=== PATIENT | female | born 1985 | race Two or more races ===

== ENCOUNTER 2016-08-01 01:17 | Inpatient (IN) | payer BC, OTHER ==
[2016-08-01] MEDS ORDERED: RINGERS SOLUTION,LACTATED 300 ML IV ONE (01:44)
[2016-08-01 02:08] LABS: ABSOLUTE EOSINOPHILS # (AUTO) 0.2 10^3/uL (0.0-0.6); ABSOLUTE LYMPHOCYTES (AUTO) 2.5 10^3/uL (0.5-4.7); ABSOLUTE NEUT (AUTO) 8.4 10^3/uL (1.7-8.2); BASOPHILS % (AUTO) 0.3 % (0-2); EOSINOPHILS % (AUTO) 1.7 % (0-6); HEMATOCRIT 34.1 % (36.0-47.0); HEMOGLOBIN 11.4 g/dL (12.0-15.5); HGB HCT DIFFERENCE 0.1; LYMPHOCYTES % (AUTO) 20.7 % (13-45); MEAN CORPUSCULAR HEMOGLOBIN 29.9 pg (27.0-33.4); MEAN CORPUSCULAR HGB CONC 33.4 g/dL (32.0-36.0); MEAN CORPUSCULAR VOLUME 90 fl (80-97); MONOCYTES % (AUTO) 8.1 % (3-13); RED BLOOD COUNT 3.81 10^6/uL (3.72-5.28); RED CELL DISTRIBUTION WIDTH 14.1 % (11.5-14.0); SEGMENTED NEUTROPHILS % (AUTO) 69.2 % (42-78); WHITE BLOOD COUNT 12.2 10^3/uL (4.0-10.5)
[2016-08-01 02:13] LABS: APPEARANCE,URINE CLOUDY; BILIRUBIN,URINE NEGATIVE (NEGATIVE); GLUCOSE, URINE 50 mg/dL (NEGATIVE); KETONES,URINE NEGATIVE (NEGATIVE); LEUKOCYTE ESTERASE,URINE LARGE (NEGATIVE); NITRITE,URINE NEGATIVE (NEGATIVE); PROTEIN,URINE NEGATIVE (NEGATIVE); URINE SPECIFIC GRAVITY 1.013; UROBILINOGEN,URINE NEGATIVE mg/dL (<2.0)
[2016-08-01 02:27] LABS: ALANINE AMINOTRANSFERASE 39 U/L (9-52); ALBUMIN 3.3 g/dL (3.5-5.0); ALKALINE PHOSPHATASE 109 U/L (38-126); ANION GAP 12 (5-19); ASPARTATE AMINO TRANSFERASE 22 U/L (14-36); BILIRUBIN,DIRECT 0.2 mg/dL (0.0-0.4); BILIRUBIN,TOTAL 0.4 mg/dL (0.2-1.3); BLOOD UREA NITROGEN 15 mg/dL (7-20); CALCIUM 9.4 mg/dL (8.4-10.2); CARBON DIOXIDE 21 mmol/L (22-30); CHLORIDE 107 mmol/L (98-107); CREATININE RESULT 0.53 mg/dL (0.52-1.25); GLUCOSE 113 mg/dL (75-110); LDH 387 U/L (313-618); POTASSIUM 4.1 mmol/L (3.6-5.0); TOTAL PROTEIN 6.3 g/dL (6.3-8.2)
[2016-08-01 02:30] LABS: URINE BARBITURATES SCREEN NEGATIVE; URINE METHADONE SCREEN NEGATIVE; URINE OPIATES LOW NEGATIVE; URINE PHENCYCLIDINE SCREEN NEGATIVE
[2016-08-01] MEDS: DINOPROSTONE 10 MG VAGINAL INSERT.SR PV PRN ×2 (03:18→11:47)
[2016-08-01] MEDS ORDERED: DINOPROSTONE 10 MG VAGINAL INSERT.SR ONE (03:18)
[2016-08-01] MEDS: RINGERS SOLUTION,LACTATED 1,000 ML IV PRN (03:19)
[2016-08-01] MEDS ORDERED: INSULIN LISPRO 100 UNIT/ML 3 ML VIAL SUBCUT SCH ×3 (08:00→19:30)
[2016-08-01] MEDS ORDERED: INSULIN NPH (ISOPHANE), HUMAN 100 UNIT/ML 3 ML SUBCUT SCH ×3 (08:00→19:30)
--- NOTE | 2016-08-01 08:01 | L&D Flow Sheet ---
LD Flowsheet Datetime Report Generated by CPN: 08/01/2016 08:00 Datetime: 08/01/2016 07:39 Vital Signs NBP Sys/Tania/Mean (mmHg): 116 (QS system process) : 65 (QS system process) : 84 (QS system process) Pulse: 68 (QS system process) Datetime: 08/01/2016 07:31 Pain Pain Scale: 1 (Cezar De Jesus RN) Pain Presence: Intermittent (Cezar De Jesus RN) Pain Type: Contraction (Cezar De Jesus RN) Pain Location: Abdomen (Cezar De Jesus RN) Pain Relief Measures: Comfort Measures (Cezar De Jesus RN) Pain Coping: Talking Through Contractions; Declines Medication or Epidural (Cezar De Jesus RN) Comfort Measures: Breathing/Relaxation (Cezar D eJesus RN) Provider Reviewed Strip: Yes (Cezar De Jesus RN) Patient Care Comments: No distress noted, no complaints. (Cezar De Jesus RN) Notification Reason: Status Update; Status; Labor Status; Uterine Activity (Cezar De Jesus RN) Communication Comments: Dr Miller notified of pt blood glucose level, history, vs, medications ordered, provider reviewed strip. Orders obtained for regular diet, pt may eat breakfast, then check pt blood glucose and give novolog 7units am/ 5units pm SQ, novalin 7units am/ 9units SQ pm, labetalol 200mg PO BID, levothyroxine 50mcg PO daily. (Cezar De Jesus RN) Datetime: 08/01/2016 07:30 Uterine Activity Monitor Mode: External; Palpation (Cezar Liza, RN) Frequency (min): irregular (Cezar Liza, RN) Quality: Mild (Cezar Liza, RN) Resting Tone (Palpate): Relaxed (Cezar Liza, RN) Assessment A Monitor Mode: External US (Cezar Liza, RN) FHR Baseline Rate : 130 (Cezar Liza, RN) Variability: Moderate 6-25 bpm (Cezar Liza, RN) Accelerations: 15X15 (Cezar Liza, RN) Decelerations: None (Cezar Liza, RN) Maternal Assessment Level of Consciousness: Fully Conscious (Cezar Liza, RN) Maternal Assessment Level of Consciousness: Fully Conscious (Cezar Liza, RN) DTR's/Clonus: DTRs 2+; No Clonus (Cezar Liza, RN) DTR's/Clonus: DTRs 2+; No Clonus (Cezar Liza, RN) Headache: Denies (Cezar Liza, RN) Headache: Denies (Cezar Liza, RN) Breath Sounds, Left: Clear and Equal (Cezar Liza, RN) Breath Sounds, Right: Clear and Equal (Cezar Liza, RN) Nausea/Vomiting: Denies (Cezar Liza, RN) RUQ Epigastric Pain: Denies (Czear Liza, RN) Communication Communication: RN at Bedside; RN Reviewed Strip (Cezar Liza, RN) Datetime: 08/01/2016 07:25 Bedside Blood Glucose: 97 (QS system process) Datetime: 08/01/2016 07:20 I/O Interventions: Up to BR (Cezar Liza, RN) Datetime: 08/01/2016 07:09 Vital Signs NBP Sys/Tania/Mean (mmHg): 133 (QS system process) : 83 (QS system process) : 103 (QS system process) Pulse: 70 (QS system process) Datetime: 08/01/2016 07:00 Uterine Activity Monitor Mode: External (Yung Kane, RN) Frequency (min): x1 (Yung Kane, RN) Quality: Mild (Yung Kane, RN) Resting Tone (Palpate): Relaxed (Yung Kane, RN) Assessment A Monitor Mode: External US (Yung Kane, RN) FHR Baseline Rate : 125 (Yung Kane, RN) Variability: Moderate 6-25 bpm (Yung Kane, RN) Accelerations: 10X10 (Yung Kane, RN) Datetime: 08/01/2016 06:40 Vital Signs NBP Sys/Tania/Mean (mmHg): 143 (QS system process) : 92 (QS system process) : 112 (QS system process) Pulse: 84 (QS system process) Datetime: 08/01/2016 06:30 Uterine Activity Monitor Mode: External (Yung Middleton RN) Frequency (min): 5-9 (Yung Middleton RN) Quality: Mild (Yung Middleton RN) Duration (sec): 40-50 (Yung Middleton RN) Resting Tone (Palpate): Relaxed (Yung Middleton RN) Assessment A Monitor Mode: External US (Yung Middleton, RN) FHR Baseline Rate : 120 (Yung Middleton, RN) Variability: Moderate 6-25 bpm (Yung Middleton, RN) Accelerations: 15X15 (Yung Middleton, RN) Datetime: 08/01/2016 06:10 Vital Signs NBP Sys/Tania/Mean (mmHg): 130 (QS system process) : 83 (QS system process) : 101 (QS system process) Pulse: 69 (QS system process) Datetime: 08/01/2016 06:00 Uterine Activity Monitor Mode: External (Yung Kane, RN) Frequency (min): x1 (Yung Kane, RN) Quality: Mild (Yung Kane, RN) Duration (sec): 100 (Yung Kane, RN) Resting Tone (Palpate): Relaxed (Yung Kane, RN) Assessment A Monitor Mode: External US (Yung Kane, RN) FHR Baseline Rate : 135 (Yung Kane, RN) Variability: Moderate 6-25 bpm (Yung Kane, RN) Accelerations: 15X15 (Yung Kane, RN) Datetime: 08/01/2016 05:46 I/O Interventions: Up to BR (Yung Kane, RN) Datetime: 08/01/2016 05:39 Vital Signs NBP Sys/Tania/Mean (mmHg): 123 (QS system process) : 69 (QS system process) : 91 (QS system process) Pulse: 71 (QS system process) Datetime: 08/01/2016 05:30 Uterine Activity Monitor Mode: External (Yung Kane, RN) Frequency (min): 5-9 (Yung Kane, RN) Quality: Mild (Yung Kane, RN) Duration (sec): 60-110 (Yung Kane, RN) Resting Tone (Palpate): Relaxed (Yung Kane, RN) Assessment A Monitor Mode: External US (Yung Kane, RN) FHR Baseline Rate : 135 (Yung Kane, RN) Variability: Moderate 6-25 bpm (Yung Kane, RN) Accelerations: None (Yung Kane, RN) Datetime: 08/01/2016 05:09 Vital Signs NBP Sys/Tania/Mean (mmHg): 132 (QS system process) : 77 (QS system process) : 100 (QS system process) Pulse: 73 (QS system process) Datetime: 08/01/2016 05:00 Uterine Activity Monitor Mode: External (Yung Kane, RN) Frequency (min): 4-10 (Yung Kane, RN) Quality: Mild (Yung Kane, RN) Duration (sec): 40-60 (Yung Kane, RN) Resting Tone (Palpate): Relaxed (Yung Kane, RN) Assessment A Monitor Mode: External US (Yung Kane, RN) FHR Baseline Rate : 140 (Yung Kane, RN) Variability: Moderate 6-25 bpm (Yung Kane, RN) Datetime: 08/01/2016 04:39 Vital Signs NBP Sys/Tania/Mean (mmHg): 113 (QS system process) : 67 (QS system process) : 85 (QS system process) Pulse: 76 (QS system process) Datetime: 08/01/2016 04:30 Frequency (min): x3 (Yung Kane, RN) Duration (sec): 40-50 (Yung Kane, RN) Assessment A Monitor Mode: External US (Yung Kane, RN) FHR Baseline Rate : 130 (Yung Kane, RN) Variability: Moderate 6-25 bpm (Yung Kane, RN) Datetime: 08/01/2016 04:09 Vital Signs NBP Sys/Tania/Mean (mmHg): 110 (QS system process) : 59 (QS system process) : 79 (QS system process) Pulse: 72 (QS system process) Datetime: 08/01/2016 04:01 Patient Care IV/Blood Work: New IV Bag Hung (Yung Middleton, RN) Patient Care Comments: LR infusing at 125 mL/hr (Yung Kane, RN) Datetime: 08/01/2016 03:59 Uterine Activity Monitor Mode: External (Yung Kane, RN) Frequency (min): X2 (Yung Middleton, RN) Quality: Mild (Yung Kane, RN) Duration (sec): 50 (Yung Middleton, RN) Resting Tone (Palpate): Relaxed (Yung Middleton, RN) Assessment A Monitor Mode: External US (Yung Middleton, RN) FHR Baseline Rate : 135 (Yung Middleton, RN) Variability: Moderate 6-25 bpm (Yung Maxwellford, RN) Datetime: 08/01/2016 03:39 Vital Signs NBP Sys/Tania/Mean (mmHg): 131 (QS system process) : 77 (QS system process) : 98 (QS system process) Pulse: 70 (QS system process) Datetime: 08/01/2016 03:30 Uterine Activity Monitor Mode: External (Yung Kane, RN) Frequency (min): 2-9 (Yung Kane, RN) Quality: Mild (Yung Kane, RN) Duration (sec): 40-70 (Yung Kane, RN) Resting Tone (Palpate): Relaxed (Yung Kane, RN) Assessment A Monitor Mode: External US (Yung Kane, RN) FHR Baseline Rate : 135 (Yung Kane, RN) Variability: Moderate 6-25 bpm (Yung Kane, RN) Accelerations: 15X15 (Yung Kane, RN) Datetime: 08/01/2016 03:21 Medications Cervical Ripening Agents: Cervidil (Yung Kane, RN) Datetime: 08/01/2016 03:13 Vaginal Exam Dilatation (cm): 1.0 (Yung Middleton RN) Effacement (%): 25 (Jacqueline Brice RN) Station: -3 (Jacqueline Brice RN) Exam by: ALANNA Mary (Yung Middleton RN) Cervix, Position: Posterior (Yung Middleton, ALANNA) Datetime: 08/01/2016 03:10 Vital Signs NBP Sys/Tania/Mean (mmHg): 130 (QS system process) : 80 (QS system process) : 100 (QS system process) Pulse: 71 (QS system process) Datetime: 08/01/2016 03:03 Patient Care IV/Blood Work: IV Started (Yung Middleton, RN) Patient Care Comments: IV restarted, last IV placed not flowing properly. New IV placed in L. Forearm. LR bolusing per order (Yung Middleton, RN) Datetime: 08/01/2016 03:00 Uterine Activity Monitor Mode: External (Yung Middleton, RN) Frequency (min): 5.5-7.5 (Yung Middleton, RN) Quality: Mild (Yung Middleton, RN) Duration (sec): 60-90 (Yung Maxwellford, RN) Resting Tone (Palpate): Relaxed (Yung Middleton, RN) Assessment A Monitor Mode: External US (Yung Middleton, RN) FHR Baseline Rate : 135 (Yung Middleton, RN) Variability: Moderate 6-25 bpm (Yung Kane, RN) Accelerations: 10X10 (Yung Middleton, RN) Datetime: 08/01/2016 02:50 Pain Pain Scale: 3 (Annotations: Only has pain during contraction ) (Yung Middleton, RN) Pain Presence: Intermittent (uYng Middleton, RN) Pain Type: Cramping (Yung Middleton, RN) Pain Location: Abdomen; Back (Yung Middleton, RN) Pain Goal: 0 (Yung Middleton, RN) Pain Relief Measures: Comfort Measures (Yung Middleton, RN) Pain Coping: Talking Through Contractions; Breathing Through Contractions (Yung Kane, RN) Membrane Status: Intact (Yung Kane, RN) Vaginal Bleeding: None (Yung Kane, RN) Maternal Assessment Level of Consciousness: Fully Conscious (Yung Middleton, RN) DTR's/Clonus: DTRs 2+; No Clonus (Yung Kane, RN) Headache: Denies (Yung Kane, RN) Nausea/Vomiting: Denies (Yung Kane, RN) RUQ Epigastric Pain: Denies (Yung Kane, RN) Datetime: 08/01/2016 02:30 Uterine Activity Monitor Mode: External (Yung Kane, RN) Frequency (min): 7.5-9 (Yung Kane, RN) Quality: Mild (Yung Kane, RN) Duration (sec): 70-100 (Yung Kane, RN) Resting Tone (Palpate): Relaxed (Yung Kane, RN) Assessment A Monitor Mode: External US (Yung Kane, RN) FHR Baseline Rate : 135 (Yung Kane, RN) Variability: Moderate 6-25 bpm (Yung Kane, RN) Accelerations: 15X15 (Yung Kane, RN) Datetime: 08/01/2016 02:13 Procedures: Consents Signed (Yungkobe Middleton, RN) Datetime: 08/01/2016 02:09 Patient Care IV/Blood Work: IV Started; IV Bolus Started; IV Infusing per Order (Yung Middleton, RN) Patient Care Comments: LR Bolusing (Yungkobe Middleton, RN) Datetime: 08/01/2016 02:05 Procedures: Labs Drawn (Yung Middleton RN)
[2016-08-01] MEDS ORDERED: LEVOTHYROXINE SODIUM 0.05 MG TABLET PO ONE (08:30)
[2016-08-01] MEDS: INSULIN NPH (ISOPHANE), HUMAN 100 UNIT/ML 3 ML SUBCUT SCH (09:44)
[2016-08-01] MEDS: INSULIN LISPRO 100 UNIT/ML 3 ML VIAL SUBCUT SCH (09:44)
[2016-08-01] MEDS: LABETALOL HCL 200 MG TABLET PO SCH ×2 (09:45→21:45)
[2016-08-01] MEDS ORDERED: LABETALOL HCL 200 MG TABLET PO SCH (10:00)
[2016-08-01] MEDS ORDERED: MISOPROSTOL 0.1 MG TABLET ONE ×2 (16:45→21:16)
[2016-08-01] MEDS ORDERED: MISOPROSTOL 0.1 MG TABLET PO ONE ×2 (17:00→21:11)
[2016-08-01] MEDS ORDERED: INSULIN LISPRO 100 UNIT/ML 3 ML VIAL ONE (18:52)
[2016-08-01] MEDS ORDERED: INSULIN NPH (ISOPHANE), HUMAN 100 UNIT/ML 3 ML ONE (18:53)
--- NOTE | 2016-08-01 20:01 | L&D Flow Sheet ---
LD Flowsheet Datetime Report Generated by CPN: 08/01/2016 20:00 Datetime: 08/01/2016 19:47 Level of Consciousness: Fully Conscious ([facility], ) DTR's/Clonus: DTRs 2+; No Clonus ([facility], ) Headache: Denies ([facility], ) Breath Sounds, Left: Clear and Equal ([facility], ) Breath Sounds, Right: Clear and Equal ([facility], RN) Nausea/Vomiting: Denies ([facility], ) RUQ Epigastric Pain: Denies ([facility], ) Datetime: 08/01/2016 19:41 NBP Sys/Tania/Mean (mmHg): 120 (QS system process) : 80 (QS system process) : 96 (QS system process) Pulse: 76 (QS system process) Datetime: 08/01/2016 19:10 NBP Sys/Tania/Mean (mmHg): 125 (QS system process) : 84 (QS system process) : 99 (QS system process) Pulse: 75 (QS system process) Datetime: 08/01/2016 19:04 Communication Comments: Dr Miller states to hold PM labetalol medication at this time. (Cezar De Jesus RN) Datetime: 08/01/2016 19:00 Monitor Mode: External; Palpation (Cezar De Jesus RN) Frequency (min): 1-5 (Cezar De Jesus RN) Quality: Mild (Cezar De Jesus RN) Duration (sec): 50-80 (Cezar De Jesus, RN) Duration Criteria: Less than Two 120 Second Contractions (Cezar De Jesus RN) Pattern: Normal: <= 5 Contractions in 10 Minutes (Cezar De Jesus RN) Resting Tone (Palpate): Relaxed (Cezar De Jesus RN) Monitor Mode: External US (Cezar De Jesus RN) FHR Baseline Rate : 135 (Cezar De Jesus RN) Variability: Moderate 6-25 bpm (Cezar De Jesus RN) Accelerations: 15X15 (Cezar De Jesus, RN) Decelerations: None (Cezar De Jesus RN) Pain Scale: 2 (Cezar De Jesus RN) Pain Presence: Intermittent (Cezar De Jesus RN) Pain Type: Contraction (Cezar De Jesus RN) Pain Location: Abdomen (Cezar De Jesus RN) Pain Relief Measures: Comfort Measures (Cezar De Jesus RN) Pain Coping: Talking Through Contractions; Declines Medication or Epidural (Cezar De Jesus RN) Comfort Measures: Breathing/Relaxation (Cezar De Jesus RN) Communication: RN at Bedside; RN Reviewed Strip (Cezar De Jesus RN) Datetime: 08/01/2016 18:52 Bedside Blood Glucose: 67 L (Annotations: MD Notified) (QS system process) Datetime: 08/01/2016 18:40 NBP Sys/Tania/Mean (mmHg): 114 (QS system process) : 69 (QS system process) : 85 (QS system process) Pulse: 76 (QS system process) Datetime: 08/01/2016 18:30 Respirations: 16 (Cezar Liza, RN) Temperature (F): 98.4 (Cezar Liza, RN) Temperature (C): 36.9 (QS system process) Monitor Mode: External; Palpation (Cezar Liza, RN) Frequency (min): 2-5 (Cezar Liza, RN) Quality: Mild (Cezar Liza, RN) Duration (sec): 70-90 (Cezar Liza, RN) Duration Criteria: Less than Two 120 Second Contractions (Cezar Liza, RN) Pattern: Normal: <= 5 Contractions in 10 Minutes (Cezar De Jesus, RN) Resting Tone (Palpate): Relaxed (Cezar De Jesus RN) Monitor Mode: External US (Cezar De Jesus RN) FHR Baseline Rate : 135 (Cezar Lizarragat, RN) Variability: Moderate 6-25 bpm (Cezar Lizarragat, RN) Accelerations: 15X15 (Cezar De Jesus, RN) Decelerations: None (Cezar De Jesus, RN) Level of Consciousness: Fully Conscious (Cezar De Jesus, RN) Headache: Denies (Cezar De Jesus RN) Nausea/Vomiting: Denies (Cezar De Jesus RN) RUQ Epigastric Pain: Denies (Cezar De Jesus RN) Communication: RN at Bedside; RN Reviewed Strip (Cezar De Jesus RN) Datetime: 08/01/2016 18:10 NBP Sys/Tania/Mean (mmHg): 108 (QS system process) : 58 (QS system process) : 76 (QS system process) Pulse: 72 (QS system process) Datetime: 08/01/2016 18:03 I/O Interventions: Up to BR (Cezar De Jesus, RN) Datetime: 08/01/2016 18:00 Respirations: 18 (Cezar De Jesus, RN) Monitor Mode: External; Palpation (Cezar De Jesus, RN) Frequency (min): 3-6 (Cezar De Jesus, RN) Quality: Mild (Cezar De Jesus, RN) Duration (sec): 60-80 (Cezar Jordaneet, RN) Duration Criteria: Less than Two 120 Second Contractions (Cezar De Jesus, RN) Pattern: Normal: <= 5 Contractions in 10 Minutes (Cezar De Jesus, RN) Resting Tone (Palpate): Relaxed (Cezar De Jesus, RN) Monitor Mode: External US (Cezar De Jesus, RN) FHR Baseline Rate : 135 (Cezar De Jesus, RN) Variability: Moderate 6-25 bpm (Cezar Lizarragat, RN) Accelerations: 15X15 (Cezar Jordaneet, RN) Decelerations: None (Cezar De Jesus, RN) Pain Scale: 1 (Cezar De Jesus RN) Pain Presence: Intermittent (Cezar De Jesus RN) Pain Type: Contraction (Cezar De Jesus, RN) Pain Location: Abdomen (Cezar De Jesus, RN) Pain Relief Measures: Comfort Measures (Cezar De Jesus RN) Pain Coping: Talking Through Contractions; Declines Medication or Epidural (Cezar De Jesus RN) Level of Consciousness: Fully Conscious (Cezar De Jesus RN) Headache: Denies (Cezar De Jesus RN) Nausea/Vomiting: Denies (Cezar De Jesus RN) Communication: RN at Bedside; RN Reviewed Strip (Cezar De Jesus RN) Datetime: 08/01/2016 17:40 NBP Sys/Tania/Mean (mmHg): 102 (QS system process) : 57 (QS system process) : 76 (QS system process) Pulse: 74 (QS system process) Datetime: 08/01/2016 17:30 Respirations: 18 (Cezar De Jesus RN) Monitor Mode: External; Palpation (Cezar De Jesus RN) Frequency (min): irregular (Cezar De Jesus RN) Quality: Mild (Cezar De Jesus RN) Resting Tone (Palpate): Relaxed (Cezar De Jesus RN) Monitor Mode: External US (Cezar De Jesus RN) FHR Baseline Rate : 135 (Cezar De Jesus RN) Variability: Moderate 6-25 bpm (Cezar De Jesus RN) Accelerations: 15X15 (Cezar De Jesus RN) Decelerations: None (Cezar De Jesus RN) Pain Presence: None/Denies (Cezar De Jesus RN) Level of Consciousness: Fully Conscious (Cezar De Jesus RN) Headache: Denies (Cezar De Jesus RN) Nausea/Vomiting: Denies (Cezar De Jesus RN) RUQ Epigastric Pain: Denies (Cezar De Jesus RN) Patient Care Comments: No distress noted, pt resting. (Cezar De Jesus RN) Communication: RN at Bedside; RN Reviewed Strip (Cezar De Jesus RN) Datetime: 08/01/2016 17:10 NBP Sys/Tania/Mean (mmHg): 119 (QS system process) : 73 (QS system process) : 92 (QS system process) Pulse: 77 (QS system process) Datetime: 08/01/2016 17:00 Respirations: 18 (Cezar De Jesus RN) Monitor Mode: External; Palpation (Cezar De Jesus RN) Frequency (min): irregular (Cezar De Jesus RN) Quality: Mild (Cezar De Jesus RN) Duration Criteria: Less than Two 120 Second Contractions (Cezar De Jesus RN) Pattern: Normal: <= 5 Contractions in 10 Minutes (Cezar De Jesus RN) Resting Tone (Palpate): Relaxed (Cezar De Jesus RN) Monitor Mode: External US (Cezar De Jesus RN) FHR Baseline Rate : 135 (Cezar De Jesus RN) Variability: Moderate 6-25 bpm (Cezar De Jesus RN) Accelerations: 15X15 (Cezar De Jesus RN) Decelerations: None (Cezar De Jesus RN) Pain Scale: 1 (Cezar De Jesus RN) Pain Type: Contraction (Cezar De Jesus RN) Pain Coping: Talking Through Contractions; Declines Medication or Epidural (Cezar De Jesus RN) Level of Consciousness: Fully Conscious (Cezar De Jesus RN) Headache: Denies (Cezar De Jesus RN) Nausea/Vomiting: Denies (Cezar De Jesus RN) Cervical Ripening Agents: Cytotec @ 50mcg PO (Cezar De Jesus RN) Provider Reviewed Strip: Yes (Cezar De Jesus RN) Communication: RN at Bedside; RN Reviewed Strip (Cezar De Jesus RN) Datetime: 08/01/2016 16:40 NBP Sys/Tania/Mean (mmHg): 116 (QS system process) : 69 (QS system process) : 87 (QS system process) Pulse: 89 (QS system process) Datetime: 08/01/2016 16:00 Patient Care Comments: Pt ambulating on unit, spouse at side. (Cezar De Jesus RN) Datetime: 08/01/2016 15:21 Respirations: 18 (Cezar De Jesus, RN) Monitor Mode: External; Palpation (Cezar De Jesus, RN) Frequency (min): irregular (Cezar Jordaneet, RN) Quality: Mild (Cezar Jordaneet, RN) Resting Tone (Palpate): Relaxed (Cezar Liza, RN) Monitor Mode: External US (Cezar De Jesus, RN) FHR Baseline Rate : 130 (Cezar De Jesus, RN) Variability: Moderate 6-25 bpm (Cezar Jordaneet, RN) Accelerations: 15X15 (Cezar Jordaneet, RN) Decelerations: None (Cezar Lizarragat, RN) Level of Consciousness: Fully Conscious (Cezar De Jesus, RN) Headache: Denies (Cezar De Jesus RN) Nausea/Vomiting: Denies (Cezar De Jesus RN) RUQ Epigastric Pain: Denies (Cezar De Jesus RN) IV/Blood Work: IV Saline Locked (Cezar De Jesus RN) Patient Care Comments: IV covered for shower. (Cezar De Jesus, ALANNA) Communication: RN at Bedside; RN Reviewed Strip (Cezar De Jesus RN) Communication Comments: Dr Miller notified of pt VE, reviewed strip. Orders to give cytotec 0.05mg PO at 1700. (Cezar De Jesus RN) Communication Comments: Monitors removed for shower; pt family member at side to assist pt with shower. (Cezar De Jesus RN) Datetime: 08/01/2016 15:20 Dilatation (cm): 1.0 (Cezar De Jesus RN) Effacement (%): 50 (Cezar De Jesus RN) Station: -3 (Cezar De Jesus RN) Exam by: Cheryl De Jesus RN (Cezar De Jesus, ALANNA) Vaginal Bleeding: None (Cezar De Jesus RN) Cervix, Consistency: Firm (Cezar De Jesus RN) Cervix, Position: Posterior (Ceazr De Jesus RN) Medication Comments: Cervidil removed (Cezar De Jesus RN) Datetime: 08/01/2016 15:09 NBP Sys/Tania/Mean (mmHg): 135 (QS system process) : 84 (QS system process) : 105 (QS system process) Pulse: 78 (QS system process) Datetime: 08/01/2016 15:00 Respirations: 16 (Cezar De Jesus, RN) Monitor Mode: External; Palpation (Cezar De Jesus, RN) Frequency (min): irregular (Cezar Lizarragat, RN) Quality: Mild (Cezar Jordaneet, RN) Resting Tone (Palpate): Relaxed (Cezar Jordaneet, RN) Monitor Mode: External US (Cezar De Jesus, RN) FHR Baseline Rate : 130 (Cezar Lizarragat, RN) Variability: Moderate 6-25 bpm (Cezar Liza, RN) Accelerations: 15X15 (Cezar Jordaneet, RN) Decelerations: None (Cezar De Jesus, RN) Communication: RN at Bedside; RN Reviewed Strip (Cezar De Jesus, RN) Datetime: 08/01/2016 14:40 NBP Sys/Tania/Mean (mmHg): 127 (QS system process) : 77 (QS system process) : 98 (QS system process) Pulse: 81 (QS system process) Datetime: 08/01/2016 14:30 Respirations: 18 (Cezar De Jesus, RN) Monitor Mode: External; Palpation (Cezar De Jesus, RN) Frequency (min): 3-8 (Cezar De Jesus, RN) Quality: Mild (Cezar Liza, RN) Duration (sec): 80-100 (Cezar Liza, RN) Duration Criteria: Less than Two 120 Second Contractions (Cezar De Jesus, RN) Pattern: Normal: <= 5 Contractions in 10 Minutes (Cezar Liza, RN) Resting Tone (Palpate): Relaxed (Cezar Liza, RN) Monitor Mode: External US (Cezar D eJesus, RN) FHR Baseline Rate : 135 (Cezar Lizarragat, RN) Variability: Moderate 6-25 bpm (Cezar Liza, RN) Accelerations: 15X15 (Cezar Liza, RN) Decelerations: None (Cezar Jordaneet, RN) Pain Scale: 1 (Cezar De Jesus, RN) Pain Type: Contraction (Cezar Lizarragat, RN) Level of Consciousness: Fully Conscious (Cezar De Jesus, RN) Headache: Denies (Cezar De Jesus, RN) Nausea/Vomiting: Denies (Cezar De Jesus, RN) Communication: RN at Bedside; RN Reviewed Strip (Cezar Liza, RN) Datetime: 08/01/2016 14:19 Communication Comments: pt sitting up to eat; intermittently coming off monitors. (Cezar Crespofleet, RN) Datetime: 08/01/2016 14:14 Communication Comments: Dr Miller notified of pt blood glucose 79, states pt may eat lunch tray now. (Cezar Crespofleet, RN) Datetime: 08/01/2016 14:13 Bedside Blood Glucose: 79 (Annotations: MD Notified) (QS system process) Datetime: 08/01/2016 14:11 NBP Sys/Tania/Mean (mmHg): 125 (QS system process) : 82 (QS system process) : 98 (QS system process) Pulse: 76 (QS system process) Datetime: 08/01/2016 14:00 Respirations: 20 (Cezar Jordaneet, RN) Monitor Mode: External; Palpation (Cezar Lizarragat, RN) Frequency (min): irregular (Cezar Liza, RN) Quality: Mild (Cezar Jordaneet, RN) Duration Criteria: Less than Two 120 Second Contractions (Cezar Jordaneet, RN) Pattern: Normal: <= 5 Contractions in 10 Minutes (Cezar Lizarragat, RN) Resting Tone (Palpate): Relaxed (Cezar De Jesus RN) Monitor Mode: External US (Cezar De Jesus RN) FHR Baseline Rate : 130 (Cezar De Jesus RN) Variability: Moderate 6-25 bpm (Cezar De Jesus RN) Accelerations: 15X15 (Cezar De Jesus RN) Decelerations: None (Cezar De Jesus RN) Pain Scale: 1 (Cezar De Jesus RN) Pain Type: Contraction (Cezar De Jesus RN) Pain Coping: Talking Through Contractions; Declines Medication or Epidural (Cezar De Jesus RN) Level of Consciousness: Fully Conscious (Cezar De Jesus RN) Headache: Denies (Cezar De Jesus RN) Nausea/Vomiting: Denies (Cezar De Jesus RN) RUQ Epigastric Pain: Denies (Cezar De Jesus RN) Communication: RN at Bedside; RN Reviewed Strip (Cezar De Jesus RN) Datetime: 08/01/2016 13:57 I/O Interventions: Up to BR (Cezar De Jesus RN) Datetime: 08/01/2016 13:39 NBP Sys/Tania/Mean (mmHg): 121 (QS system process) : 76 (QS system process) : 94 (QS system process) Pulse: 77 (QS system process) Datetime: 08/01/2016 13:30 Respirations: 20 (Cezar De Jesus RN) Temperature (F): 98.6 (Cezar De Jesus RN) Temperature (C): 37.0 (QS system process) Monitor Mode: External; Palpation (Cezar De Jesus RN) Frequency (min): irregular (Cezar De Jesus RN) Quality: Mild (Cezar De Jesus RN) Resting Tone (Palpate): Relaxed (Cezar De Jesus RN) Monitor Mode: External US (Cezar De Jesus RN) FHR Baseline Rate : 130 (Cezar De Jesus RN) Variability: Moderate 6-25 bpm (Cezar De Jesus RN) Accelerations: 15X15 (Cezar De Jesus RN) Decelerations: None (Cezar De Jesus RN) Pain Scale: 1 (Cezar De Jesus RN) Pain Type: Contraction (Cezar De Jesus RN) Pain Coping: Declines Medication or Epidural (Cezar De Jesus RN) Level of Consciousness: Fully Conscious (Cezar De Jesus RN) Headache: Denies (Cezar De Jesus RN) Nausea/Vomiting: Denies (Cezar De Jesus RN) Communication: RN at Bedside; RN Reviewed Strip (Cezar De Jesus RN) Datetime: 08/01/2016 13:09 NBP Sys/Tania/Mean (mmHg): 126 (QS system process) : 76 (QS system process) : 95 (QS system process) Pulse: 81 (QS system process) Datetime: 08/01/2016 13:00 Respirations: 18 (Cezar Liza, RN) Monitor Mode: External; Palpation (Cezar Liza, RN) Frequency (min): irregular (Cezar Liza, RN) Quality: Mild (Cezar Liza, RN) Duration Criteria: Less than Two 120 Second Contractions (Cezar Liza, RN) Pattern: Normal: <= 5 Contractions in 10 Minutes (Cezar Liza, RN) Resting Tone (Palpate): Relaxed (Cezar Liza, RN) Monitor Mode: External US (Cezar Liza, RN) FHR Baseline Rate : 135 (Cezar Liza, RN) FHR Baseline Changes: No Baseline Change (Cezar Liza, RN) Variability: Moderate 6-25 bpm (Cezar Liza, RN) Accelerations: 15X15 (Cezar De Jesus RN) Decelerations: None (Cezar De Jesus RN) Pain Scale: 1 (Cezar De Jesus RN) Pain Presence: Intermittent (Cezar De Jesus RN) Pain Type: Contraction (Cezar De Jesus RN) Pain Location: Abdomen (Cezar De Jesus RN) Pain Relief Measures: Comfort Measures (Cezar De Jesus RN) Pain Coping: Talking Through Contractions; Declines Medication or Epidural (Cezar De Jesus RN) Level of Consciousness: Fully Conscious (Cezar De Jesus RN) Headache: Denies (Cezar De Jesus RN) Nausea/Vomiting: Denies (Cezar De Jesus RN) RUQ Epigastric Pain: Denies (Cezar De Jesus RN) Comfort Measures: Breathing/Relaxation (Cezar De Jesus RN) Patient Care Comments: No distress noted, watching tv (Cezar De Jesus RN) Communication: RN at Bedside; RN Reviewed Strip (Cezar De Jesus RN) Datetime: 08/01/2016 12:39 NBP Sys/Tania/Mean (mmHg): 121 (QS system process) : 76 (QS system process) : 94 (QS system process) Pulse: 83 (QS system process) Datetime: 08/01/2016 12:30 Respirations: 16 (Cezar Jordaneet, RN) Monitor Mode: External; Palpation (Cezar Lizarragat, RN) Frequency (min): 7-8 (Cezar Jordaneet, RN) Quality: Mild (Cezar Liza, RN) Duration (sec): 60-80 (Cezar Liza, RN) Duration Criteria: Less than Two 120 Second Contractions (Cezar Liza, RN) Pattern: Normal: <= 5 Contractions in 10 Minutes (Cezar Liza, RN) Resting Tone (Palpate): Relaxed (Cezar Liza, RN) Monitor Mode: External US (Cezar Lizarragat, RN) FHR Baseline Rate : 135 (Cezar Crespofleet, RN) Variability: Moderate 6-25 bpm (Cezar Liza, RN) Accelerations: 15X15 (Cezar Liza, RN) Decelerations: None (Cezar Liza, RN) Pain Scale: 1 (Cezar Liza, RN) Pain Type: Contraction (Cezar Liza, RN) Level of Consciousness: Fully Conscious (Cezar Jordaneet, RN) Headache: Denies (Cezar Jordaneet, RN) Nausea/Vomiting: Denies (Cezar Jordaneet, RN) RUQ Epigastric Pain: Denies (Cezar Jordaneet, RN) Patient Position/Activity: Right Lateral (Cezar Lizarragat, RN) Communication: RN at Bedside; RN Reviewed Strip (Cezar De Jesus, RN) Datetime: 08/01/2016 12:00 Respirations: 18 (Cezar De Jesus, ALANNA) Monitor Mode: External; Palpation (Cezar De Jesus, RN) Frequency (min): 2-8 (Cezar De Jesus, RN) Quality: Mild (Cezar De Jesus RN) Duration (sec): 80-90 (Cezar Lizarragat, RN) Duration Criteria: Less than Two 120 Second Contractions (Cezar De Jesus, RN) Pattern: Normal: <= 5 Contractions in 10 Minutes (Cezar De Jesus RN) Resting Tone (Palpate): Relaxed (Cezar De Jesus RN) Monitor Mode: External US (Cezar De Jesus RN) FHR Baseline Rate : 135 (Cezar De Jesus, RN) Variability: Moderate 6-25 bpm (Cezar De Jesus, RN) Accelerations: 15X15 (Cezar De Jesus, RN) Decelerations: None (Cezar De Jesus RN) Pain Scale: 1 (Cezar De Jesus RN) Pain Type: Contraction (Cezar De Jesus RN) Pain Coping: Declines Medication or Epidural (Cezar De Jesus RN) Communication: RN at Bedside; RN Reviewed Strip (Cezar De Jesus RN) Datetime: 08/01/2016 11:41 NBP Sys/Tania/Mean (mmHg): 117 (QS system process) : 63 (QS system process) : 84 (QS system process) Pulse: 77 (QS system process) Datetime: 08/01/2016 11:30 Respirations: 18 (Cezar De Jesus RN) Monitor Mode: External; Palpation (Cezar De Jesus RN) Frequency (min): 6-9 (Cezar De Jesus, ALANNA) Quality: Mild (Cezar De Jesus, RN) Duration (sec): 90-110 (Cezar De Jesus, ALANNA) Duration Criteria: Less than Two 120 Second Contractions (Cezar De Jesus, ALANNA) Pattern: Normal: <= 5 Contractions in 10 Minutes (Cezar De Jesus, RN) Resting Tone (Palpate): Relaxed (Cezar De Jesus, ALANNA) Monitor Mode: External US (Cezar De Jesus, ALANNA) FHR Baseline Rate : 135 (Cezar De Jesus, RN) Variability: Moderate 6-25 bpm (Cezar De Jesus, RN) Accelerations: 15X15 (Cezar De Jesus, RN) Decelerations: None (Cezar De Jesus RN) Pain Scale: 1 (Cezar De Jesus RN) Pain Presence: Intermittent (Cezar De Jesus RN) Pain Type: Contraction (Cezar De Jesus, ALANNA) Pain Location: Abdomen (Cezar De Jesus RN) Pain Relief Measures: Comfort Measures (Cezar De Jesus RN) Pain Coping: Talking Through Contractions; Declines Medication or Epidural (Cezar De Jesus RN) Level of Consciousness: Fully Conscious (Cezar De Jesus RN) Headache: Denies (Cezar De Jesus RN) Nausea/Vomiting: Denies (Cezar De Jesus RN) RUQ Epigastric Pain: Denies (Cezar De Jesus RN) Comfort Measures: Breathing/Relaxation (Cezar De Jesus RN) Communication: RN at Bedside; RN Reviewed Strip (Cezar De Jesus RN) Datetime: 08/01/2016 11:09 NBP Sys/Tania/Mean (mmHg): 107 (QS system process) : 59 (QS system process) : 80 (QS system process) Pulse: 74 (QS system process) Datetime: 08/01/2016 11:01 Communication Comments: Dr Miller states pt may take a late lunch and shower when cervidil removed. (Cezar De Jesus RN) Datetime: 08/01/2016 11:00 Monitor Mode: External; Palpation (Cezar Liza, RN) Frequency (min): 8-10 (Cezar Liza, RN) Quality: Mild (Cezar Liza, RN) Duration (sec): 70-90 (Cezar Liza, RN) Duration Criteria: Less than Two 120 Second Contractions (Cezar Liza, RN) Pattern: Normal: <= 5 Contractions in 10 Minutes (Cezar Liza, RN) Resting Tone (Palpate): Relaxed (Cezar Liza, RN) Monitor Mode: External US (Cezar Liza, RN) FHR Baseline Rate : 135 (Cezar Liza, RN) Variability: Moderate 6-25 bpm (Cezar Liza, RN) Accelerations: 15X15 (Cezar Liza, RN) Decelerations: None (Cezar Liza, RN) Communication: RN at Bedside; RN Reviewed Strip (Cezar Liza, RN) Datetime: 08/01/2016 10:46 Bedside Blood Glucose: 95 (QS system process) Datetime: 08/01/2016 10:40 NBP Sys/Tania/Mean (mmHg): 115 (QS system process) : 58 (QS system process) : 79 (QS system process) Pulse: 72 (QS system process) Datetime: 08/01/2016 10:30 Respirations: 16 (Cezar De Jesus, ALANNA) Monitor Mode: External; Palpation (Cezar De Jesus, ALANNA) Frequency (min): 2-8 (Cezar De Jesus RN) Quality: Moderate (Cezar De Jesus RN) Duration (sec): 70-90 (Cezar De Jeuss, RN) Duration Criteria: Less than Two 120 Second Contractions (Cezar De Jesus, RN) Pattern: Normal: <= 5 Contractions in 10 Minutes (Cezar De Jesus, RN) Resting Tone (Palpate): Relaxed (Cezar De Jesus, RN) Monitor Mode: External US (Cezar De Jesus, RN) FHR Baseline Rate : 130 (Cezar De Jesus, RN) Variability: Moderate 6-25 bpm (Cezar De Jesus, RN) Accelerations: 15X15 (Cezar De Jesus, RN) Decelerations: None (Cezar De Jesus, RN) Pain Scale: 1 (Cezar De Jesus RN) Pain Type: Contraction (Cezar De Jesus RN) Pain Coping: Declines Medication or Epidural (Cezar De Jesus RN) Level of Consciousness: Fully Conscious (Cezar De Jesus RN) Headache: Denies (Cezar De Jesus RN) Nausea/Vomiting: Denies (Cezar De Jesus RN) Communication: RN at Bedside; RN Reviewed Strip (Cezar De Jesus RN) Datetime: 08/01/2016 10:10 NBP Sys/Tania/Mean (mmHg): 117 (QS system process) : 59 (QS system process) : 82 (QS system process) Pulse: 72 (QS system process) Datetime: 08/01/2016 10:00 Respirations: 16 (Cezar De Jesus RN) Monitor Mode: External; Palpation (Cezar De Jesus RN) Frequency (min): 6-8 (Cezar De Jesus RN) Quality: Mild (Cezar De Jesus RN) Duration (sec): 60-80 (Cezar De Jesus RN) Duration Criteria: Less than Two 120 Second Contractions (Cezar De Jesus RN) Pattern: Normal: <= 5 Contractions in 10 Minutes (Cezar De Jesus RN) Resting Tone (Palpate): Relaxed (Cezar De Jesus RN) Monitor Mode: External US (Cezar De Jesus RN) FHR Baseline Rate : 135 (Cezar De Jesus RN) Variability: Moderate 6-25 bpm (Cezar De Jesus RN) Accelerations: 15X15 (Cezar De Jesus RN) Decelerations: None (Cezar De Jesus RN) Pain Scale: 1 (Cezar De Jesus RN) Pain Type: Contraction (Cezar De Jesus RN) Patient Care Comments: No complaints, watching tv. (Cezar De Jesus RN) Communication: RN at Bedside; RN Reviewed Strip (Cezar De Jesus RN) Datetime: 08/01/2016 09:45 Bedside Blood Glucose: 93 (Cezar De Jesus RN) Medication Comments: Humalog, Humulin, Labetalol, Synthroid administered. fiber technicianALANNA Ni at bedside to verify dose administered. Breakfast tray given. (Cezar De Jesus RN) Datetime: 08/01/2016 09:40 NBP Sys/Tania/Mean (mmHg): 128 (QS system process) : 72 (QS system process) : 91 (QS system process) Pulse: 81 (QS system process) Datetime: 08/01/2016 09:30 Respirations: 18 (Cezar Lizarragat, RN) Monitor Mode: External; Palpation (Cezar De Jesus, RN) Frequency (min): irregular (Cezar De Jesus, RN) Quality: Mild (Cezar Lizarragat, RN) Resting Tone (Palpate): Relaxed (Cezar De Jesus, RN) Monitor Mode: External US (Cezar De Jesus, RN) FHR Baseline Rate : 130 (Cezar Jordaneet, RN) FHR Baseline Changes: No Baseline Change (Cezar Jordaneet, RN) Variability: Moderate 6-25 bpm (Cezar Liza, RN) Accelerations: 15X15 (Cezar Jordaneet, RN) Decelerations: None (Cezar Lizarragat, RN) Pain Scale: 1 (Cezar De Jesus RN) Communication: RN at Bedside; RN Reviewed Strip (Cezar De Jesus, RN) Datetime: 08/01/2016 09:09 NBP Sys/Tania/Mean (mmHg): 110 (QS system process) : 66 (QS system process) : 83 (QS system process) Pulse: 71 (QS system process) Datetime: 08/01/2016 08:51 Communication Comments: Awaiting breakfast tray. (Cezar Liza, RN) Datetime: 08/01/2016 08:39 NBP Sys/Tania/Mean (mmHg): 125 (QS system process) : 75 (QS system process) : 94 (QS system process) Pulse: 76 (QS system process) Datetime: 08/01/2016 08:30 Respirations: 18 (Cezar De Jesus, RN) Monitor Mode: External; Palpation (Cezar De Jesus, RN) Frequency (min): irregular (Cezar De Jesus, RN) Quality: Mild (Cezar Lizarragat, RN) Resting Tone (Palpate): Relaxed (Cezar De Jesus, RN) Monitor Mode: External US (Cezar De Jesus, RN) FHR Baseline Rate : 130 (Cezar De Jesus, RN) Variability: Moderate 6-25 bpm (Cezar De Jesus, RN) Accelerations: 15X15 (Cezar De Jesus, RN) Decelerations: None (Cezar De Jesus RN) Pain Scale: 1 (Cezar De Jesus RN) Pain Presence: Intermittent (Cezar De Jesus, RN) Pain Type: Contraction (Cezar De Jesus, RN) Pain Location: Abdomen (Cezar De Jesus, RN) Pain Relief Measures: Comfort Measures (Cezar De Jesus, RN) Level of Consciousness: Fully Conscious (Cezar De Jesus, RN) Headache: Denies (Cezar De Jesus, RN) Nausea/Vomiting: Denies (Cezar De Jesus, RN) RUQ Epigastric Pain: Denies (Cezar De Jesus, RN) Comfort Measures: Breathing/Relaxation (Cezar De Jesus, RN) Communication: RN at Bedside; RN Reviewed Strip (Cezar De Jesus RN) Datetime: 08/01/2016 08:09 NBP Sys/Tania/Mean (mmHg): 136 (QS system process) : 81 (QS system process) : 103 (QS system process) Pulse: 70 (QS system process) Datetime: 08/01/2016 08:00 Temperature (F): 98.1 (Cezar De Jesus RN) Temperature (C): 36.7 (QS system process) Monitor Mode: External; Palpation (Cezar De Jesus RN) Frequency (min): irregular (Cezar De Jesus RN) Quality: Mild (Cezar De Jesus RN) Resting Tone (Palpate): Relaxed (Cezar De Jesus RN) Monitor Mode: External US (Cezar De Jesus RN) FHR Baseline Rate : 130 (Cezar De Jesus RN) FHR Baseline Changes: No Baseline Change (Cezar De Jesus RN) Variability: Moderate 6-25 bpm (Cezar De Jesus RN) Accelerations: 15X15 (Cezar De Jesus RN) Decelerations: None (Cezar De Jesus RN) Instructional Method: Demo; Verbal; Patient Instructed; Family/Support Person Instructed; Verbalized Understanding (Cezar De Jesus RN) Plan of Care: Plan of Care Discussed; Vaginal Delivery; Induction (Cezar De Jesus RN) Labor/Induction: Labor Stages; Cervical Ripening; Induction (Cezar De Jesus RN) Pain Management: Epidural; PRN Medications; Pain Scale/Goals; Comfort Measures (Cezar De Jesus RN) Medications: Cervical Ripening (Cezar De Jesus RN) Related: Common Discomforts of ; Maternal Physical Changes; Maternal Emotional Changes; Nutrition; Hydration; Activity and Rest (Cezar De Jesus RN) Communication: RN at Bedside; RN Reviewed Strip (Cezar De Jesus RN) Datetime: 08/01/2016 07:31 Communication Comments: Dr Miller notified of pt blood glucose level, history, vs, medications ordered, provider reviewed strip. Orders obtained for regular diet, pt may eat breakfast, then check pt blood glucose and give novolog 7units am/ 5units pm SQ, novalin 7units am/ 9units SQ pm, labetalol 200mg PO BID, levothyroxine 50mcg PO daily. Check pt's blood glucose levels after meals and qhs. (Cezar De Jesus RN)
[2016-08-02] MEDS ORDERED: MISOPROSTOL 0.1 MG TABLET ONE ×2 (00:56→05:16)
[2016-08-02] MEDS: RINGERS SOLUTION,LACTATED 1,000 ML IV PRN (01:00)
[2016-08-02] MEDS ORDERED: MISOPROSTOL 0.1 MG TABLET PO ONE ×2 (05:09→23:57)
[2016-08-02] MEDS ORDERED: LEVOTHYROXINE SODIUM 0.05 MG TABLET PO SCH ×2 (06:00→09:00)
--- NOTE | 2016-08-02 08:00 | L&D Flow Sheet ---
LD Flowsheet Datetime Report Generated by CPN: 08/02/2016 08:00 Datetime: 08/02/2016 07:40 NBP Sys/Tania/Mean (mmHg): 124 (QS system process) : 90 (QS system process) : 103 (QS system process) Pulse: 78 (QS system process) LaborFlag: Antepartum (QS system process) Datetime: 08/02/2016 07:30 Level of Consciousness: Fully Conscious (Yeny Shaye, RN) DTR's/Clonus: DTRs 1+; No Clonus (Yeny Shaye, RN) Headache: Denies (Yeny Shaye, RN) Breath Sounds, Left: Clear and Equal (Yeny Shaye, RN) Breath Sounds, Right: Clear and Equal (Yeny Shaye, RN) Nausea/Vomiting: Denies (Yeny Shaye, RN) RUQ Epigastric Pain: Denies (Yeyn Shaye, RN) Datetime: 08/02/2016 07:12 Communication: Report Given to @ HSethShaye, RN; care relinquished at this time. (Samia Sims, RN) Datetime: 08/02/2016 07:10 NBP Sys/Tania/Mean (mmHg): 125 (QS system process) : 76 (QS system process) : 94 (QS system process) Pulse: 64 (QS system process) LaborFlag: Antepartum (QS system process) Datetime: 08/02/2016 07:00 Monitor Mode: External; Palpation (Samia Field, RN) Frequency (min): 2-5 (Samia Field, RN) Quality: Mild/Moderate (Samia Field, RN) Duration (sec): 70-90 (Samia Field, RN) Resting Tone (Palpate): Relaxed (Samia Field, RN) Monitor Mode: External US (Samia Field, RN) FHR Baseline Rate : 130 (Samia Field, RN) Variability: Moderate 6-25 bpm (Samia Field, RN) Accelerations: None (Samia Field, RN) Decelerations: None (Samia Field, RN) Datetime: 08/02/2016 06:40 NBP Sys/Tania/Mean (mmHg): 118 (QS system process) : 80 (QS system process) : 95 (QS system process) Pulse: 62 (QS system process) LaborFlag: Antepartum (QS system process) Datetime: 08/02/2016 06:30 Monitor Mode: External; Palpation (Samia Field, RN) Frequency (min): 2-3.5 (Samia Field, RN) Quality: Mild/Moderate (Samia Field, RN) Duration (sec): 80-90 (Samia Field, RN) Resting Tone (Palpate): Relaxed (Samia Field, RN) Monitor Mode: External US (Samia Field, RN) FHR Baseline Rate : 125 (Samia Field, RN) Variability: Moderate 6-25 bpm (Samia Field, RN) Accelerations: 15X15 (Samia Field, RN) Decelerations: None (Samia Field, RN) Datetime: 08/02/2016 06:17 I/O Interventions: Up to BR (Samia Field, RN) Datetime: 08/02/2016 06:10 NBP Sys/Tania/Mean (mmHg): 111 (QS system process) : 65 (QS system process) : 81 (QS system process) Pulse: 62 (QS system process) LaborFlag: Antepartum (QS system process) Datetime: 08/02/2016 06:00 Monitor Mode: External; Palpation (Samia Sims RN) Frequency (min): 2-4.5 (Samia Sims RN) Quality: Mild/Moderate (Samia Sims RN) Duration (sec): 80-90 (Samia Sims, RN) Resting Tone (Palpate): Relaxed (Samia Sims, RN) Monitor Mode: External US (Samia Sims, RN) FHR Baseline Rate : 130 (Samia Sims, RN) Variability: Moderate 6-25 bpm (Samia Sims, RN) Accelerations: None (Samia Sims, RN) Decelerations: Variable (Samia Sims, RN) Datetime: 08/02/2016 05:59 Communication: RN Reviewed Strip; Call/Page Placed to Provider (Samia Sims RN) Communication Comments: Informed Dr. Miller of patient's request for breakfast; orders received to allow patient to eat breakfast (Samia Sims RN) Datetime: 08/02/2016 05:41 NBP Sys/Tania/Mean (mmHg): 111 (QS system process) : 75 (QS system process) : 88 (QS system process) Pulse: 70 (QS system process) LaborFlag: Antepartum (QS system process) Datetime: 08/02/2016 05:30 Monitor Mode: External; Palpation (Samia Sims RN) Frequency (min): 2-5 (Samia Sims RN) Quality: Mild/Moderate (Samia Sims RN) Duration (sec): 70-90 (Samia Sims RN) Resting Tone (Palpate): Relaxed (Samia Sims RN) Monitor Mode: External US (Samia Sims RN) FHR Baseline Rate : 135 (Samia Sims RN) Variability: Moderate 6-25 bpm (Samia Sims RN) Accelerations: 10X10 (Samia Field, RN) Decelerations: None (Samia Field, RN) Datetime: 08/02/2016 05:22 Cervical Ripening Agents: Cytotec @ 25 mcg PO (Samia Field, RN) Datetime: 08/02/2016 05:10 NBP Sys/Tania/Mean (mmHg): 118 (QS system process) : 83 (QS system process) : 96 (QS system process) Pulse: 73 (QS system process) LaborFlag: Antepartum (QS system process) Datetime: 08/02/2016 05:07 Dilatation (cm): 2.0 (Samia Sims, RN) Effacement (%): 50 (Samia Sims, RN) Station: -2 (Samia Sims, RN) Exam by: ALANNA Whyte (Samia Sims, RN) Datetime: 08/02/2016 05:00 Monitor Mode: External; Palpation (Samia Sims, RN) Frequency (min): 2-7.5 (Samia Sism, RN) Quality: Mild/Moderate (Samia Sims, RN) Duration (sec): 60-100 (Samia Sims, RN) Resting Tone (Palpate): Relaxed (Samia Sims, RN) Monitor Mode: External US (Samia Sims, RN) FHR Baseline Rate : 135 (Samiahakeem Sims, RN) Variability: Moderate 6-25 bpm (Samia Field, RN) Accelerations: 15X15 (Samia Field, RN) Decelerations: None (Samia Sims, RN) I/O Interventions: Up to BR (Samia Sims, RN) Datetime: 08/02/2016 04:59 Bedside Blood Glucose: 87 (QS system process) LaborFlag: Antepartum (QS system process) Datetime: 08/02/2016 04:40 NBP Sys/Tania/Mean (mmHg): 126 (QS system process) : 88 (QS system process) : 103 (QS system process) Pulse: 83 (QS system process) LaborFlag: Antepartum (QS system process) Datetime: 08/02/2016 04:30 Monitor Mode: External; Palpation (Samia Sims RN) Frequency (min): 2-4.5 (Samia Sims RN) Quality: Mild/Moderate (Samia Sims RN) Duration (sec): 70-110 (Samia Sims RN) Resting Tone (Palpate): Relaxed (Samia Sims RN) Monitor Mode: External US (Samia Sims RN) FHR Baseline Rate : 135 (Samia Sims RN) Variability: Moderate 6-25 bpm (Samia Sims RN) Accelerations: 15X15 (Samia Sims RN) Decelerations: None (Samia Field, RN) Datetime: 08/02/2016 04:11 NBP Sys/Tania/Mean (mmHg): 131 (QS system process) : 88 (QS system process) : 105 (QS system process) Pulse: 74 (QS system process) LaborFlag: Antepartum (QS system process) Datetime: 08/02/2016 04:00 Monitor Mode: External; Palpation (Samia Sims, RN) Frequency (min): 2-4 (Samia Sims, RN) Quality: Mild/Moderate (Samia Sims, RN) Duration (sec): 80-100 (Samiahakeem Sims, RN) Resting Tone (Palpate): Relaxed (Samia Sims, RN) Monitor Mode: External US (Samia Sims, RN) FHR Baseline Rate : 135 (Samiahakeem Sims, RN) Variability: Moderate 6-25 bpm (Samia Field, RN) Accelerations: None (Samia Field, RN) Decelerations: None (Samia Field, RN) Datetime: 08/02/2016 03:41 NBP Sys/Tania/Mean (mmHg): 124 (QS system process) : 93 (QS system process) : 106 (QS system process) Pulse: 91 (QS system process) LaborFlag: Antepartum (QS system process) Datetime: 08/02/2016 03:30 Monitor Mode: External; Palpation (Samia Field, RN) Frequency (min): 2-4.5 (Samia Field, RN) Quality: Mild/Moderate (Samia Field, RN) Duration (sec): 70-110 (Samia Field, RN) Resting Tone (Palpate): Relaxed (Samia Field, RN) Monitor Mode: External US (Samia Field, RN) FHR Baseline Rate : 140 (Samia Field, RN) Variability: Moderate 6-25 bpm (Samia Field, RN) Accelerations: None (Samia Field, RN) Decelerations: None (Samia Field, RN) Datetime: 08/02/2016 03:10 NBP Sys/Tania/Mean (mmHg): 139 (QS system process) : 94 (QS system process) : 112 (QS system process) Pulse: 77 (QS system process) LaborFlag: Antepartum (QS system process) Datetime: 08/02/2016 03:00 Monitor Mode: External; Palpation (Samia Field, RN) Frequency (min): 2-6.5 (Samia Field, RN) Quality: Mild/Moderate (Samia Field, RN) Duration (sec): 60-140 (Samia Field, RN) Resting Tone (Palpate): Relaxed (Samia Field, RN) Monitor Mode: External US (Samia Field, RN) FHR Baseline Rate : 140 (Samia Field, RN) Variability: Moderate 6-25 bpm (Samia Field, RN) Accelerations: 15X15 (Samia Field, RN) Decelerations: None (Samia Field, RN) Datetime: 08/02/2016 02:40 I/O Interventions: Up to BR (Samia Field, RN) Datetime: 08/02/2016 02:30 Monitor Mode: External; Palpation (Samia Field, RN) Frequency (min): 1.5-4.5 (Samia Field, RN) Quality: Mild/Moderate (Samia Field, RN) Duration (sec): 80-90 (Samia Field, RN) Resting Tone (Palpate): Relaxed (Samia Field, RN) Monitor Mode: External US (Samia Field, RN) FHR Baseline Rate : 135 (Samia Field, RN) Variability: Moderate 6-25 bpm (Samia Field, RN) Accelerations: 15X15 (Samia Field, RN) Decelerations: None (Samia Field, RN) Datetime: 08/02/2016 02:10 NBP Sys/Tania/Mean (mmHg): 137 (QS system process) : 89 (QS system process) : 109 (QS system process) Pulse: 77 (QS system process) LaborFlag: Antepartum (QS system process) Datetime: 08/02/2016 02:00 Monitor Mode: External; Palpation (Samia Field, RN) Frequency (min): 1.5-6.5 (Samia Field, RN) Quality: Mild/Moderate (Samia Field, RN) Duration (sec): 60-90 (Samia Field, RN) Resting Tone (Palpate): Relaxed (Samia Field, RN) Monitor Mode: External US (Samia Field, RN) FHR Baseline Rate : 135 (Samia Field, RN) Variability: Moderate 6-25 bpm (Samia Field, RN) Accelerations: 15X15 (Samia Field, RN) Decelerations: None (Samia Field, RN) Datetime: 08/02/2016 01:41 NBP Sys/Tania/Mean (mmHg): 133 (QS system process) : 83 (QS system process) : 102 (QS system process) Pulse: 70 (QS system process) LaborFlag: Antepartum (QS system process) Datetime: 08/02/2016 01:30 Monitor Mode: External; Palpation (Samia Field, RN) Frequency (min): 2-4 (Samia Field, RN) Quality: Mild/Moderate (Samia Field, RN) Duration (sec): 60-80 (Samia Field, RN) Resting Tone (Palpate): Relaxed (Samia Field, RN) Monitor Mode: External US (Samia Field, RN) FHR Baseline Rate : 140 (Samia Field, RN) Variability: Moderate 6-25 bpm (Samia Field, RN) Accelerations: 15X15 (Samia Field, RN) Decelerations: None (Samia Field, RN) Datetime: 08/02/2016 01:10 NBP Sys/Tania/Mean (mmHg): 125 (QS system process) : 81 (QS system process) : 98 (QS system process) Pulse: 75 (QS system process) LaborFlag: Antepartum (QS system process) Datetime: 08/02/2016 01:02 Temperature (F): 97.8 (Samia Sims RN) Temperature (C): 36.6 (QS system process) Cervical Ripening Agents: Cytotec @ 25 mcg PO (Samia Sims RN) IV/Blood Work: IV Infusing per Order; New IV Bag Hung (Samia Sims RN) LaborFlag: Antepartum (QS system process) Datetime: 08/02/2016 01:00 Monitor Mode: External; Palpation (Samia Sims RN) Frequency (min): 2.5-3.5 (Samia Sims RN) Quality: Mild/Moderate (Samia Sims RN) Duration (sec): 60-70 (Samia Sims RN) Resting Tone (Palpate): Relaxed (Samia Sims RN) Monitor Mode: External US (Samia Sims RN) FHR Baseline Rate : 145 (Samia Sims RN) Variability: Moderate 6-25 bpm (Samia Field, RN) Accelerations: [facility]X15 [facility] Decelerations: Variable (Samia Field, RN) Datetime: 08/02/2016 00:49 I/O Interventions: Up to BR (Samia Field, RN) Datetime: 08/02/2016 00:48 Dilatation (cm): 1.5 (Samia Sims, RN) Effacement (%): 50 (Samia , RN) Station: -2 (Samia , RN) Exam by: J.Field RN ([facility], [facility] Datetime: 08/02/2016 00:45 Bedside Blood Glucose: 99 (QS system process) LaborFlag: Antepartum (QS system process) Datetime: 08/02/2016 00:40 NBP Sys/Tania/Mean (mmHg): 118 (QS system process) : 78 (QS system process) : 93 (QS system process) Pulse: 77 (QS system process) LaborFlag: Antepartum (QS system process) Datetime: 08/02/2016 00:30 Monitor Mode: External; Palpation (Samia Sims RN) Frequency (min): 2.5-6 (Samia Sims RN) Quality: Mild/Moderate (Samia Sims RN) Duration (sec): 70-110 (Samia Sims RN) Resting Tone (Palpate): Relaxed (Samia Sims RN) Monitor Mode: External US (Samia Sims RN) FHR Baseline Rate : 145 (Samia Sims RN) Variability: Moderate 6-25 bpm (Samia Sims, RN) Accelerations: 15X15 (Samia Field, RN) Decelerations: Variable (Samia Field, RN) Datetime: 08/02/2016 00:29 Patient Care Comments: Pt turned from L tilt to R lateral. (Latosha Yan, RN) Communication Comments: Dr. Miller viewed strip. (Latosha Yan, RN) Datetime: 08/02/2016 00:10 NBP Sys/Tania/Mean (mmHg): 125 (QS system process) : 64 (QS system process) : 89 (QS system process) Pulse: 74 (QS system process) LaborFlag: Antepartum (QS system process) Datetime: 08/02/2016 00:00 Monitor Mode: External; Palpation (Samia Field, RN) Frequency (min): 3-5.5 (Samia Field, RN) Quality: Mild (Samia Field, RN) Duration (sec): 60-120 (Samia Field, RN) Resting Tone (Palpate): Relaxed (Samia Field, RN) Monitor Mode: External US (Samia Field, RN) FHR Baseline Rate : 140 (Samia Field, RN) Variability: Moderate 6-25 bpm (Samia Field, RN) Accelerations: 15X15 (Samia Field, RN) Decelerations: Late; Variable (Samia Field, RN) Datetime: 08/01/2016 23:57 Communication Comments: Orders received from Dr. Miller for next vag exam - if cervix is less than 3, Cytotec 25 mcg PO; if more than 3, start Pitocin (Samia Field, RN) Datetime: 08/01/2016 23:40 NBP Sys/Tania/Mean (mmHg): 123 (QS system process) : 70 (QS system process) : 92 (QS system process) Pulse: 70 (QS system process) LaborFlag: Antepartum (QS system process) Datetime: 08/01/2016 23:30 Monitor Mode: External; Palpation (Samia Field, RN) Frequency (min): 3-4.5 (Samia Field, RN) Quality: Mild (Samia Field, RN) Duration (sec): 60-90 (Samia Field, RN) Resting Tone (Palpate): Relaxed (Samia Field, RN) Monitor Mode: External US (Samia Field, RN) FHR Baseline Rate : 140 (Samia Field, RN) Variability: Moderate 6-25 bpm (Samia Field, RN) Accelerations: 15X15 (Samia Field, RN) Decelerations: Variable (Samia Field, RN) Datetime: 08/01/2016 23:10 NBP Sys/Tania/Mean (mmHg): 117 (QS system process) : 73 (QS system process) : 90 (QS system process) Pulse: 70 (QS system process) LaborFlag: Antepartum (QS system process) Datetime: 08/01/2016 23:00 Monitor Mode: External; Palpation (Samia Field, RN) Frequency (min): 2.5-6 (Samia Field, RN) Quality: Mild (Samia Field, RN) Duration (sec): 60-100 (Samia Field, RN) Resting Tone (Palpate): Relaxed (Samia Field, RN) Monitor Mode: External US (Samia Field, RN) FHR Baseline Rate : 135 (Samia Field, RN) Variability: Moderate 6-25 bpm (Samia Field, RN) Accelerations: 15X15 (Samia Field, RN) Decelerations: Variable (Samia Field, RN) Datetime: 08/01/2016 22:45 I/O Interventions: Up to BR (Samia Field, RN) Datetime: 08/01/2016 22:40 NBP Sys/Tania/Mean (mmHg): 113 (QS system process) : 61 (QS system process) : 81 (QS system process) Pulse: 73 (QS system process) LaborFlag: Antepartum (QS system process) Datetime: 08/01/2016 22:30 Monitor Mode: External; Palpation (Samia Sims, RN) Frequency (min): 3.5-9.5 (Samia , RN) Quality: Mild (Samia Field, RN) Duration (sec): 70-120 (Samia Field, RN) Resting Tone (Palpate): Relaxed (Samia Field, RN) Monitor Mode: External US (Samia Field, RN) FHR Baseline Rate : 135 (Samia Field, RN) Variability: Moderate 6-25 bpm (Samia Field, RN) Accelerations: 15X15 (Samia Field, RN) Decelerations: None (Samia Field, RN) Datetime: 08/01/2016 22:10 NBP Sys/Tania/Mean (mmHg): 104 (QS system process) : 59 (QS system process) : 76 (QS system process) Pulse: 78 (QS system process) LaborFlag: Antepartum (QS system process) Datetime: 08/01/2016 22:00 Monitor Mode: External; Palpation (Samia Field, RN) Frequency (min): 2.5-5.5 (Samia Field, RN) Quality: Mild (Samia Field, RN) Duration (sec): 50-90 (Samia Field, RN) Resting Tone (Palpate): Relaxed (Samia Field, RN) Monitor Mode: External US (Samia Field, RN) FHR Baseline Rate : 135 (Samia Field, RN) Variability: Moderate 6-25 bpm (Samia Field, RN) Accelerations: 15X15 (Samia Field, RN) Decelerations: None (Samia Field, RN) Datetime: 08/01/2016 21:43 I/O Interventions: Popsicle (Samia Sims, RN) Datetime: 08/01/2016 21:40 NBP Sys/Tania/Mean (mmHg): 129 (QS system process) : 75 (QS system process) : 94 (QS system process) Pulse: 81 (QS system process) LaborFlag: Antepartum (QS system process) Datetime: 08/01/2016 21:30 Monitor Mode: External; Palpation (Samia Sims, RN) Frequency (min): 3.5-6 (Samia Sims, RN) Quality: Mild (Samia Sims RN) Duration (sec): 60-80 (Samia Sims RN) Resting Tone (Palpate): Relaxed (Samia Field, RN) Monitor Mode: External US (Samia Field, RN) FHR Baseline Rate : 135 (Samia Field, RN) Variability: Moderate 6-25 bpm (Samia Field, RN) Accelerations: 10X10 (Samia Field, RN) Decelerations: Variable (Samia Field, RN) Datetime: 08/01/2016 21:20 Cervical Ripening Agents: Cytotec @ 25 mcg PO (Samia Field, RN) Datetime: 08/01/2016 21:10 NBP Sys/Tania/Mean (mmHg): 126 (QS system process) : 74 (QS system process) : 94 (QS system process) Pulse: 80 (QS system process) LaborFlag: Antepartum (QS system process) Datetime: 08/01/2016 21:08 Communication: RN Reviewed Strip; Provider Orders Received (Samia Sims RN) Communication Comments: Informed Dr. Miller of vag exam; orders recevied for Cytotec 25 mcg PO (Samia Sims RN) Datetime: 08/01/2016 21:07 Dilatation (cm): 1.0 (Samia Sims RN) Effacement (%): 50 (Samia Sims RN) Station: -3 (Samia Sims RN) Exam by: ALANNA Whyte (Samia Sims RN) Datetime: 08/01/2016 21:00 Monitor Mode: External; Palpation (Samia Sims RN) Frequency (min): 3.5-7.5 (Samia Sims RN) Quality: Mild (Samia Field, RN) Duration (sec): 60-90 (Samia Field, RN) Resting Tone (Palpate): Relaxed (Samia Field, RN) Monitor Mode: External US (Samia Field, RN) FHR Baseline Rate : 130 (Samia Field, RN) Variability: Moderate 6-25 bpm (Samia Field, RN) Accelerations: 15X15 (Samia Field, RN) Decelerations: None (Samia Field, RN) Datetime: 08/01/2016 20:40 NBP Sys/Tania/Mean (mmHg): 112 (QS system process) : 71 (QS system process) : 86 (QS system process) Pulse: 74 (QS system process) LaborFlag: Antepartum (QS system process) Datetime: 08/01/2016 20:37 Bedside Blood Glucose: 111 H (QS system process) LaborFlag: Antepartum (QS system process) Datetime: 08/01/2016 20:30 Monitor Mode: External; Palpation (Samia Field, RN) Frequency (min): 2-4.5 (Samia Field, RN) Quality: Mild (Samia Field, RN) Duration (sec): 60-80 (Samia Field, RN) Resting Tone (Palpate): Relaxed (Samia Field, RN) Monitor Mode: External US (Samia Field, RN) FHR Baseline Rate : 130 (Samia Field, RN) Variability: Moderate 6-25 bpm (Samia Field, RN) Accelerations: 15X15 (Samia Field, RN) Decelerations: None (Samia Field, RN) Datetime: 08/01/2016 20:14 I/O Interventions: Up to BR (Samia Field, RN) Datetime: 08/01/2016 20:10 NBP Sys/Tania/Mean (mmHg): 127 (QS system process) : 79 (QS system process) : 99 (QS system process) Pulse: 77 (QS system process) LaborFlag: Antepartum (QS system process) Datetime: 08/01/2016 20:00 Monitor Mode: External; Palpation (Samia Sims RN) Frequency (min): 1.5-7 (Samia Sims RN) Quality: Mild (Samia Sims RN) Duration (sec): 80-100 (Samia Sims RN) Resting Tone (Palpate): Relaxed (Samia Sims RN) Monitor Mode: External US (Samia Sims RN) FHR Baseline Rate : 125 (Samia Sims RN) Variability: Moderate 6-25 bpm (Samia Sims RN) Accelerations: 15X15 (Samia Sims RN) Decelerations: None (Samia Sims RN)
--- NOTE | 2016-08-02 08:21 | L&D Progress Notes ---
PROGRESS NOTES Datetime Report Generated by CPN: 08/02/2016 08:21 PROGRESS NOTE Impression: Reassuring Heart Rate; Rupture of Membranes Procedures: Artificial ROM; Sterile Vag Exam Plan: Induction Informed Consent Obtained: Vaginal Delivery Vital Signs : Reviewed; Within Normal Limits Comment: feeling ctx. SVE 3/80/-1 AROM clear with FSE Pitocin @ 4 hours from last dose of cytotec May have epidural prn VAGINAL EXAM Dilatation: 3 Effacement: 70 Station: -1 Contractions: every 2 min MEMBRANES Membranes: Ruptured Amniotic Fluid Color: Clear FETUS A FHR - Baseline: 135 Monitoring: External US Variability: Moderate 6-25bpm Accelerations: 15X15 Decelerations: None FHR Category: Category I Estimated Weight (gm): 3400 SIGNATURE SIGNATURE: [id number] Assignment: Kayy Vasquez MD Signature: with User ID: [email or web address] : with User ID: [email or web address]
[2016-08-02] MEDS ORDERED: LABETALOL HCL 200 MG TABLET ONE (08:36)
[2016-08-02] MEDS: LABETALOL HCL 200 MG TABLET PO SCH (08:51)
[2016-08-02] MEDS ORDERED: INSULIN LISPRO 100 UNIT/ML 3 ML VIAL ONE (09:21)
[2016-08-02] MEDS ORDERED: INSULIN REG, HUMAN 100 UNIT/ML 3 ML VIAL (PYX) ONE (09:21)
[2016-08-02] MEDS: INSULIN LISPRO 100 UNIT/ML 3 ML VIAL SUBCUT SCH (09:24)
[2016-08-02] MEDS ORDERED: INSULIN NPH (ISOPHANE), HUMAN 100 UNIT/ML 3 ML ONE (09:30)
[2016-08-02] MEDS: INSULIN NPH (ISOPHANE), HUMAN 100 UNIT/ML 3 ML SUBCUT SCH (09:33)
[2016-08-02] MEDS ORDERED: OXYTOCIN/NORMAL SALINE 20 UNIT/1,000 ML RTUINJ ONE (10:13)
[2016-08-02] MEDS ORDERED: FENTANYL CITRATE INJ/PF 100 MCG/2 ML AMPUL ONE (10:32)
[2016-08-02] MEDS ORDERED: PHENYLEPHRINE HCL INJ/PF 10 MG/1 ML SDV ONE (10:33)
[2016-08-02] MEDS ORDERED: BUPIVACAINE HCL 0.25 % INJ/PF (2.5 MG/1 ML) 30 ML VIAL ONE (10:33)
[2016-08-02] MEDS ORDERED: FENTANYL/BUPIVACAINE/NS/PF 200 MCG/100 ML RTUINJ EPI ONE (10:33)
[2016-08-02] MEDS ORDERED: EPHEDRINE SULFATE INJ 50 MG/1 ML AMPULE ONE (10:33)
[2016-08-02] MEDS ORDERED: FENTANYL/BUPIVACAINE/NS/PF 100 ML EPI PRN (11:13)
[2016-08-02] MEDS ORDERED: BUPIVACAINE HCL 0.25 % INJ/PF (2.5 MG/1 ML) 30 ML VIAL INFIL ONE (11:13)
[2016-08-02] MEDS ORDERED: BENZOIN/ALOE VERA/STORAX/TOLU TINCTURE 60 ML TP PRN (11:13)
[2016-08-02] MEDS ORDERED: LIDOCAINE 1% INJ-PF (10 MG/ML) 30 ML SDV ONE (11:37)
[2016-08-02] MEDS ORDERED: MISOPROSTOL 0.2 MG TABLET ONE (11:37)
--- NOTE | 2016-08-02 14:21 | L&D Progress Notes ---
PROGRESS NOTES Datetime Report Generated by CPN: 08/02/2016 14:21 PROGRESS NOTE Impression: Normal Progression of Labor Procedures: Intrauterine Pressure Catheter Plan: Induction Vital Signs : Reviewed; Within Normal Limits Comment: more comfortable with epidural variable and early decelerations IUPC placed without difficulty. Continue present mgmt. Anticipate VAGINAL EXAM Dilatation: 4 Effacement: 80 Station: -1 Contractions: 2 MEMBRANES Membranes: Ruptured Amniotic Fluid Color: Clear FETUS A FHR - Baseline: 125 Monitoring: Internal Scalp Electrode Variability: Moderate 6-25bpm Accelerations: 15X15 Decelerations: Variable FHR Category: Category II FETUS C SIGNATURE: [id number] Assignment: Kayy Vasquez MD Signature: with User ID: [email or web address] : with User ID: [email or web address]
[2016-08-02] MEDS ORDERED: DIPH/PERTUSS(ACELL)/TETANUS VAC/PF 0.5 ML SYR (>=10YO) IM PRN (16:36)
[2016-08-02] MEDS ORDERED: DIBUCAINE 1% OINTMENT 28 GM TP PRN (16:36)
[2016-08-02] MEDS ORDERED: ZOLPIDEM TARTRATE 5 MG TABLET PO PRN (16:36)
[2016-08-02] MEDS ORDERED: BENZOCAINE/MENTHOL AEROSOL SPRAY 56 ML TOP PRN (16:36)
[2016-08-02] MEDS ORDERED: ACETAMINOPHEN WITH CODEINE #3 TABLET PO PRN ×2 (16:36)
[2016-08-02] MEDS ORDERED: MEASLES,MUMPS&RUBELLA VACC/PF 0.5 ML VIAL SUBCUT PRN (16:36)
[2016-08-02] MEDS ORDERED: OXYTOCIN/NORMAL SALINE 1,000 ML IV PRN (16:36)
--- NOTE | 2016-08-02 17:55 | Admission Physical ---
Datetime Report Generated by CPN: 08/02/2016 17:55 CURRENT ADMISSION Hx Assessment: The History has been Reviewed and is Current Chief Complaint: Scheduled Induction of Labor Indication for Induction: IUGR; Chronic Hypertension; Maternal Diabetes Admit Plan: Admit to Unit; Initiate Labor Induction Protocol ALLERGIES Medication Allergies: Yes Medication Allergies: ondansetron/Pruritis (08/01/2016) Medication Allergies: No Known Allergies (10/19/2012) Latex: No Latex Allergies Food Allergies: Mustard Environmental Allergies: None OBSTETRICAL HISTORY EDC: 08/08/2016 00:00 : 3 Para: 1 Term: 1 : 0 SAB: 1 IAB: 0 Ectopic: 0 Livin Cesareans: 0 VBACs: 0 Multiple Births: 0 Gestational Diabetes: Yes Rh Sensitization: No Incompetent Cervix: No YOVANA: No Infertility: No ART Treatment: No Uterine Anomaly: No IUGR: No Hx Previous C/S: No Macrosomia: No Hx Loss/Stillborn: No PIH: No Hx : No Placenta Previa/Abruption: Depression/PP Depression: No PTL/PROM: No Post Hemorrhage: No Current Procedures: Ultrasound; NST Obstetrical History Comments: G1- male infant @ 38wks 5lbs 4oz G2-SAB at 5 weeks G3-Current SEE RECORDS Alcohol: Yes Alcohol Frequency: Occasional Advised to Stop: Yes Alcohol Comments: Before Marijuana : No Cocaine: No Other Illicit Drugs: No Cigarettes: Never Smoker. [id number] MEDICAL HISTORY Diabetes: Yes Diabetes Type: Gestational Diabetes Blood Transfusion: No Pulmonary Disease (Asthma, TB): No Breast Disease: No Hypertension: Yes [employer] Surgery: No Heart Disease: No Hosp/Surgery: Yes Autoimmune Disorder: No Anesthetic Complications: No Kidney Disease: No Abnormal Pap Smear: No Neuro/Epilepsy: No Psychiatric Disorders: No Other Medical Diseases: No Hepatitis/Liver Disease: No Significant Family History: No Varicosities/Phlebitis: No Trauma/Violence : No Thyroid Dysfunction: Yes Medical History Comments: 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 htn: CHTN on labetalol Pt had partial thyroidectomy for thyroid cancer (December 2014), on synthroid INFECTIOUS HISTORY Gonorrhea: No Genital Herpes: No Chlamydia: No Tuberculosis: No Syphilis: No Hepatitis: No HIV/AIDS Exposure: No Rash or Viral Illness: No HPV: No PHYSICAL EXAM General: Normal HEENT: Normal Neurologic: Normal Thyroid: Deferred Heart: Normal Lungs: Normal Breast: Normal Back: Normal Abdomen: Normal Genitourinary Exam: Normal Extremities: Normal DTRs: Normal Pelvic Type: Adequate Physical Exam Comments: pelvis proven to 5 lbs 4 oz Vital Signs: Reviewed VAGINAL EXAM Dilatation: 4 Dilatation: 3 Effacement: 80 Effacement: 70 Station: -1 Station: -1 Contraction Comments: 2 Contraction Comments: every 2 min MEMBRANES Membranes: Ruptured Membranes: Intact Amniotic Fluid Color: Clear FETUS A EGA: 39.1 Monitoring: External US FHR- Baseline: 130 Variability: Moderate 6-25bpm Accelerations: 15X15 Decelerations: None FHR Category: Category I Estimated Weight (gm): 3000 Presentation: Vertex Admit Comment: Pt Admitted for iol GDM on insulin, poor compliance. current Humulin N 04/19, Novolog . Co managed with mfm IUGR 9% Chtn on labetalol hypothyroid Plan for cytotec for cervical ripening Pit when favorable. GBS neg see and [facility]fm records. PLANS FOR LABOR AND DELIVERY Labor and Delivery: None Pain Management: Epidural Feeding Preference: Formula Benefit of Breast Feed Discussed: Yes Circumcision: N/A INFORMED CONSENT Informed Consent Obtained: Vaginal Delivery Assignment: Kayy Vasquez MD Signature: with User ID: [email or web address] : with User ID: [email or web address]
--- NOTE | 2016-08-02 19:01 | L&D Flow Sheet ---
LD Flowsheet Datetime Report Generated by CPN: 08/02/2016 19:00 Datetime: 08/02/2016 17:30 Stage of : Recovery (Yeny Shaye, RN) Pain Scale: 0 (Yeny Shaye, RN) Pain Presence: None/Denies (Yeny Shaye, RN) Pain Type: N/A (Yeny Shaye, RN) Datetime: 08/02/2016 17:15 Stage of : Recovery (Yeny Shaye, RN) Pain Scale: 0 (Yeny Shaye, RN) Pain Presence: None/Denies (Yeny Shaye, RN) Pain Type: N/A (Yeny Shaye, RN) Datetime: 08/02/2016 17:04 NBP Sys/Tania/Mean (mmHg): 112 (QS system process) : 65 (QS system process) : 84 (QS system process) Pulse: 72 (QS system process) Datetime: 08/02/2016 17:00 Stage of : Recovery (Yeny Shaye, RN) Pain Scale: 0 (Yeny Shaye, RN) Pain Presence: None/Denies (Yeny Shaye, RN) Pain Type: N/A (Yeny Shaye, RN) Datetime: 08/02/2016 16:49 NBP Sys/Tania/Mean (mmHg): 118 (QS system process) : 69 (QS system process) : 88 (QS system process) Pulse: 68 (QS system process) Datetime: 08/02/2016 16:45 Stage of : Recovery (Yeny Shaye, RN) Pain Scale: 0 (Yeny Shaye, RN) Pain Presence: None/Denies (Yeny Shaye, RN) Pain Type: N/A (Yeny Shaye, RN) Datetime: 08/02/2016 16:34 NBP Sys/Tania/Mean (mmHg): 126 (QS system process) : 68 (QS system process) : 93 (QS system process) Pulse: 68 (QS system process) Datetime: 08/02/2016 16:30 Stage of : Recovery (Yeny Shaye, RN) Pain Scale: 0 (Yeny Shaye, RN) Pain Presence: None/Denies (Yeny Shaye, RN) Pain Type: N/A (Yeny Shaye, RN) Datetime: 08/02/2016 16:19 NBP Sys/Tania/Mean (mmHg): 105 (QS system process) : 75 (QS system process) : 86 (QS system process) Pulse: 80 (QS system process) Datetime: 08/02/2016 16:15 Stage of : Recovery (Yeny Shaye, RN) Pain Scale: 0 (Yeny Shaye, RN) Pain Presence: None/Denies (Yeny Shaye, RN) Pain Type: N/A (Yeny Shaye, RN) Datetime: 08/02/2016 16:04 NBP Sys/Tania/Mean (mmHg): 96 (QS system process) : 64 (QS system process) : 75 (QS system process) Pulse: 86 (QS system process) Datetime: 08/02/2016 16:00 Stage of : Recovery (Yeny Shaye, RN) Pain Scale: 0 (Yeny Shaye, RN) Pain Presence: None/Denies (Yeny Shaye, RN) Pain Type: N/A (Yeny Shaye, RN) Datetime: 08/02/2016 15:49 NBP Sys/Tania/Mean (mmHg): 93 (QS system process) : 63 (QS system process) : 73 (QS system process) Pulse: 82 (QS system process) Datetime: 08/02/2016 15:45 Stage of : Recovery (Yeny Shaye, RN) Pain Scale: 0 (Yeny Shaye, RN) Pain Presence: None/Denies (Yeny Shaye, RN) Pain Type: N/A (Yeny Shaye, RN) Datetime: 08/02/2016 15:34 NBP Sys/Tania/Mean (mmHg): 138 (QS system process) : 63 (QS system process) : 91 (QS system process) Pulse: 100 (QS system process) LaborFlag: Antepartum (QS system process) Datetime: 08/02/2016 15:30 Monitor Mode: Internal (Yeny Shaye, RN) Frequency (min): 2 (Yeny Shaye, RN) Quality: Moderate (Yeny Shaye, RN) Duration (sec): 60-80 (Yeny Shaye, RN) Resting Tone (Palpate): Relaxed (Yeny Shaye, RN) Monitor Mode: Internal Scalp Electrode (Yeny Shaye, RN) FHR Baseline Rate : 110 (Yeny Shaye, RN) Variability: Moderate 6-25 bpm (Yeny Shaye, RN) Accelerations: None (Yeny Shaye, RN) Decelerations: Early; Variable (Yeny Shaye, RN) Datetime: 08/02/2016 15:28 Communication Comments: H. Chino, CNM at bedside for delivery (Yeny Shaye, RN) Datetime: 08/02/2016 15:23 Dilatation (cm): 10.0 (Yeny Shaye, RN) Effacement (%): 100 (Yeny Cr, RN) Station: 0 (Yeny Cr, RN) Exam by: Connor Cr RN (Yeny Cr RN) Communication Comments: RN at bedside to remain until delivery (Yeny Cr RN) Communication Comments: Connor Magana CNM called for delivery (Yeny Cr RN) Datetime: 08/02/2016 15:19 NBP Sys/Tania/Mean (mmHg): 134 (QS system process) : 88 (QS system process) : 106 (QS system process) Pulse: 75 (QS system process) LaborFlag: Antepartum (QS system process) Datetime: 08/02/2016 15:15 Monitor Mode: Internal (Yeny Shaye, RN) Frequency (min): 2 (Yeny Shaye, RN) Quality: Moderate (Yeny Shaye, RN) Duration (sec): 60-80 (Yeny Shaye, RN) Resting Tone (Palpate): Relaxed (Yeny Shaye, RN) Monitor Mode: External US (Yeny Shaye, RN) FHR Baseline Rate : 125 (Yeny Shaye, RN) Variability: Moderate 6-25 bpm (Yeny Shaye, RN) Accelerations: None (Yeny Shaye, RN) Decelerations: Variable (Yeny Shaye, RN) Datetime: 08/02/2016 15:10 Contraction Comments: MVUs 185 (Yeny Shaye, RN) Datetime: 08/02/2016 15:05 NBP Sys/Tania/Mean (mmHg): 120 (QS system process) : 78 (QS system process) : 94 (QS system process) Pulse: 70 (QS system process) LaborFlag: Antepartum (QS system process) Datetime: 08/02/2016 15:00 Monitor Mode: Internal (Yeny Shaye, RN) Frequency (min): 2 (Yeny Shaye, RN) Quality: Moderate (Yeny Shaye, RN) Duration (sec): 60-80 (Yeny Shaye, RN) Resting Tone (Palpate): Relaxed (Yeny Shaye, RN) Monitor Mode: Internal Scalp Electrode (Yeny Shaye, RN) FHR Baseline Rate : 130 (Yeny Shaye, RN) Variability: Moderate 6-25 bpm (Yeny Shaye, RN) Accelerations: None (Yeny Shaye, RN) Decelerations: Early (Yeny Shaye, RN) Datetime: 08/02/2016 14:50 Dilatation (cm): 8.0 (Yeny Shaye, RN) Effacement (%): 80 (Yeny Shaye, RN) Station: 0 (Yeny Shaye, RN) Exam by: Connor Magana CNM (Yeny Shaye, RN) Datetime: 08/02/2016 14:49 NBP Sys/Tania/Mean (mmHg): 111 (QS system process) : 61 (QS system process) : 80 (QS system process) Pulse: 69 (QS system process) LaborFlag: Antepartum (QS system process) Datetime: 08/02/2016 14:45 Monitor Mode: Internal (Yeny Shaye, RN) Frequency (min): 2 (Yeny Shaye, RN) Quality: Moderate (Yeny Shaye, RN) Duration (sec): 60-80 (Yeny Shaye, RN) Resting Tone (Palpate): Relaxed (Yeny Shaye, RN) Monitor Mode: External US (Yeny Shaye, RN) FHR Baseline Rate : 130 (Yeny Shaye, RN) Variability: Moderate 6-25 bpm (Yeny Shaye, RN) Accelerations: None (Yeny Shaye, RN) Decelerations: Early (Yeny Shaye, RN) Datetime: 08/02/2016 14:35 NBP Sys/Tania/Mean (mmHg): 106 (QS system process) : 56 (QS system process) : 75 (QS system process) Pulse: 63 (QS system process) LaborFlag: Antepartum (QS system process) Datetime: 08/02/2016 14:30 Monitor Mode: Internal (Yeny Shaye, RN) Frequency (min): 2 (Yeny Shaye, RN) Quality: Moderate (Yeny Shaye, RN) Duration (sec): 60-80 (Yeny Shaye, RN) Resting Tone (Palpate): Relaxed (Yeny Shaye, RN) Monitor Mode: Internal Scalp Electrode (Yeny Shaye, RN) FHR Baseline Rate : 130 (Yeny Shaye, RN) Variability: Moderate 6-25 bpm (Yeny Shaye, RN) Accelerations: None (Yeny Shaye, RN) Decelerations: Early; Variable (Yeny Shaye, RN) Datetime: 08/02/2016 14:19 NBP Sys/Tania/Mean (mmHg): 129 (QS system process) : 82 (QS system process) : 99 (QS system process) Pulse: 75 (QS system process) LaborFlag: Antepartum (QS system process) Datetime: 08/02/2016 14:15 Monitor Mode: Internal (Yeny Shaye, RN) Frequency (min): 1-2 (Yeny Shaye, RN) Quality: Moderate (Yeny Shaye, RN) Duration (sec): 60-80 (Yeny Shaye, RN) Resting Tone (Palpate): Relaxed (Yeny Shaye, RN) Monitor Mode: Internal Scalp Electrode (Yeny Shaye, RN) FHR Baseline Rate : 135 (Yeny Shaye, RN) Variability: Moderate 6-25 bpm (Yeny Shaye, RN) Accelerations: None (Yeny Shaye, RN) Decelerations: Early (Yeny Shaye, RN) Datetime: 08/02/2016 14:09 Contraction Comments: MVU's 200 (Alexandra Love, RN) Datetime: 08/02/2016 14:08 Pitocin (milliunit): Pitocin Decreased to (milliunits) @ 8 (Yeny Shaye, RN) Datetime: 08/02/2016 14:04 NBP Sys/Tania/Mean (mmHg): 120 (QS system process) : 82 (QS system process) : 96 (QS system process) Pulse: 72 (QS system process) LaborFlag: Antepartum (QS system process) Datetime: 08/02/2016 14:00 Monitor Mode: Internal (Yeny Shaye, RN) Frequency (min): 1-2 (Yeny Shaye, RN) Quality: Moderate (Yeny Shaye, RN) Duration (sec): 60-80 (Yeny Shaye, RN) Resting Tone (Palpate): Relaxed (Yeny Shaye, RN) Monitor Mode: Internal Scalp Electrode (Yeny Shaye, RN) FHR Baseline Rate : 130 (Yeny Shaye, RN) Variability: Moderate 6-25 bpm (Yeny Shaye, RN) Accelerations: None (Yeny Shaye, RN) Decelerations: Early (Yeny Shaye, RN) Datetime: 08/02/2016 13:49 NBP Sys/Tania/Mean (mmHg): 125 (QS system process) : 91 (QS system process) : 104 (QS system process) Pulse: 76 (QS system process) LaborFlag: Antepartum (QS system process) Datetime: 08/02/2016 13:45 Monitor Mode: External; Internal (Yeny Shaye, RN) Frequency (min): 2-5 (Yeny Shaye, RN) Quality: Moderate (Yeny Shaye, RN) Duration (sec): 60-80 (Yeny Shaye, RN) Resting Tone (Palpate): Relaxed (Yeny Shaye, RN) Monitor Mode: Internal Scalp Electrode (Yeny Shaye, RN) FHR Baseline Rate : 130 (Yeny Shaye, RN) Variability: Moderate 6-25 bpm (Yeny Shaye, RN) Accelerations: None (Yeny Shaye, RN) Decelerations: Early; Variable (Yeny Shaye, RN) Datetime: 08/02/2016 13:42 Monitor Interventions for UA: IUPC Inserted (Yeny Shaye, RN) Datetime: 08/02/2016 13:39 Communication Comments: H. Chino at bedside (Yeny Shaye, RN) Datetime: 08/02/2016 13:34 NBP Sys/Tania/Mean (mmHg): 120 (QS system process) : 88 (QS system process) : 98 (QS system process) Pulse: 70 (QS system process) LaborFlag: Antepartum (QS system process) Datetime: 08/02/2016 13:30 Monitor Mode: External (Yeny Shaye, RN) Frequency (min): 1-5 (Yeny Shaye, RN) Quality: Moderate (Yeny Shaye, RN) Duration (sec): 60-80 (Yeny Shaye, RN) Resting Tone (Palpate): Relaxed (Yeny Shaye, RN) Monitor Mode: Internal Scalp Electrode (Yeny Shaye, RN) FHR Baseline Rate : 135 (Yeny Shaye, RN) Variability: Moderate 6-25 bpm (Yeny Shaye, RN) Accelerations: None (Yeny Shaye, RN) Decelerations: Early (Yeny Shaye, RN) Pitocin (milliunit): Pitocin Increased to (milliunits) @ 16 (Yeny Shaye, RN) Datetime: 08/02/2016 13:19 NBP Sys/Tania/Mean (mmHg): 132 (QS system process) : 84 (QS system process) : 103 (QS system process) Pulse: 71 (QS system process) LaborFlag: Antepartum (QS system process) Datetime: 08/02/2016 13:15 Monitor Mode: External; Palpation (Yeny Shaye, RN) Frequency (min): 2-6 (Yeny Shaye, RN) Quality: Moderate (Yeny Shaye, RN) Duration (sec): 60-80 (Yeny Shaye, RN) Resting Tone (Palpate): Relaxed (Yeny Shaye, RN) Monitor Mode: Internal Scalp Electrode (Yeny Shaye, RN) FHR Baseline Rate : 135 (Yeny Shaye, RN) Variability: Moderate 6-25 bpm (Yeny Shaye, RN) Accelerations: None (Yeny Shaye, RN) Decelerations: Early (Yeny Shaye, RN) Pitocin (milliunit): Pitocin Increased to (milliunits) @ 14 (Yeny Shaye, RN) Datetime: 08/02/2016 13:07 Bedside Blood Glucose: 85 (QS system process) LaborFlag: Antepartum (QS system process) Datetime: 08/02/2016 13:05 NBP Sys/Tania/Mean (mmHg): 122 (QS system process) : 87 (QS system process) : 101 (QS system process) Pulse: 74 (QS system process) LaborFlag: Antepartum (QS system process) Datetime: 08/02/2016 13:00 Monitor Mode: External; Palpation (Yeny Shaye, RN) Frequency (min): 2-4 (Yeny Shaye, RN) Quality: Moderate (Yeny Shaye, RN) Duration (sec): 60-80 (Yeny Shaye, RN) Resting Tone (Palpate): Relaxed (Yeny Shaye, RN) Monitor Mode: Internal Scalp Electrode (Yeny Shaye, RN) FHR Baseline Rate : 135 (Yeny Shaye, RN) Variability: Moderate 6-25 bpm (Yeny Shaye, RN) Accelerations: 10X10 (Yeny Shaye, RN) Decelerations: Early; Variable (Yeny Shaye, RN) Pitocin (milliunit): Pitocin Increased to (milliunits) @ 12 (Yeny Shaye, RN) Datetime: 08/02/2016 12:50 NBP Sys/Tania/Mean (mmHg): 118 (QS system process) : 78 (QS system process) : 93 (QS system process) Pulse: 68 (QS system process) LaborFlag: Antepartum (QS system process) Datetime: 08/02/2016 12:45 Monitor Mode: External; Palpation (Yeny Shaye, RN) Frequency (min): 2-3 (Yeny Shaye, RN) Quality: Moderate (Yeny Shaye, RN) Duration (sec): 60-80 (Yeny Shaye, RN) Resting Tone (Palpate): Relaxed (Yeny Shaye, RN) Monitor Mode: Internal Scalp Electrode (Yeny Shaye, RN) FHR Baseline Rate : 135 (Yeny Shaye, RN) Variability: Moderate 6-25 bpm (Yeny Shaye, RN) Accelerations: 10X10 (Yeny Shaye, RN) Decelerations: Early (Yeny Shaye, RN) Pitocin (milliunit): Pitocin Increased to (milliunits) @ 10 (Yeny Shaye, RN) Datetime: 08/02/2016 12:34 NBP Sys/Tania/Mean (mmHg): 117 (QS system process) : 70 (QS system process) : 89 (QS system process) Pulse: 78 (QS system process) LaborFlag: Antepartum (QS system process) Datetime: 08/02/2016 12:31 Temperature (F): 98.0 (Yeny Shaye, RN) Temperature (C): 36.7 (QS system process) LaborFlag: Antepartum (QS system process) Datetime: 08/02/2016 12:30 Monitor Mode: External (Yeny Shaye, RN) Frequency (min): 2 (Yeny Shaye, RN) Quality: Moderate (Yeny Shaye, RN) Duration (sec): 60-80 (Yeny Shaye, RN) Resting Tone (Palpate): Relaxed (Yeny Shaye, RN) Monitor Mode: Internal Scalp Electrode (Yeny Shaye, RN) FHR Baseline Rate : 135 (Yeny Shaye, RN) Variability: Moderate 6-25 bpm (Yeny Shaey, RN) Accelerations: None (Yeny Shaye, RN) Decelerations: Early (Yeny Shaye, RN) Pitocin (milliunit): Pitocin Increased to (milliunits) @ 8 (Yeny Shaye, RN) Datetime: 08/02/2016 12:19 NBP Sys/Tania/Mean (mmHg): 103 (QS system process) : 65 (QS system process) : 79 (QS system process) Pulse: 62 (QS system process) LaborFlag: Antepartum (QS system process) Datetime: 08/02/2016 12:15 Monitor Mode: External (Yeny Shaye, RN) Frequency (min): 1-7 (Yeny Shaye, RN) Quality: Mild/Moderate (Yeny Shaye, RN) Duration (sec): 60-80 (Yeny Shaye, RN) Resting Tone (Palpate): Relaxed (Yeny Shaye, RN) Contraction Comments: couplets (Yeny Shaye, RN) Monitor Mode: External US (Yney Shaye, RN) FHR Baseline Rate : 130 (Yeny Shaye, RN) Variability: Moderate 6-25 bpm (Yeny Shaye, RN) Accelerations: None (Yeny Shaye, RN) Decelerations: Early (Yeny Shaye, RN) Datetime: 08/02/2016 12:04 NBP Sys/Tania/Mean (mmHg): 104 (QS system process) : 70 (QS system process) : 80 (QS system process) Pulse: 82 (QS system process) LaborFlag: Antepartum (QS system process) Datetime: 08/02/2016 12:02 NBP Sys/Tania/Mean (mmHg): 116 (QS system process) : 76 (QS system process) : 89 (QS system process) Pulse: 74 (QS system process) LaborFlag: Antepartum (QS system process) Datetime: 08/02/2016 12:01 NBP Sys/Tania/Mean (mmHg): 118 (QS system process) : 72 (QS system process) : 91 (QS system process) Pulse: 76 (QS system process) LaborFlag: Antepartum (QS system process) Datetime: 08/02/2016 12:00 NBP Sys/Tania/Mean (mmHg): 121 (QS system process) : 68 (QS system process) : 90 (QS system process) Pulse: 78 (QS system process) Monitor Mode: External; Palpation (Yeny Shaye, RN) Frequency (min): 2-3 (Yeny Shaye, RN) Quality: Mild/Moderate (Yeny Shaye, RN) Duration (sec): 60-80 (Yeny Shaye, RN) Resting Tone (Palpate): Relaxed (Yeny Shaye, RN) Monitor Mode: External US (Yeny Shaye, RN) FHR Baseline Rate : 135 (Yeny Shaye, RN) Variability: Moderate 6-25 bpm (Yeny Shaye, RN) Accelerations: None (Yeny Shaye, RN) Decelerations: Early; Variable (Yeny Shaye, RN) LaborFlag: Antepartum (QS system process) Datetime: 08/02/2016 11:59 NBP Sys/Tania/Mean (mmHg): 117 (QS system process) : 69 (QS system process) : 89 (QS system process) Pulse: 69 (QS system process) LaborFlag: Antepartum (QS system process) Datetime: 08/02/2016 11:58 NBP Sys/Tania/Mean (mmHg): 117 (QS system process) : 69 (QS system process) : 88 (QS system process) Pulse: 69 (QS system process) LaborFlag: Antepartum (QS system process) Datetime: 08/02/2016 11:57 NBP Sys/Tania/Mean (mmHg): 124 (QS system process) : 66 (QS system process) : 88 (QS system process) Pulse: 74 (QS system process) LaborFlag: Antepartum (QS system process) Datetime: 08/02/2016 11:56 NBP Sys/Tania/Mean (mmHg): 119 (QS system process) : 76 (QS system process) : 91 (QS system process) Pulse: 78 (QS system process) LaborFlag: Antepartum (QS system process) Datetime: 08/02/2016 11:55 NBP Sys/Tania/Mean (mmHg): 118 (QS system process) : 72 (QS system process) : 91 (QS system process) Pulse: 73 (QS system process) LaborFlag: Antepartum (QS system process) Datetime: 08/02/2016 11:54 NBP Sys/Tania/Mean (mmHg): 117 (QS system process) : 70 (QS system process) : 89 (QS system process) Pulse: 79 (QS system process) LaborFlag: Antepartum (QS system process) Datetime: 08/02/2016 11:53 NBP Sys/Tania/Mean (mmHg): 126 (QS system process) : 82 (QS system process) : 99 (QS system process) Pulse: 89 (QS system process) Pulse: 82 (QS system process) SpO2 (%): 92 (QS system process) LaborFlag: Antepartum (QS system process) Datetime: 08/02/2016 11:52 NBP Sys/Tania/Mean (mmHg): 136 (QS system process) : 89 (QS system process) : 107 (QS system process) Pulse: 81 (QS system process) LaborFlag: Antepartum (QS system process) Datetime: 08/02/2016 11:51 NBP Sys/Tania/Mean (mmHg): 131 (QS system process) : 82 (QS system process) : 101 (QS system process) Pulse: 70 (QS system process) LaborFlag: Antepartum (QS system process) Datetime: 08/02/2016 11:50 NBP Sys/Tania/Mean (mmHg): 130 (QS system process) : 79 (QS system process) : 97 (QS system process) Pulse: 72 (QS system process) LaborFlag: Antepartum (QS system process) Datetime: 08/02/2016 11:49 Pulse: 79 (QS system process) SpO2 (%): 98 (QS system process) LaborFlag: Antepartum (QS system process) Datetime: 08/02/2016 11:48 Pulse: 83 (QS system process) SpO2 (%): 93 (QS system process) LaborFlag: Antepartum (QS system process) Datetime: 08/02/2016 11:45 Monitor Mode: External (Yeny Shaye, RN) Frequency (min): 2 (Yeny Shaye, RN) Quality: Mild/Moderate (Yeny Shaye, RN) Duration (sec): 60-80 (Yeny Shaye, RN) Resting Tone (Palpate): Relaxed (Yeny Shaye, RN) Monitor Mode: External US (Yeny Shaye, RN) FHR Baseline Rate : 140 (Yeny Shaye, RN) Variability: Moderate 6-25 bpm (Yeny Shaye, RN) Accelerations: None (Eyny Shaye, RN) Decelerations: Early (Yeny Shaye, RN) Pitocin (milliunit): Pitocin Increased to (milliunits) @ 6 (Yeny Shaye, RN) Datetime: 08/02/2016 11:44 Pulse: 77 (QS system process) SpO2 (%): 99 (QS system process) Procedure Verify: Correct Patient Identity; Correct Side and Site are Marked; Accurate Procedure Consent Form; Agreement on Procedure to be Done; Correct Patient Position (Yeny Shaye, RN) LaborFlag: Antepartum (QS system process) Datetime: 08/02/2016 11:43 Anesthesia Comments: Dr. [place] at bedside (Yeny Shaye, RN) Datetime: 08/02/2016 11:40 NBP Sys/Tania/Mean (mmHg): 126 (QS system process) : 73 (QS system process) : 94 (QS system process) Pulse: 69 (QS system process) LaborFlag: Antepartum (QS system process) Datetime: 08/02/2016 11:39 Pulse: 66 (QS system process) SpO2 (%): 99 (QS system process) Epidural Positioning: Sitting (Yeny Shaye, RN) LaborFlag: Antepartum (QS system process) Datetime: 08/02/2016 11:33 I/O Interventions: Up to BR (Yeny Shaye, RN) Datetime: 08/02/2016 11:30 Monitor Mode: External; Palpation (Yeny Shaye, RN) Frequency (min): 2-3 (Yeny Shaye, RN) Quality: Mild/Moderate (Yeny Shaye, RN) Duration (sec): 60-80 (Yeny Shaye, RN) Resting Tone (Palpate): Relaxed (Yeny Shaye, RN) Monitor Mode: External US (Yeny Shaye, RN) FHR Baseline Rate : 140 (Yeny Shaye, RN) Variability: Moderate 6-25 bpm (Yeny Shaye, RN) Accelerations: None (Eyny Hsaye, RN) Decelerations: Early (Yeny Shaye, RN) Datetime: 08/02/2016 11:27 Bedside Blood Glucose: 100 (QS system process) LaborFlag: Antepartum (QS system process) Datetime: 08/02/2016 11:15 Monitor Mode: External; Palpation (Yeny Shaye, RN) Frequency (min): 2-3 (Yeny Shaye, RN) Quality: Moderate (Yeny Shaye, RN) Duration (sec): 60-80 (Yeny Shaye, RN) Resting Tone (Palpate): Relaxed (Yeny Shaye, RN) Monitor Mode: External US (Yeny Shaye, RN) FHR Baseline Rate : 135 (Yeny Shaye, RN) Variability: Moderate 6-25 bpm (Yeny Shaye, RN) Accelerations: None (Yeny Shaye, RN) Decelerations: Early (Yeny Shaye, RN) Datetime: 08/02/2016 11:10 NBP Sys/Tania/Mean (mmHg): 112 (QS system process) : 65 (QS system process) : 84 (QS system process) Pulse: 77 (QS system process) LaborFlag: Antepartum (QS system process) Datetime: 08/02/2016 11:03 Pitocin (milliunit): Pitocin Increased to (milliunits) @ 4 (Yeny Cr, RN) Datetime: 08/02/2016 11:00 Monitor Mode: External; Palpation (Alexandra Love RN) Frequency (min): 3-4 (Alexandra Loev RN) Quality: Mild/Moderate (Alexandra Love RN) Duration (sec): 60-80 (Alexandra Love RN) Resting Tone (Palpate): Relaxed (Alexandra Love RN) Monitor Mode: External US (Alexandra Love RN) FHR Baseline Rate : 135 (Alexandra Love, RN) Variability: Moderate 6-25 bpm (Alexandra Love, RN) Accelerations: 15X15 (Alexandra Love, RN) Decelerations: None (Alexandra Love, RN) Datetime: 08/02/2016 10:45 Monitor Mode: External; Palpation (Alexandra Love, RN) Frequency (min): 3-5 (Alexandra Love, RN) Quality: Mild/Moderate (Alexandra Love, RN) Duration (sec): 60-80 (Alexandra Love, RN) Resting Tone (Palpate): Relaxed (Alexandra Love, RN) Monitor Mode: External US (Alexandra Love, RN) FHR Baseline Rate : 135 (Alexandra Love, RN) Variability: Moderate 6-25 bpm (Alexandra Love, RN) Accelerations: 15X15 (Alexandra Love, RN) Decelerations: Variable (Alexandra Love, RN) Datetime: 08/02/2016 10:40 NBP Sys/Tania/Mean (mmHg): 133 (QS system process) : 83 (QS system process) : 103 (QS system process) Pulse: 76 (QS system process) LaborFlag: Antepartum (QS system process) Datetime: 08/02/2016 10:30 Monitor Mode: External; Palpation (Alexandra Love, RN) Frequency (min): 5-9 (Alexandra Love, RN) Quality: Mild/Moderate (Alexandra Love, RN) Duration (sec): 60-80 (Alexandra Ivan, RN) Resting Tone (Palpate): Relaxed (Alexandra Love, RN) Monitor Mode: External US (Alexandra Lomelion, RN) FHR Baseline Rate : 140 (Alexandra Love, RN) Variability: Minimal - Undetectable to <=5 bpm (Alexandra Love, RN) Accelerations: 10X10 (Alexandra Love, RN) Decelerations: None (Alexandra Love, RN) Datetime: 08/02/2016 10:20 Pitocin (milliunit): Pitocin Started (milliunits) @ 2 (Yenyquang Lunas, RN) Datetime: 08/02/2016 10:15 Monitor Mode: External; Palpation (Alexandra Love, RN) Frequency (min): 4-5 (Alexandra Love, RN) Quality: Mild/Moderate (Alexandra Love, RN) Duration (sec): 60-80 (Alexandra Love, RN) Resting Tone (Palpate): Relaxed (Alexandra Love, RN) Monitor Mode: External US (Alexandra Love, RN) FHR Baseline Rate : 135 (Alexandra Love, RN) Variability: Moderate 6-25 bpm (Alexandra Love, RN) Accelerations: 10X10 (Alexandra Love, RN) Decelerations: Variable (Alexandra Love, RN) Datetime: 08/02/2016 10:10 NBP Sys/Tania/Mean (mmHg): 121 (QS system process) : 67 (QS system process) : 89 (QS system process) Pulse: 74 (QS system process) LaborFlag: Antepartum (QS system process) Datetime: 08/02/2016 10:01 NBP Sys/Tania/Mean (mmHg): 133 (QS system process) : 85 (QS system process) : 103 (QS system process) Pulse: 82 (QS system process) LaborFlag: Antepartum (QS system process) Datetime: 08/02/2016 10:00 Monitor Mode: External; Palpation (Alexandra Love, RN) Frequency (min): 3-5 (Alexandra Love, RN) Quality: Mild/Moderate (Alexandra Love, RN) Duration (sec): 60-80 (Alexandra Ivan, RN) Resting Tone (Palpate): Relaxed (Alexandra Love, RN) Monitor Mode: External US (Alexandra Love, RN) FHR Baseline Rate : 135 (Alexandra Lomelion, RN) Variability: Moderate 6-25 bpm (Alexandra Love, RN) Accelerations: 10X10 (Alexandra Love, RN) Decelerations: Variable (Alexandra Love, RN) Datetime: 08/02/2016 09:45 Monitor Mode: External; Palpation (Alexandra Love, RN) Frequency (min): 4-4.5 (Alexandra Love, RN) Quality: Mild (Alexandra Love, RN) Duration (sec): 60-80 (Alexandra Love, RN) Resting Tone (Palpate): Relaxed (Alexandra Love, RN) Monitor Mode: External US (Alexandra Love, RN) FHR Baseline Rate : 140 (Alexandra Love, RN) Variability: Minimal - Undetectable to <=5 bpm (Alexandra Love, RN) Accelerations: None (Alexandra Love, RN) Decelerations: Early (Alexandra Love, RN) Datetime: 08/02/2016 09:40 NBP Sys/Tania/Mean (mmHg): 113 (QS system process) : 67 (QS system process) : 85 (QS system process) Pulse: 75 (QS system process) LaborFlag: Antepartum (QS system process) Datetime: 08/02/2016 09:33 Medication Comments: Humulin 7 units SubQ (Yeny Shaye, RN) Datetime: 08/02/2016 09:30 Monitor Mode: External (Yeny Shaye, RN) Frequency (min): 1-5 (Yeny Shaye, RN) Quality: Mild/Moderate (Yeny Shaye, RN) Duration (sec): 60-80 (Yeny Shaye, RN) Resting Tone (Palpate): Relaxed (Yeny Shaye, RN) Monitor Mode: External US (Yeny Shaye, RN) FHR Baseline Rate : 140 (Yeny Shaye, RN) Variability: Moderate 6-25 bpm (Yeny Shaye, RN) Accelerations: 15X15 (Yeny Shaye, RN) Decelerations: Early (Yeny Shaye, RN) Datetime: 08/02/2016 09:24 Medication Comments: Humalog 7 units subQ (Yeny Shaye, RN) Datetime: 08/02/2016 09:16 Bedside Blood Glucose: 164 H (QS system process) LaborFlag: Antepartum (QS system process) Datetime: 08/02/2016 09:10 NBP Sys/Tania/Mean (mmHg): 106 (QS system process) : 63 (QS system process) : 80 (QS system process) Pulse: 67 (QS system process) LaborFlag: Antepartum (QS system process) Datetime: 08/02/2016 08:59 Monitor Mode: External; Palpation (Yeny Shaye, RN) Frequency (min): 1.5-3 (Yeny Shaye, RN) Quality: Mild/Moderate (Yeny Shaye, RN) Duration (sec): 60-80 (Yeny Shaye, RN) Resting Tone (Palpate): Relaxed (Yeny Shaey, RN) Monitor Mode: External US (Yeny Shaye, RN) FHR Baseline Rate : 135 (Yeny Shaye, RN) Variability: Moderate 6-25 bpm (Yeny Shaye, RN) Accelerations: 15X15 (Yeny Shaye, RN) Decelerations: None (Yeny Shaye, RN) Datetime: 08/02/2016 08:58 Medication Comments: Synthroid 0.05mg PO (Yeny Shaye, RN) Datetime: 08/02/2016 08:50 NBP Sys/Tania/Mean (mmHg): 134 (QS system process) : 86 (QS system process) : 105 (QS system process) Pulse: 82 (QS system process) Magnesium/Antihypertensives: Labetolol PO (mg) @ 200mg (Yeny Shyae, RN) LaborFlag: Antepartum (QS system process) Datetime: 08/02/2016 08:40 NBP Sys/Tania/Mean (mmHg): 129 (QS system process) : 80 (QS system process) : 99 (QS system process) Pulse: 86 (QS system process) LaborFlag: Antepartum (QS system process) Datetime: 08/02/2016 08:30 Monitor Mode: External; Palpation (Alexandra Love RN) Frequency (min): 1.5-4 (Alexandra Love RN) Quality: Mild/Moderate (Alexandra Love RN) Duration (sec): 60-80 (Alexandra Love RN) Resting Tone (Palpate): Relaxed (Alexandra Love RN) Monitor Mode: External US (Alexandra Love RN) FHR Baseline Rate : 135 (Alexandra Love RN) Variability: Moderate 6-25 bpm (Alexandra Love RN) Accelerations: 15X15 (Alexandra Love RN) Decelerations: Variable (Alexandra Love RN) Datetime: 08/02/2016 08:23 Patient Position/Activity: Left Lateral; Peanut Ball (Yeny Cr, RN) Datetime: 08/02/2016 08:12 Dilatation (cm): 3.0 (Yeny Cr RN) Effacement (%): 80 (Yeny Cr RN) Station: -1 (Yeny Cr RN) Exam by: Connor Magana CNM (Yeny Cr RN) Membranes Ruptured Date/Time: 08/02/2016 08:12 (Alexandra Love RN) Membranes Rupture Method: Artificial (Yeny Cr, ALANNA) Amniotic Fluid Color: Clear (Yeny Cr, ALANNA) Amniotic Fluid Amount: Moderate (Yeny Cr, ALANNA) Datetime: 08/02/2016 08:10 NBP Sys/Tania/Mean (mmHg): 118 (QS system process) : 79 (QS system process) : 95 (QS system process) Pulse: 68 (QS system process) LaborFlag: Antepartum (QS system process) Datetime: 08/02/2016 07:58 Monitor Mode: External; Palpation (Yeny Shaye, RN) Frequency (min): 2-3 (Yeny Shaye, RN) Quality: Mild/Moderate (Yeny Shaye, RN) Duration (sec): 60-80 (Yeny Shaye, RN) Resting Tone (Palpate): Relaxed (Yeny Shaye, RN) Monitor Mode: External US (Yeny Shaye, RN) FHR Baseline Rate : 135 (Yeny Shaye, RN) Variability: Moderate 6-25 bpm (Yeny Shaye, RN) Accelerations: 10X10 (Yeny Shaye, RN) Decelerations: None (Yeny Shaye, RN) Datetime: 08/02/2016 07:40 NBP Sys/Tania/Mean (mmHg): 124 (QS system process) : 90 (QS system process) : 103 (QS system process) Pulse: 78 (QS system process) LaborFlag: Antepartum (QS system process) Datetime: 08/02/2016 07:30 Monitor Mode: External; Palpation (Yeny Shaye, RN) Frequency (min): 2-3 (Yeny Shaye, RN) Quality: Mild/Moderate (Yeny Shaye, RN) Duration (sec): 60-80 (Yeny Shaye, RN) Resting Tone (Palpate): Relaxed (Yeny Shaye, RN) Monitor Mode: External US (Yeny Shaye, RN) FHR Baseline Rate : 135 (Yeny Shaye, RN) Variability: Moderate 6-25 bpm (Yeny Shaye, RN) Accelerations: 10X10 (Yeny Shaye, RN) Decelerations: None (Yeny Shaye, RN) Level of Consciousness: Fully Conscious (Yeny Shaye, RN) DTR's/Clonus: DTRs 1+; No Clonus (Yeny Shaye, RN) Headache: Denies (Yeny Shaye, RN) Breath Sounds, Left: Clear and Equal (Yeny Shaye, RN) Breath Sounds, Right: Clear and Equal (Yeny Shaye, RN) Nausea/Vomiting: Denies (Yeny Shaye, RN) RUQ Epigastric Pain: Denies (Yeny Shaye, RN) Datetime: 08/02/2016 07:12 Communication: Report Given to @ H.Shaye, RN; care relinquished at this time. (Samia Sims, RN) Communication Comments: Report from Mague Sims RN. Care assumed (Yeny Cr RN) Datetime: 08/02/2016 07:10 NBP Sys/Tania/Mean (mmHg): 125 (QS system process) : 76 (QS system process) : 94 (QS system process) Pulse: 64 (QS system process) LaborFlag: Antepartum (QS system process) Datetime: 08/02/2016 07:00 Monitor Mode: External; Palpation (Samia Sims RN) Frequency (min): 2-5 (Samia Sims RN) Quality: Mild/Moderate (Samia Sims RN) Duration (sec): 70-90 (Samia Sims RN) Resting Tone (Palpate): Relaxed (Samia Sims RN) Monitor Mode: External US (Samia Sims RN) FHR Baseline Rate : 130 (Samia Sims RN) Variability: Moderate 6-25 bpm (Samia Sims RN) Accelerations: None (Samia Sims RN) Decelerations: None (Samia Sims RN)
[2016-08-02] MEDS: FERROUS SULFATE 325 MG TABLET PO SCH (20:34)
[2016-08-02] MEDS: DOCUSATE SODIUM 100 MG CAPSULE PO SCH (20:34)
[2016-08-02] MEDS: IBUPROFEN 800 MG TABLET PO SCH (21:27)
[2016-08-03] MEDS: LEVOTHYROXINE SODIUM 0.05 MG TABLET PO SCH (05:50)
[2016-08-03] MEDS: IBUPROFEN 800 MG TABLET PO SCH ×3 (05:50→22:40)
--- NOTE | 2016-08-03 06:01 | L&D Current Admission ---
Current Admit Datetime Report Generated by CPN: 08/03/2016 06:00 ADMISSION INFORMATION Current Admit Date/Time: 08/01/2016 02:36 (08/01/2016 02:36:Yung Middleton RN) Reason for Admission: Induction of Labor (08/01/2016 02:36:Yung Middleton RN) Chief Complaint: Scheduled Induction of Labor (Annotations: Related to GDM ) (08/01/2016 02:50:Yung Middleton RN) Medications During : Insulin; Labetolol; Vitamin; Levothyroxine Sodium (Synthroid); Rantidine (Zantac) (08/01/2016 02:36:Yung Middleton RN) EGA per Dates: 39.0 (08/01/2016 02:36:QS system process) Method of Arrival: Ambulatory (08/01/2016 02:36:Yung Middleton RN) Admitted From: Home (08/01/2016 02:36:Yung Middleton RN) Reason for Induction- Other: GDM (08/01/2016 02:36:Yung Middleton RN) Records Available: Yes (08/01/2016 02:36:Yung Middleton RN) General Admission Information: Reviewed; Updated; Confirmed (08/01/2016 02:36:Yung Middleton RN) General Admission Reviewed By: Gualberto Middleton RN (08/01/2016 02:36:Yung Middleton RN) BELONGINGS/ADVANCED DIRECTIVES Valuables/Personal Effects: Purse/Wallet; Cell Phone; Contact Lenses; Camera (08/01/2016 02:36:Yung Middleton RN) Disposition of Belongings: Kept with Patient (08/01/2016 02:36:Yung Middleton RN) Advance Direct for Healthcare: No, but Requests Information (08/01/2016 02:36:Yung Middleton RN) Durable Power of Oceanographer Physical: No (08/01/2016 02:36:Yung Middleton RN) Living Will: No (08/01/2016 02:36:Yung Middleton RN) Organ Donor: Yes (08/01/2016 02:36:Yung Middleton RN) Pt Rights Information Given: Yes (08/01/2016 02:36:Yung Middleton RN) Pt Understands Pt Rights: Yes (08/01/2016 02:36:Yung Middleton RN) LEARNING ASSESSMENT Knowledge Level: Understands L_D Process; Understands Diagnosis (08/01/2016 02:36:Yung Middleton RN) Barriers to Learning: None (08/01/2016 02:36:Yung Middleton RN) Learning Readiness: Motivated (08/01/2016 02:36:Yung Middleton RN) Learns Best By: 1 to 1 Instruction (08/01/2016 02:36:Yung Middleton RN) Learning Needs: Pain Management; Symptoms to Report; Treatment Plan; Medication; Infant Care (08/01/2016 02:36:Yung Middleton RN) DOMESTIC VIOLANCE SCREENING Dom Viol Threatened/Hurt: No (08/01/2016 02:36:Yung Middleton RN) Hx of Abuse/Neglect past 2yrs: No (08/01/2016 02:36:Yung Middleton RN) Feel Unsafe Going Home: No (08/01/2016 02:36:Yung Middleton RN) Addt'l Observ Indicating Abuse: No (08/01/2016 02:36:Yung Middleton RN) Reason Unable to Complete Screen: N/A, Screen Completed (08/01/2016 02:36:Yung Middleton RN) NUTRITIONAL/FUNCTIONAL SCREENING Problem with Appetite >5 Days: No (08/01/2016 02:36:Yung Middleton RN) Chew/Swallow Difficulties: No (08/01/2016 02:36:Yung Middleton RN) Inappropriate Wt Gain/Loss: No (08/01/2016 02:36:Yung Middleton RN) Presence Skin Breakdown/Ulcer: No (08/01/2016 02:36:Yung Middleton RN) Special Diet: No (08/01/2016 02:36:Yung Middleton RN) Pt Requests Strapping Machine Tender Visit: No (08/01/2016 02:36:Yung Middleton RN) Hx of Any of the Following?: N/A (08/01/2016 02:36:Yung Middleton RN) New Diagnosis of: Gest Diabetes (08/01/2016 02:36:Yung Middleton RN) Requires Assist w/Ambulation: No (08/01/2016 02:36:Yung Middleton RN) Uses Assist Device to Ambulate: No (08/01/2016 02:36:Yung Middleton RN) Pt Requires Help w/ADL's: No (08/01/2016 02:36:Yung Middleton RN)
--- NOTE | 2016-08-03 06:01 | L&D General Admission ---
General Admit Datetime Report Generated by CPN: 08/03/2016 06:00 INFORMATION Patient Age: 31 (08/01/2016 01:19:QS system process) EDC: 08/08/2016 00:00 (08/01/2016 01:25:Jacqueline Brice RN) : 3 (08/01/2016 01:25:Yung Middleton RN) Para: 1 (08/01/2016 01:25:Yung Middleton RN) Term: 1 (08/01/2016 01:25:Yung Middleton RN) : 0 (08/01/2016 01:25:Jacqueline Brice RN) Spontaneous Abortions: 1 (08/01/2016 01:25:Jacqueline Brice RN) Induced Abortions: 0 (08/01/2016 01:25:Jacqueline Brice RN) Livin (08/01/2016 01:25:Yung Middleton RN) Cesareans: 0 (08/01/2016 01:25:Yung Middleton RN) VBACs: 0 (08/01/2016 01:25:Jacqueline Brice RN) Ectopic: 0 (08/01/2016 01:25:Jacqueline Brice RN) Multiple Births: 0 (08/01/2016 01:25:Jacqueline Brice RN) Baby, Number in Womb: 1 (08/01/2016 01:25:Jacqueline Brice RN) CARE Primary Pipeline Welder: [facility] (08/01/2016 01:25:Yung Middleton RN) Adequate Care: Yes (08/01/2016 01:25:Yung Middleton RN) Prepregnancy Weight (lb): 155 (08/01/2016 01:25:Yung Middleton RN) Prepregnancy Weight (kg): 70.5 (08/01/2016 01:25:QS system process) Height (in): 63 (08/02/2016 17:53:QS system process) ALLERGIES Medication Allergy: Yes (08/01/2016 01:25:Yung Middleton RN) Medication Allergies: ondansetron/Pruritis (08/01/2016) (08/01/2016 01:55:QS system process) Latex Allergy: No Latex Allergies (08/01/2016 01:25:Yung Middleton RN) Food Allergies: Mustard (08/01/2016 01:25:Yung Middleton RN) Environmental Allergies: None (08/01/2016 01:25:Yung Middleton RN) COMMUNICATION Primary Language: Tanzanian (08/01/2016 01:25:Yung Middleton RN) Medical Tx Preferred Language: Tanzanian (08/01/2016 01:25:Yung Middleton RN) DEMOGRAPHICS Address: [address] [place] [id number] (08/01/2016 01:19:QS system process) Zipcode: [address] (08/01/2016 01:19:QS system process) Home (08/01/2016 01:19:QS system process) Work (08/01/2016 10:27:QS system process) N: [id number] (08/01/2016 01:19:QS system process) Next of Kin Name: ALEKSEY ROSARIO (08/01/2016 01:19:QS system process) Next of Kin (08/01/2016 01:19:QS system process) Next of Kin Relationship: SPO (08/01/2016 01:19:QS system process) Date of : 1985 (08/01/2016 01:19:QS system process) Marital Status: (08/01/2016 01:19:QS system process) Sex: Female (08/01/2016 01:19:QS system process) Race: Other (08/01/2016 01:19:QS system process) Ethnicity: or (08/01/2016 01:19:QS system process) Sabianism: None (08/01/2016 01:19:QS system process) DRUG AND ALCOHOL USE Alcohol: Yes (08/01/2016 01:25:Yung Middleton RN) Average Alcohol Consumption: Occasional (08/01/2016 01:25:Yung Middleton RN) Advised to Stop Alcohol: Yes (08/01/2016 01:25:Yung Middleton RN) Alcohol Comments: Before (08/01/2016 01:25:Yung Middleton RN) Cigarettes: Never Smoker. [phone] (08/01/2016 01:25:Yung Middleton RN) Marijuana: No (08/01/2016 01:25:Yung Middleton RN) Cocaine: No (08/01/2016 01:25:Yung Middleton RN) Other Illicit Drugs: No (08/01/2016 01:25:Yung Middleton RN) VACCINE HISTORY Influenza Vaccine: No (08/01/2016 01:25:Yung Middleton RN) Pneumococcal Vaccine: No (08/01/2016 01:25:Yung Middleton RN) Tetanus Vaccine: Yes (08/01/2016 01:25:Yung Middleton RN) Tetanus Date: Dec 2014 (08/01/2016 01:25:Yung Middleton RN) Tdap Vaccine: Yes (08/01/2016 01:25:Yung Middleton RN) Tdap Date: June 2016 (08/01/2016 01:25:Yung Middelton RN) Hepatitis B Vaccine: Uncertain (08/01/2016 01:25:Yung Middleton RN) Configuration Manager: [facility] (08/01/2016 01:25:Yung Middleton RN) Feeding Preference: Formula (08/01/2016 01:25:Yung Middleton RN) Benefit of Breast Feed Discussed: Yes (08/01/2016 01:25:Cezar De Jesus RN) Circumcision: N/A (08/01/2016 01:25:Yung Middleton RN) Classes Attended: No (08/01/2016 01:25:uYng Middleton RN) Tubal Ligation: No (08/01/2016 01:25:Yung Middleton RN) Tubal Authorization Signed: N/A (08/01/2016 01:25:Yung Middleton RN) Consent: N/A (08/01/2016 01:25:Yung Middleton RN) Consent Signed: N/A (08/01/2016 01:25:Yung Middleton RN) Pain Management Plans: Epidural (08/01/2016 01:25:Yung Middleton RN) Plans for Labor and Delivery: None (08/01/2016 01:25:Yung Middleton RN) Support Person: Aleksey Rosario (08/01/2016 01:25:Yung Middleton RN) Support Person Relationship: (08/01/2016 01:25:Yung Middleton RN) Cultural/Spritual Practice: No (08/01/2016 01:25:Yung Middleton RN) Spir/Cult Dietary Needs: No (08/01/2016 01:25:Yung Middleton RN) LIVING SITUATION/DISCHARGE PLAN Living Arrangements: House (08/01/2016 01:25:Yung Middleton RN) Adequate Access to:: Electric; Heat; Refrigeration; Plumbing/Running water; Phone; Transportation (08/01/2016 01:25:Yung Middleton RN) WIC Program: Lisa (08/01/2016 01:25:Yung Middleton RN) Discharge Assembler Billiard Table Person: Aleksey Abernathynandez (08/01/2016 01:25:Yung Middleton RN) Person to Help after Discharge: Aleksey Abernathynandez (08/01/2016 01:25:Yung Middleton RN) Currently Using Commun Resources: No (08/01/2016 01:25:Yung Middleton RN) Outside Agency/Process Automation Engineer: No (08/01/2016 01:25:Yung Middleton RN) Car Seat for Discharge: Yes (08/01/2016 01:25:Yung Middleton RN) Adoption Requested: No (08/01/2016 01:25:Yung Middleton RN) Pt Contact w/infant Post : N/A (08/01/2016 01:25:Yung Middleton RN) LABS Blood Type: A Positive (08/01/2016 01:25:Jacqueline Brice RN) Antibody Screen: Negative (08/01/2016 01:25:Jacqueline Brice RN) Rho(G) this : Not Applicable (08/01/2016 01:25:Jacqueline Brice RN) Hemoglobin: 11.4 L (08/01/2016 01:57:QS system process) Hematocrit: 34.1 L (08/01/2016 01:57:QS system process) MCV: 90 (08/01/2016 01:57:BRICE system process) Group Beta Strep: Negative (08/01/2016 01:25:Jacqueline Brice RN) Gonorrhea: Negative (08/01/2016 01:25:Jacqueline Brice RN) Chlamydia: Negative (08/01/2016 01:25:Jacqueline Brice RN) RPR/VDRL: Nonreactive (08/01/2016 01:25:Jacqueline Brice RN) HIV Results: Negative (08/01/2016 01:25:Jacqueline Brice RN) Hepatitis B: Negative (08/01/2016 01:25:Jacqueline Brice RN) Rubella: Immune (08/01/2016 01:25:Jacqueline Brice RN) OB/PREVIOUS HISTORY Previous Procedures: Ultrasound; NST (08/01/2016 01:25:Yung Middleton RN) Current Procedures: Ultrasound; NST (08/01/2016 01:25:Yung Middleton RN) History of Previous : No (08/01/2016 01:25:Yung Middleton RN) History of Gestational Diabetes: Yes (08/01/2016 01:25:Yung Middleton RN) History of PIH: No (08/01/2016 01:25:Yung Middleton RN) History of Incompetent Cervix: No (08/01/2016 01:25:Yung Middleton RN) History of Placenta Previa/Abrup: (08/01/2016 01:25:Yung Middleton RN) History of Macrosomia: No (08/01/2016 01:25:Yung Middleton RN) History of IUGR: No (08/01/2016 01:25:Yung Middleton RN) History of Hemorrhage: No (08/01/2016 01:25:Yung Middleton RN) History of Loss/Stillborn: No (08/01/2016 01:25:Yung Middleton RN) History of : No (08/01/2016 01:25:Yung Middleton RN) History of D (Rh) Sensitization: No (08/01/2016 01:25:Yung Middleton RN) History Recurrent Loss/Stillborn: No (08/01/2016 01:25:Yung Middleton RN) History Depression/PP Depression: No (08/01/2016 01:25:Yung Middleton RN) History of Uterine Anomaly/YOVANA: No (08/01/2016 01:25:Yung Middleton RN) History of Infertility: No (08/01/2016 01:25:Yung Middleton RN) History of ART Treatment: No (08/01/2016 01:25:Yung Middleton RN) History of YOVANA: No (08/01/2016 01:25:Yung Middleton RN) Comments Obstetrical History: G1- male @ 38wks 5lbs 4oz G2-SAB at 5 weeks G3-Current (08/01/2016 01:25:Jacqueline Brice RN) MEDICAL HISTORY Med Hx Diabetes: Yes (08/01/2016 01:25:Tawny Fuentes RN) Diabetes Type: Gestational Diabetes (08/01/2016 01:25:Yung Middleton RN) Med Hx Hypertension: Yes (08/01/2016 01:25:Yung Middleton RN) Med Hx Heart Disease: No (08/01/2016 01:25:Yung Middleton RN) Med Hx Autoimmune Disorder: No (08/01/2016 01:25:Yung Middleton RN) Med Hx Kidney Disease/UTI: No (08/01/2016 01:25:Yung Middleton RN) Med Hx Neurologic/Epilepsy: No (08/01/2016 01:25:Yung Middleton RN) Med Hx Psychiatric Disorders: No (08/01/2016 01:25:Yung Middleton RN) Med Hx Hepatitis/Liver Disease: No (08/01/2016 01:25:Yung Middleton RN) Med Hx Varicosities/Phlebitis: No (08/01/2016 01:25:Yung Middleton RN) Med Hx Thyroid Dysfunction: Yes (08/01/2016 01:25:Yung Middleton RN) Med Hx Trauma/Violence: No (08/01/2016 01:25:Yung Middleton RN) Med Hx Blood Transfusion: No (08/01/2016 01:25:Yung Middleton RN) Med Hx Pulmonary (Asthma,TB): No (08/01/2016 01:25:Yung Middleton RN) Med Hx Breast: No (08/01/2016 01:25:Yung Middleton RN) Med Hx MILK CONDENSER Surgery: No (08/01/2016 01:25:Yung Middleton RN) Med Hx Hospitalization/Surgery: Yes (08/01/2016 01:25:Yung Middleton RN) Med Hx Anesthetic Complications: No (08/01/2016 01:25:Yung Middleton RN) Med Hx Abnormal Pap Smear: No (08/01/2016 01:25:Yung Middleton RN) Other Medical Diseases: No (08/01/2016 01:25:Yung Middleton RN) Med Hx Significant Family Hx: No (08/01/2016 01:25:Yung Middleton RN) Details of Med/Surg Hx: 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 htn: CHTN on labetalol Pt had partial thyroidectomy for thyroid cancer (December 2014), on synthroid (08/01/2016 01:25:Tawny Fuentes RN) INFECTIOUS HISTORY Inf Hx Gonorrhea: No (08/01/2016 01:25:Yung Middleton RN) Inf Hx Chlamydia: No (08/01/2016 01:25:Yung Middleton RN) Inf Hx Syphilis: No (08/01/2016 01:25:Yung Middleton RN) Inf Hx HIV/AIDS: No (08/01/2016 01:25:Yung Middleton RN) Inf Hx Human Papilloma Virus: No (08/01/2016 01:25:Yung Middleton RN) Inf Hx Pt/Partner Genital Herpes: No (08/01/2016 01:25:Yung Middleton RN) Inf Hx Tuberculosis/Exposure: No (08/01/2016 01:25:Yung Middleton RN) Inf Hx Hepatitis B,C: No (08/01/2016 01:25:Yung Middleton RN) Inf Hx Rash or Viral Illness: No (08/01/2016 01:25:Yung Middleton RN) GENETIC HISTORY Gen Hx Age >=35 at KAEL: No (08/01/2016 01:25:Yung Middleton RN) Gen Hx Thalassemia: No (08/01/2016 01:25:Yung Middleton RN) Gen Hx Congenital Heart Defect: No (08/01/2016 01:25:Yung Middleton RN) Gen Hx Neural Tube Defect: No (08/01/2016 01:25:Yung Middleton RN) Gen Hx Down's Syndrome: No (08/01/2016 01:25:Yung Middleton RN) Gen Hx Konstantin-Sachs: No (08/01/2016 01:25:Yung Middleton RN) Gen Hx Venu: No (08/01/2016 01:25:Yung Middleton RN) Gen Hx Familial Dysautonomia: No (08/01/2016 01:25:Yung Middleton RN) Gen Hx Sickle Cell Disease/Trait: No (08/01/2016 01:25:Yung Middleton RN) Gen Hx Hemophilia/Blood Disorder: No (08/01/2016 01:25:Yung Middleton RN) Gen Hx Muscular Dystrophy: No (08/01/2016 01:25:Yung Middleton RN) Gen Hx Cystic Fibrosis: No (08/01/2016 01:25:Yung Middleton RN) Gen Hx [place] Chorea: No (08/01/2016 01:25:Yung Middleton RN) Gen Hx Mental Retardation/Autism: No (08/01/2016 01:25:Yung Middleton RN) Gen Hx Tested for Fragile X: No (08/01/2016 01:25:Yung Middleton RN) Gen Hx Other Inher/Chromosomal: No (08/01/2016 01:25:Yung Middleton RN) Gen Hx Maternal Metabolic DO: Yes (08/01/2016 01:25:Yung Middleton RN) Gen Hx Pt Father or FOB Defect: No (08/01/2016 01:25:Yung Middleton RN) Gen Hx Other Genetic History: No (08/01/2016 01:25:Yung Middleton RN) Gen Hx Drugs/Meds since LMP: Yes (08/01/2016 01:25:Tawny Fuentes RN) Gen Hx Medications: labetolol, insulin, synthroid, pnv (08/01/2016 01:25:Yeny Cr RN) Details of Genetic History: Pts mother has Type 1 Diabetes (08/01/2016 01:25:Yung Middleton RN)
--- NOTE | 2016-08-03 06:15 | L&D Care Plan ---
LD CARE PLANS Datetime Report Generated by CPN: 08/03/2016 06:15 Datetime: 08/01/2016 02:42 Pain State: Actual (Jacqueline Brice RN) Related To: Labor and Delivery Process; Treatment and Procedures; Post (Jacqueline Brice RN) Goal(s): Patients Pain will be Assessed and Managed; Patient will Verbalize Adequate Relief of Pain or the Ability to [place] with Current Pain (Jacqueline Brice RN) Interventions: Assess Pain Severity on Scale of 0 (None) to 5 (Severe); Assess Type, Location and Intensity of Pain Each Time Client Reports Discomfort and Notify Provider if Unusal Pain Develops; Encourage Proper Breathing and Relaxation Techniques; Offer Alternatives Such as Repositioning, Calm Environment, Massages, Diversional Activities, Ice Pack, Splinting, and Ambulation; Administer Analgesics as Ordered; Assist with Epidural Placement as Appropriate; Evaluate Therapeutic Effectiveness of Medication and Treatments (Jacqueline Brice RN) Outcome: Patient will Report Absence or Relief of Pain Consistent with Established Pain Goal (Jacqueline Brice RN) Status: Ongoing (Jacqueline Brice RN) Outcome: Patient will have a Decrease in Signs and Symptoms of Discomfort (Jacqueline Brice RN) Status: Ongoing (Jacqueline Brice RN) Outcome: Pain will be Controlled During Procedures (Jacqueline Brice RN) Status: Ongoing (Jacqueline Brice RN) Anxiety State: Risk For (Jacqueline Brice RN) Related To: Labor and Delivery Process; Fear of Unknown; Significant Life Event (Jacqueline Brice RN) Goal(s): Patient will have Decreased Anxiety and be able to Function at Acceptable Levels (Jacqueline Brice RN) Interventions: Assess Verbal and Nonverbal Behavioral Indicators of Anxiety; Assist Patient to Identify and Verbalize Symptoms of Anxiety; Identify and Demonstrate Techniques to Control Anxiety; Assist Patient with Coping Mechanisms to Manage Anxiety; Provide Theraputic Touch for the Patient; Explain to Patient, Using a Calm Reassuring Approach and Nonmedical Terms, All Activities, Procedures, and Concerns; Instruct Patient and Family about Post Discharge Care, Limitations, Symptoms to Report and Resources Available (Jacqueline Brice RN) Outcome: Patient will Identify, Verbalize and Demonstrate Techniques to Control Anxiety (Jacqueline Brice RN) Status: Ongoing (Jacqueline Brice RN) Outcome: Patient's Posture, Facial Expressions, Gestures and Activity Level will Reflect Decreased Anxiety (Jacqueline Brice RN) Status: Ongoing (Jacqueline Brice RN) Outcome: Patient will Verbalize a Sense of Control and/or Acceptance of the Situation (Jacqueline Briec RN) Status: Ongoing (Jacqueline Brice RN) Outcome: Patient will Identify and Utilize Support Person (Jacqueline Brice RN) Status: Ongoing (Jacqueline Brice RN) Knowledge Deficit State: Not Applicable (Jacqueline Brice RN) Infection State: Risk For (Jacqueline Brice RN) Related To: Prolonged Labor or Induction; Invasive Procedures; Altered Tissue Integrity (Jacqueline Brice RN) Goal(s): The Patient will be Free of Infection, Vital Signs Stable and Lab Work within Normal Parameters (Jacqueline Brice RN) Interventions: Instruct and Reinforce Proper Handwashing, Hygiene, and Care Techniques to Patient and Family; Monitor Vital Signs; Monitor Patient for the Following Signs of Infection: Fever, Abdominal Tenderness, Unusual Discharge; Monitor Aminiotic Fluid, Urine and Lochia for Color and Odor; Observe Wounds, Incisions and Invasive Line Sites for Redness, Drainage and Edema; Assess IV Sites per Hospital Policy; Monitor Lab and Test Results and Notify Provider of Abnormal Findings; Assess Nutritional Status and Promote Good Nutrition (Jacqueline Brice RN) Outcome: Patient will Remain Free of Infection (Jacqueline Brice RN) Status: Ongoing (Jacqueline Brice RN) Outcome: Infection will be Recognized Early to Allow for Prompt Treatment (Jacqueline Brice RN) Status: Ongoing (Jacqueline Brice RN) Outcome: Patient will have Vital Signs Within Expected Range (Jacqueline Brice RN) Status: Ongoing (Jacqueline Brice RN) Fluid Volume State: Risk For (Jacqueline Brice RN) Related To: Prolonged Labor or Induction (Jacqueline Brice RN) Goal(s): Patient will Achieve and Maintain a Balanced Fluid Volume Status; Hemodynamically Stable (Jacqueline Brice RN) Interventions: Monitor Vital Signs; Auscultate Breath Sounds; Monitor Patient for Skin Turgor, Mucous Membranes, Dry Skin, Weakness, Headaches and Confusion; Provide Oral Fluids as Ordered; Initiate and Maintain Intravenous Fluids as Ordered; Monitor Intake and Output as Indicated Per Patient Status; Accurately Measure Blood Loss; Monitor Lab and Test Results as Obtained and Notify Provider of Abnormal Findings; Monitor Patient's Weight (Jacqueline Brice RN) Outcome: Patient will have Clear Lung Sounds (Jacqueline Brice RN) Status: Ongoing (Jacqueline Brice RN) Outcome: Patient will have Vital Signs within Expected Range (Jacqueline Brice RN) Status: Ongoing (Jacqueline Brice RN) Outcome: Urine Output will be within Expected Range (Jacqueline Brice RN) Status: Ongoing (Jacqueline Brice RN) Outcome: Patient will have Minimal Generalized or Upper Extremity Edema (Jacqueline Brice RN) Status: Ongoing (Jacqueline Brice RN) Injury State: Risk For (Jacqueline Brice RN) Related To: Labor and Delivery Process (Jacqueline Brice RN) Goal(s): Patient will Remain Free from Injury (Jacqueline Brice RN) Interventions: Monitoring as per Hospital Protocol; Assess Neurological Status; Perform Risk Assessment of Patients with Induction and ; Perform Fall Risk Assessment and Prevention per Hospital Protocol; Perform DVT Risk Assessment and Prophylaxis per Hospital Protocol; Ensure that Oxygen, Suction, and Resuscitation Medications and Equipment are Readily Available; Confirm Patient ID Prior to Procedure(s) and Medication Administration per Hospital Policy (Jacqueline Brice RN) Outcome: Successful Fall Risk Prevention (Jacqueline Brice RN) Status: Ongoing (Jacqueline Brice RN) Outcome: Patient will Deliver without Adverse Sequela (Jacqueline Brice RN) Status: Ongoing (Jacqueline Brice RN) Outcome: Patient's Neurological Status will Remain Stable (Jacqueline Brice RN) Status: Ongoing (Jacqueline Brice RN) Impaired Skin Integrity State: Risk For (Jacqueline Brice RN) Related To: Vaginal Delivery; Altered Tissue Integrity; Invasive Procedures (Jacqueline Brice RN) Goal(s): Patient will Maintain Optimal Skin Integrity, Free of Breakdown, Injury or Infection (Jacqueline Brice RN) Interventions: Complete Screening for Pressure Ulcer Risk and Initiate Protocol per Hospital Policy; Monitor Site of Skin Impairment for Color Changes, Redness, Swelling, Warmth, Pain or Other Signs of Infection; Encourage and Assist with Position Changes; Monitor Patient's Mobility Status; Provide Adequate Nutrition and Fluids; Teach Patient Appropriate Hygienic Care; Teach Patient/Family Skin Care Management (Jacqueline Brice RN) Outcome: Patient will not have Evidence of Injury Such as Skin Breakdown, Scrapes, Cuts, or Bruising (Jacqueline Brice RN) Status: Ongoing (Jacqueline Brice RN) Outcome: Patient will Report Any Altered Sensation or Pain at Site of Skin Impairment (Jacqueline Brice RN) Status: Ongoing (Jacqueline Brice RN) Outcome: Patients Incisions and Wounds will be without Signs or Symptoms of Infection (Jacqueline Brice RN) Status: Ongoing (Jacqueline Brice RN) Outcome: Patient will Demonstrate Understanding of Plan to Heal Skin and Prevent Reinjury and Verbalize Risk Factors (Jacqueline Brice RN) Status: Ongoing (Jacqueline Brice RN)
[2016-08-03 07:24] LABS: HEMATOCRIT 31.7 % (36.0-47.0); HEMOGLOBIN 10.6 g/dL (12.0-15.5); HGB HCT DIFFERENCE 0.1; MEAN CORPUSCULAR HEMOGLOBIN 30.3 pg (27.0-33.4); MEAN CORPUSCULAR HGB CONC 33.5 g/dL (32.0-36.0); MEAN CORPUSCULAR VOLUME 91 fl (80-97); RED CELL DISTRIBUTION WIDTH 13.8 % (11.5-14.0); WHITE BLOOD COUNT 13.1 10^3/uL (4.0-10.5)
--- NOTE | 2016-08-03 09:07 | PDOC PROGRESS REPORT ---
Subjective-OB Subjective: Post Delivery Day: 1 31 year old. Denies any needs at this time, states lochia is stable, voiding without difficulty, pain well controlled. Physical Exam (OB) Vital Signs: Temp Pulse Resp BP Pulse Ox 98.1 F 81 17 116/72 99 08/03/16 08:14 08/03/16 08:14 08/03/16 08:14 08/03/16 08:14 08/03/16 08:14 Intake & Output 08/02/16 08/03/16 08/04/16 06:59 06:59 06:59 Intake Total 300 Balance 300 - PIH/Pre-Eclampsia DTR's: 1 + Clonus: Negative Headache: Absent Epigastric Pain: No Visual Changes: No - Lochia Lochia Amount: Small 10-25 ml Lochia Color: Rubra/Red - Abdomen Description: Tender, Soft Hernia Present: No Fundal Description: Firm, Midline Fundal Height: u/u - u/2 Objective-Diagnostic Laboratory: 08/03/16 07:13 08/01/16 01:57 08/03/16 07:13 WBC 13.1 H RBC 3.50 L Hgb 10.6 L Hct 31.7 L MCV 91 MCH 30.3 MCHC 33.5 RDW 13.8 Plt Count 231 Assessment and Plan(PN) - Assessment and Plan (1) Vaginal delivery Is this a current diagnosis for this admission?: YesPlan: routine pp care - Disposition Anticipated Discharge: Home Within: within 24 hours
[2016-08-03] MEDS: PRENATAL VITAMIN W-O CA NO5/FE FUMARATE/FA CAPSULE PO SCH (09:43)
[2016-08-03] MEDS: DOCUSATE SODIUM 100 MG CAPSULE PO SCH ×2 (09:43→17:14)
[2016-08-03] MEDS: SENNOSIDES/DOCUSATE 8.6-50 MG 1 EACH TABLET PO SCH (09:43)
[2016-08-03] MEDS: FERROUS SULFATE 325 MG TABLET PO SCH ×2 (09:43→17:14)
[2016-08-04] MEDS: LEVOTHYROXINE SODIUM 0.05 MG TABLET PO SCH (06:33)
[2016-08-04] MEDS: IBUPROFEN 800 MG TABLET PO SCH (06:33)
[2016-08-04 08:42] VITALS: BP 119/71
[2016-08-04] MEDS: PRENATAL VITAMIN W-O CA NO5/FE FUMARATE/FA CAPSULE PO SCH (09:15)
[2016-08-04] MEDS: DOCUSATE SODIUM 100 MG CAPSULE PO SCH (09:15)
[2016-08-04] MEDS: SENNOSIDES/DOCUSATE 8.6-50 MG 1 EACH TABLET PO SCH (09:15)
[2016-08-04] MEDS: FERROUS SULFATE 325 MG TABLET PO SCH (09:15)
--- NOTE | 2016-08-04 09:50 | PDOC DISCHARGE SUMMARY ---
Final Diagnosis Discharge Date: 08/04/16 - Final Diagnosis (1) Vaginal delivery Is this a current diagnosis for this admission?: Yes Discharge Data - Discharge Medication Home Medications: Labetalol HCl [Normodyne 200 mg Tablet] 200 mg PO BID 08/01/16 Levothyroxine Sodium 50 mcg PO DAILY 08/01/16 Pnv No.122/Iron/Folic Acid [ Multi Tablet] 1 each PO DAILY 08/01/16 Docusate Sodium [Colace 100 mg Capsule] 100 mg PO BID #60 capsule 08/04/16 Ferrous Sulfate [Feosol 325 mg Tablet] 325 mg PO BID #60 tablet 08/04/16 Ibuprofen [Motrin 800 mg Tablet] 800 mg PO Q8 #60 tablet 08/04/16 Gestational Age: 39 Reason(s) for Admission: Induction of Labor, Gestional Diabetes Admission Note: chtn Procedures: NST Intrapartum Procedure(s): Spontaneous Vaginal Delivery - Data Baby 1 Female at 1 minute: 5 at 5 minutes: 5 at 10 minutes: 8 Weight: 2.58 kg Home with Mother: Yes Complications: Yes - respiratory distress - Diagnosis Test Laboratory: Temp Pulse Resp BP Pulse Ox 97.8 F 83 18 119/71 100 08/04/16 08:36 08/04/16 08:36 08/04/16 08:36 08/04/16 08:36 08/04/16 08:36 08/01/16 08/01/16 08/03/16 01:43 01:57 07:13 RBC 3.81 3.50 L Hgb 11.4 L 10.6 L Hct 34.1 L 31.7 L Urine Opiates Screen NEGATIVE - Discharge information/Instructions Discharge Activity: Activity As Tolerated, Pelvic Rest, No tub bath Discharge Diet: Regular Disposition: HOME, SELF-CARE Follow up with: [facility] in: 1, Weeks
--- NOTE | 2016-08-20 09:42 | Delivery Summary ---
Del Sum A-C Datetime Report Generated by CPN: 08/20/2016 09:42 DELIVERY PERSONNEL DELIVERY PERSONNEL: [id number] Delivery Doctor:: Esme Magana CNM Labor and Delivery Nurse:: Yeny Cr RNcareer development coordinator Nurse:: Alexandra Love RN Ramp Boss/RECOVERY COORDINATOR: Zamzam Dominique, SUPERVISOR BRAIDING MATERNAL INFORMATION Delivery Anesthesia: Epidural Medications After Delivery: Pitocin Bolus-Please Comment Meds After Delivery Comment: Pitocin 20 units in 1000mL NSS Estimated Blood Loss (ml): 200 Provider Comments: Pt progressed rapidly to 10/100/+2, pushed over 2 contractions, head delivered, shoulder and body delivered with next ctx. with poor respiratory effort. Cord clamped X2 cut free and handed off to warmner. Spontaneous delivery of placenta, appears intact, 3 VC. Vagina and perineum inspected no lacerations noted. hemostasis acheived with external fundal massage and IV pitocin. to NICU. Mother in stable condition. LABOR SUMMARY EDC: 08/08/2016 00:00 No. Babies in Womb: 1 Attempted: No Labor Anesthesia: Epidural LABOR INFORMATION Reason for Induction: Intrauterine Growth Retardation; Chronic Hypertension; Maternal Diabetes Cervical Ripening Agents: Cervidil; Cytotec @ Oxytocin: Induction Group B Beta Strep: Negative Steroids Given: None Reason Steroids Not Administered: Not Applicable [facility] Membranes Rupture Method: Artificial Rupture of Membranes: 08/02/2016 08:12 Length of Rupture (hr): 7.35 Amniotic Fluid Color: Clear Amniotic Fluid Amount: Moderate STAGES OF LABOR Stage 3 hr: 0 Stage 3 min: 7 VAGINAL DELIVERY Episiotomy: None Laceration Extension: N/A Laceration Type: None Laceration Repair Note: n/a Sponge Count Correct: N/A Sharps Count Correct: N/A CSECTION DELIVERY CSection Incision: N/A BABY A INFORMATION Delivery Date/Time: 08/02/2016 15:33 Method of Delivery: Vaginal Born in Route : No : N/A Forceps: N/A Vacuum Extraction: N/A Shoulder Dystocia : No PRESENTATION/POSITION BABY A Presentation: Cephalic Cephalic Presentation: Vertex Vertex Position: Right Occipital Anterior Breech Presentation: N/A PLACENTA INFORMATION BABY A Placenta Delivery Time : 08/02/2016 15:40 Placenta Method of Delivery: Spontaneous Placenta Status: Delivered SCORES BABY A Heart Rate 1 min: >100 bpm Resp Effort 1 min: Slow, Irregular Reflex Irritability 1 min: Grimace Muscle Tone 1 min: Some Flexion of Extremities Color 1 min: Blue/Pale Resuscitation Effort 1 min: Tactile Stimulation; PPV/NCPAP SCORE 1 MIN: 5 Heart Rate 5 min: >100 bpm Resp Effort 5 min: Slow, Irregular Reflex Irritability 5 min: Grimace Muscle Tone 5 min: Some Flexion of Extremities Color 5 min: Blue/Pale Resuscitation Effort 5 min: Tactile Stimulation; PPV/NCPAP SCORE 5 MIN: 5 Heart Rate 10 min: >100 bpm Resp Effort 10 min: Good Cry Reflex Irritability 10 min: Cough or Sneeze or Pulls Away Muscle Tone 10 min: Some Flexion of Extremities Color 10 min: Body [place], Extremities Blue Resuscitation Effort 10 min: N/A SCORE 10 MIN: 8 INFORMATION BABY A Gestational Age at Delivery: 38.1 Gestational Status: Early Term- 37- 38.6 Weeks Outcome : Liveborn Condition : Stable Infant Sex: Female IDENTIFICATION BABY A Infant Verification Date/Time: 08/02/2016 15:44 ID Band Number: [id number] Mother's Name Verified: Yes Infant RN Verifying Infant: A. Marge RN/ Jaren Love CORD INFORMATION BABY A No. Cord Vessels: 3 Nuchal Cord : N/A Cord Blood Taken: Yes-For Storage (Mom's Blood type +) ASSESSMENT BABY A Complications: Other Complications- Other: Terminal bradycardia Physical Findings at Delivery: Within Normal Limits Skin to Skin: No Safety Consultant/ALS Called : Yes Care By: Jaren Love RN Transferred To: NICU RESUSCITATION BABY A Resuscitation Effort: delivered at 1533. to maternal abdomen for dry and stimulation. Delayed cord clamping per H. AAKASH Magana. After approx. 1.5 minutes, infant to warmer. blue, poor tone, intermittent respiratory effort. Nursery notified. HR 60. Pulse ox applied. PPV for approx. 1 minute. Nursery at bedside. HR reassessed, 50. Chest compressions for approx. 1 minute. HR reassessed, 140. Periodic breathing. Infant placed in bassinet and taken to nursery. SIGNATURES Assignment: Kayy Vasquez MD Signature: with User ID: [email or web address] : with User ID: [email or web address]
--- NOTE | 2016-08-20 11:42 | L&D Discharge Summary ---
OB Discharge Summary Datetime Report Generated by CPN: 08/20/2016 11:41 DISCHARGE DIAGNOSIS Gestation: 39.1 Number of Babies in Womb: 1 Parity: 1
--- NOTE | 2016-08-20 18:02 | L&D General Admission ---
General Admit Datetime Report Generated by CPN: 08/20/2016 18:00 INFORMATION Patient Age: 31 (08/01/2016 01:19:QS system process) EDC: 08/08/2016 00:00 (08/01/2016 01:25:Jacqueline Brice RN) : 3 (08/01/2016 01:25:Yung Middleton RN) Para: 1 (08/01/2016 01:25:Yung Middleton RN) Term: 1 (08/01/2016 01:25:Yung Middleton RN) : 0 (08/01/2016 01:25:Jacquelien Brice RN) Spontaneous Abortions: 1 (08/01/2016 01:25:Jacqueline Brice RN) Induced Abortions: 0 (08/01/2016 01:25:Jacqueline Brice RN) Livin (08/01/2016 01:25:Yung Middleton RN) Cesareans: 0 (08/01/2016 01:25:Yung Middleton RN) VBACs: 0 (08/01/2016 01:25:Jacqueline Brice RN) Ectopic: 0 (08/01/2016 01:25:Jacqueline Brice RN) Multiple Births: 0 (08/01/2016 01:25:Jacqueline Brice RN) Baby, Number in Womb: 1 (08/01/2016 01:25:Jacqueline Brice RN) CARE Primary Trainman: [facility] (08/01/2016 01:25:Yung Middleton RN) Adequate Care: Yes (08/01/2016 01:25:Yung Middleton RN) Prepregnancy Weight (lb): 155 (08/01/2016 01:25:Yung Middleton RN) Prepregnancy Weight (kg): 70.5 (08/01/2016 01:25:QS system process) Height (in): 63 (08/04/2016 09:51:QS system process) ALLERGIES Medication Allergy: Yes (08/01/2016 01:25:Yung Middleton RN) Medication Allergies: ondansetron/Pruritis (08/01/2016) (08/01/2016 01:55:QS system process) Latex Allergy: No Latex Allergies (08/01/2016 01:25:Yung Middleton RN) Food Allergies: Mustard (08/01/2016 01:25:Yung Middleton RN) Environmental Allergies: None (08/01/2016 01:25:Yung Middleton RN) COMMUNICATION Primary Language: Malaysian (08/01/2016 01:25:Yung Middleton RN) Medical Tx Preferred Language: Malaysian (08/01/2016 01:25:Yung Middleton RN) DEMOGRAPHICS Address: [address] [place] [id number] (08/01/2016 01:19:QS system process) Zipcode: [id number] (08/01/2016 01:19:QS system process) Home (08/01/2016 01:19:QS system process) Work (08/01/2016 10:27:QS system process) N: [phone] (08/01/2016 01:19:QS system process) Next of Kin Name: ALEKSEY ROSARIO (08/01/2016 01:19:QS system process) Next of Kin (08/01/2016 01:19:QS system process) Next of Kin Relationship: SPO (08/01/2016 01:19:QS system process) Date of : 1985 (08/01/2016 01:19:QS system process) Marital Status: (08/01/2016 01:19:QS system process) Sex: Female (08/01/2016 01:19:QS system process) Race: Other (08/01/2016 01:19:QS system process) Ethnicity: or (08/01/2016 01:19:QS system process) Baptist: None (08/01/2016 01:19:QS system process) DRUG AND ALCOHOL USE Alcohol: Yes (08/01/2016 01:25:Yung Middleton RN) Average Alcohol Consumption: Occasional (08/01/2016 01:25:Yung Middleton RN) Advised to Stop Alcohol: Yes (08/01/2016 01:25:Yung Middleton RN) Alcohol Comments: Before (08/01/2016 01:25:Yung Middleton RN) Cigarettes: Never Smoker. [id number] (08/01/2016 01:25:Yung Middleton RN) Marijuana: No (08/01/2016 01:25:Yung Middleton RN) Cocaine: No (08/01/2016 01:25:Yung Middleton RN) Other Illicit Drugs: No (08/01/2016 01:25:Yung Middleton RN) VACCINE HISTORY Influenza Vaccine: No (08/01/2016 01:25:Yung Middleton RN) Pneumococcal Vaccine: No (08/01/2016 01:25:Yugn Middleton RN) Tetanus Vaccine: Yes (08/01/2016 01:25:Yung Middleton RN) Tetanus Date: Dec 2014 (08/01/2016 01:25:Yung Middleton RN) Tdap Vaccine: Yes (08/01/2016 01:25:Yung Middleton RN) Tdap Date: June 2016 (08/01/2016 01:25:Yung Middleton RN) Hepatitis B Vaccine: Uncertain (08/01/2016 01:25:Yung Middleton RN) Plaster Molder: [facility] (08/01/2016 01:25:Yung Middleton RN) Feeding Preference: Formula (08/01/2016 01:25:Yung Middleton RN) Benefit of Breast Feed Discussed: Yes (08/01/2016 01:25:Cezar De Jesus RN) Circumcision: N/A (08/01/2016 01:25:Yung Middleton RN) Classes Attended: No (08/01/2016 01:25:Yung Middleton RN) Tubal Ligation: No (08/01/2016 01:25:Yung Middleton RN) Tubal Authorization Signed: N/A (08/01/2016 01:25:Yung Middleton RN) Consent: N/A (08/01/2016 01:25:Yung Middleton RN) Consent Signed: N/A (08/01/2016 01:25:Yung Middleton RN) Pain Management Plans: Epidural (08/01/2016 01:25:Yung Middleton RN) Plans for Labor and Delivery: None (08/01/2016 01:25:Yung Middleton RN) Support Person: Aleksey Rosario (08/01/2016 01:25:Yung Middleton RN) Support Person Relationship: (08/01/2016 01:25:Yung Middleton RN) Cultural/Spritual Practice: No (08/01/2016 01:25:Yung Middleton RN) Spir/Cult Dietary Needs: No (08/01/2016 01:25:Yung Middleton RN) LIVING SITUATION/DISCHARGE PLAN Living Arrangements: House (08/01/2016 01:25:Yung Middleton RN) Adequate Access to:: Electric; Heat; Refrigeration; Plumbing/Running water; Phone; Transportation (08/01/2016 01:25:Yung Middleton RN) WIC Program: Lisa (08/01/2016 01:25:Yung Middleton RN) Discharge Distribution Spec Person: Aleksey Abernathynandez (08/01/2016 01:25:Yung Middleton RN) Person to Help after Discharge: Aleksey Abernathynandez (08/01/2016 01:25:Yung Middleton RN) Currently Using Commun Resources: No (08/01/2016 01:25:Yung Middleton RN) Outside Agency/Hard Candy Batch Mixer: No (08/01/2016 01:25:Yung Middleton RN) Car Seat for Discharge: Yes (08/01/2016 01:25:Yung Middleton RN) Adoption Requested: No (08/01/2016 01:25:Yung Middleton RN) Pt Contact w/infant Post : N/A (08/01/2016 01:25:Yung Middleton RN) LABS Blood Type: A Positive (08/01/2016 01:25:Jacqueline Brice RN) Antibody Screen: Negative (08/01/2016 01:25:Jacqueline Brice RN) Rho(G) this : Not Applicable (08/01/2016 01:25:Jacqueline Brice RN) Hemoglobin: 10.6 L (08/03/2016 07:13:QS system process) Hematocrit: 31.7 L (08/03/2016 07:13:QS system process) MCV: 91 (08/03/2016 07:13:QS system process) Group Beta Strep: Negative (08/01/2016 01:25:Jacqueline Brice RN) Gonorrhea: Negative (08/01/2016 01:25:Jacqueline Brice RN) Chlamydia: Negative (08/01/2016 01:25:Jacqueline Brice RN) RPR/VDRL: Nonreactive (08/01/2016 01:25:Jacqueline Brice RN) HIV Results: Negative (08/01/2016 01:25:Jacqueline Brice RN) Hepatitis B: Negative (08/01/2016 01:25:Jacqueline Brice RN) Rubella: Immune (08/01/2016 01:25:Jacqueline Brice RN) OB/PREVIOUS HISTORY Previous Procedures: Ultrasound; NST (08/01/2016 01:25:Yung Middleton RN) Current Procedures: Ultrasound; NST (08/01/2016 01:25:Yung Middleton RN) History of Previous : No (08/01/2016 01:25:Yung Middleton RN) History of Gestational Diabetes: Yes (08/01/2016 01:25:Yung Middleton RN) History of PIH: No (08/01/2016 01:25:Yung Middleton RN) History of Incompetent Cervix: No (08/01/2016 01:25:Yung Middleton RN) History of Placenta Previa/Abrup: (08/01/2016 01:25:Yung Middleton RN) History of Macrosomia: No (08/01/2016 01:25:Yung Middleton RN) History of IUGR: No (08/01/2016 01:25:Yung Middleton RN) History of Hemorrhage: No (08/01/2016 01:25:Yung Middleton RN) History of Loss/Stillborn: No (08/01/2016 01:25:Yung Middleton RN) History of : No (08/01/2016 01:25:Yung Middleton RN) History of D (Rh) Sensitization: No (08/01/2016 01:25:Yung Middleton RN) History Recurrent Loss/Stillborn: No (08/01/2016 01:25:Yung Middleton RN) History Depression/PP Depression: No (08/01/2016 01:25:Yung Middleton RN) History of Uterine Anomaly/YOVANA: No (08/01/2016 01:25:Yung Middleton RN) History of Infertility: No (08/01/2016 01:25:Yung Middleton RN) History of ART Treatment: No (08/01/2016 01:25:Yung Middleton RN) History of YOVANA: No (08/01/2016 01:25:Yung Middleton RN) Comments Obstetrical History: G1- male @ 38wks 5lbs 4oz G2-SAB at 5 weeks G3-Current (08/01/2016 01:25:Jacqueline Brice RN) MEDICAL HISTORY Med Hx Diabetes: Yes (08/01/2016 01:25:Tawny Fuentes RN) Diabetes Type: Gestational Diabetes (08/01/2016 01:25:Yung Middleton RN) Med Hx Hypertension: Yes (08/01/2016 01:25:Yung Middleton RN) Med Hx Heart Disease: No (08/01/2016 01:25:Yung Middleton RN) Med Hx Autoimmune Disorder: No (08/01/2016 01:25:Yung Middleton RN) Med Hx Kidney Disease/UTI: No (08/01/2016 01:25:Yung Middleton RN) Med Hx Neurologic/Epilepsy: No (08/01/2016 01:25:Yung Middleton RN) Med Hx Psychiatric Disorders: No (08/01/2016 01:25:Yung Middleton RN) Med Hx Hepatitis/Liver Disease: No (08/01/2016 01:25:Yung Middleton RN) Med Hx Varicosities/Phlebitis: No (08/01/2016 01:25:Yung Middleton RN) Med Hx Thyroid Dysfunction: Yes (08/01/2016 01:25:Yung Middleton RN) Med Hx Trauma/Violence: No (08/01/2016 01:25:Yung Middleton RN) Med Hx Blood Transfusion: No (08/01/2016 01:25:Yung Middleton RN) Med Hx Pulmonary (Asthma,TB): No (08/01/2016 01:25:Yung Middleton RN) Med Hx Breast: No (08/01/2016 01:25:Yung Middleton RN) Med Hx RIGGING AND [employer] Surgery: No (08/01/2016 01:25:Yung Middleton RN) Med Hx Hospitalization/Surgery: Yes (08/01/2016 01:25:Yung Middleton RN) Med Hx Anesthetic Complications: No (08/01/2016 01:25:Yung Middleton RN) Med Hx Abnormal Pap Smear: No (08/01/2016 01:25:Yung Middleton RN) Other Medical Diseases: No (08/01/2016 01:25:Yung Middleton RN) Med Hx Significant Family Hx: No (08/01/2016 01:25:Yung Middleton RN) Details of Med/Surg Hx: 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 htn: CHTN on labetalol Pt had partial thyroidectomy for thyroid cancer (December 2014), on synthroid (08/01/2016 01:25:Tawny Fuentes RN) INFECTIOUS HISTORY Inf Hx Gonorrhea: No (08/01/2016 01:25:Yung Middleton RN) Inf Hx Chlamydia: No (08/01/2016 01:25:Yung Middleton RN) Inf Hx Syphilis: No (08/01/2016 01:25:Yung Middleton RN) Inf Hx HIV/AIDS: No (08/01/2016 01:25:Yung Middleton RN) Inf Hx Human Papilloma Virus: No (08/01/2016 01:25:Yung Middleton RN) Inf Hx Pt/Partner Genital Herpes: No (08/01/2016 01:25:Yung Middleton RN) Inf Hx Tuberculosis/Exposure: No (08/01/2016 01:25:Yung Middleton RN) Inf Hx Hepatitis B,C: No (08/01/2016 01:25:Yung Middleton RN) Inf Hx Rash or Viral Illness: No (08/01/2016 01:25:Yung Middleton RN) GENETIC HISTORY Gen Hx Age >=35 at KAEL: No (08/01/2016 01:25:Yung Middleton RN) Gen Hx Thalassemia: No (08/01/2016 01:25:Yung Middleton RN) Gen Hx Congenital Heart Defect: No (08/01/2016 01:25:Yung Middleton RN) Gen Hx Neural Tube Defect: No (08/01/2016 01:25:Yung Middleton RN) Gen Hx Down's Syndrome: No (08/01/2016 01:25:Yung Middleton RN) Gen Hx Konstantin-Sachs: No (08/01/2016 01:25:Yung Middleton RN) Gen Hx Venu: No (08/01/2016 01:25:Yung Midldeton RN) Gen Hx Familial Dysautonomia: No (08/01/2016 01:25:Yung Middleton RN) Gen Hx Sickle Cell Disease/Trait: No (08/01/2016 01:25:Yung Middleton RN) Gen Hx Hemophilia/Blood Disorder: No (08/01/2016 01:25:Yung Middleton RN) Gen Hx Muscular Dystrophy: No (08/01/2016 01:25:Yung Middleton RN) Gen Hx Cystic Fibrosis: No (08/01/2016 01:25:Yung Middleton RN) Gen Hx [place] Ch[place]: No (08/01/2016 01:25:Yung Middleton RN) Gen Hx Mental Retardation/Autism: No (08/01/2016 01:25:Yung Middleton RN) Gen Hx Tested for Fragile X: No (08/01/2016 01:25:Yung Middleton RN) Gen Hx Other Inher/Chromosomal: No (08/01/2016 01:25:Yung Middleton RN) Gen Hx Maternal Metabolic DO: Yes (08/01/2016 01:25:Yung Middleton RN) Gen Hx Pt Father or FOB Defect: No (08/01/2016 01:25:Yung Middleton RN) Gen Hx Other Genetic History: No (08/01/2016 01:25:Yung Middleton RN) Gen Hx Drugs/Meds since LMP: Yes (08/01/2016 01:25:Tawny Fuentes RN) Gen Hx Medications: labetolol, insulin, synthroid, pnv (08/01/2016 01:25:Yeny Cr RN) Details of Genetic History: Pts mother has Type 1 Diabetes (08/01/2016 01:25:Yung Middleton RN)
--- NOTE | 2016-08-20 18:02 | L&D Current Admission ---
Current Admit Datetime Report Generated by CPN: 08/20/2016 18:00 ADMISSION INFORMATION Current Admit Date/Time: 08/01/2016 02:36 (08/01/2016 02:36:Yung Middleton RN) Reason for Admission: Induction of Labor (08/01/2016 02:36:Yung Middleton RN) Chief Complaint: Scheduled Induction of Labor (Annotations: Related to GDM ) (08/01/2016 02:50:Yung Middleton RN) Medications During : Insulin; Labetolol; Vitamin; Levothyroxine Sodium (Synthroid); Rantidine (Zantac) (08/01/2016 02:36:Yung Middleton RN) EGA per Dates: 39.0 (08/01/2016 02:36:QS system process) Method of Arrival: Ambulatory (08/01/2016 02:36:Yung Middleton RN) Admitted From: Home (08/01/2016 02:36:Yung Middleton RN) Reason for Induction- Other: GDM (08/01/2016 02:36:Yung Middleton RN) Records Available: Yes (08/01/2016 02:36:Yung Middleton RN) General Admission Information: Reviewed; Updated; Confirmed (08/01/2016 02:36:Yung Middleton RN) General Admission Reviewed By: Gualberto Middleton RN (08/01/2016 02:36:Yung Middleton RN) BELONGINGS/ADVANCED DIRECTIVES Valuables/Personal Effects: Purse/Wallet; Cell Phone; Contact Lenses; Camera (08/01/2016 02:36:Yung Middleton RN) Disposition of Belongings: Kept with Patient (08/01/2016 02:36:Yung Middleton RN) Advance Direct for Healthcare: No, but Requests Information (08/01/2016 02:36:Yung Middleton RN) Durable Power of Marketing Manager Health Communications: No (08/01/2016 02:36:Yung Middleton RN) Living Will: No (08/01/2016 02:36:Yung Middleton RN) Organ Donor: Yes (08/01/2016 02:36:Yung Middleton RN) Pt Rights Information Given: Yes (08/01/2016 02:36:Yung Middleton RN) Pt Understands Pt Rights: Yes (08/01/2016 02:36:Yung Middleton RN) LEARNING ASSESSMENT Knowledge Level: Understands L_D Process; Understands Diagnosis (08/01/2016 02:36:Yung Middleton RN) Barriers to Learning: None (08/01/2016 02:36:Yung Middleton RN) Learning Readiness: Motivated (08/01/2016 02:36:Yung Middleton RN) Learns Best By: 1 to 1 Instruction (08/01/2016 02:36:Yung Middleton RN) Learning Needs: Pain Management; Symptoms to Report; Treatment Plan; Medication; Infant Care (08/01/2016 02:36:Yung Middleton RN) DOMESTIC VIOLANCE SCREENING Dom Viol Threatened/Hurt: No (08/01/2016 02:36:Yung Middleton RN) Hx of Abuse/Neglect past 2yrs: No (08/01/2016 02:36:Yung Middleton RN) Feel Unsafe Going Home: No (08/01/2016 02:36:Yung Middleton RN) Addt'l Observ Indicating Abuse: No (08/01/2016 02:36:Yung Middleton RN) Reason Unable to Complete Screen: N/A, Screen Completed (08/01/2016 02:36:Yung Middleton RN) NUTRITIONAL/FUNCTIONAL SCREENING Problem with Appetite >5 Days: No (08/01/2016 02:36:Yung Middleton RN) Chew/Swallow Difficulties: No (08/01/2016 02:36:Yung Middleton RN) Inappropriate Wt Gain/Loss: No (08/01/2016 02:36:Yung Middleton RN) Presence Skin Breakdown/Ulcer: No (08/01/2016 02:36:Yung Middleton RN) Special Diet: No (08/01/2016 02:36:Yung Middleton RN) Pt Requests Lamp Cleaner Street Light Visit: No (08/01/2016 02:36:Yung Middleton RN) Hx of Any of the Following?: N/A (08/01/2016 02:36:Yung Middleton RN) New Diagnosis of: Gest Diabetes (08/01/2016 02:36:Yung Middleton RN) Requires Assist w/Ambulation: No (08/01/2016 02:36:Yung Middleton RN) Uses Assist Device to Ambulate: No (08/01/2016 02:36:Yung Middleton RN) Pt Requires Help w/ADL's: No (08/01/2016 02:36:uYng Middleton RN)
--- NOTE | 2016-08-20 20:21 | L&D General Admission ---
General Admit Datetime Report Generated by CPN: 08/20/2016 20:20 INFORMATION Patient Age: 31 (08/01/2016 01:19:QS system process) EDC: 08/08/2016 00:00 (08/01/2016 01:25:Jacqueline Brice RN) : 3 (08/01/2016 01:25:Yung Middleton RN) Para: 1 (08/01/2016 01:25:Yung Middleton RN) Term: 1 (08/01/2016 01:25:Yung Middleton RN) : 0 (08/01/2016 01:25:Jacqueline Brice RN) Spontaneous Abortions: 1 (08/01/2016 01:25:Jacqueline Brice RN) Induced Abortions: 0 (08/01/2016 01:25:Jacqueline Brice RN) Livin (08/01/2016 01:25:Yung Middleton RN) Cesareans: 0 (08/01/2016 01:25:Yung Middleton RN) VBACs: 0 (08/01/2016 01:25:Jacqueline Brice RN) Ectopic: 0 (08/01/2016 01:25:Jacqueline Brice RN) Multiple Births: 0 (08/01/2016 01:25:Jacqueline Brice RN) Baby, Number in Womb: 1 (08/01/2016 01:25:Jacqueline Brice RN) CARE Primary Hydrogen Braze Furnace Operator: [facility] (08/01/2016 01:25:Yung Middleton RN) Adequate Care: Yes (08/01/2016 01:25:Yung Middleton RN) Prepregnancy Weight (lb): 155 (08/01/2016 01:25:Yung Middleton RN) Prepregnancy Weight (kg): 70.5 (08/01/2016 01:25:QS system process) Height (in): 63 (08/04/2016 09:51:QS system process) ALLERGIES Medication Allergy: Yes (08/01/2016 01:25:Yung Middleton RN) Medication Allergies: ondansetron/Pruritis (08/01/2016) (08/01/2016 01:55:QS system process) Latex Allergy: No Latex Allergies (08/01/2016 01:25:Yung Middleton RN) Food Allergies: Mustard (08/01/2016 01:25:Yung Middleton RN) Environmental Allergies: None (08/01/2016 01:25:Yung Middleton RN) COMMUNICATION Primary Language: Tunisian (08/01/2016 01:25:Yung Middleton RN) Medical Tx Preferred Language: Tunisian (08/01/2016 01:25:Yung Middleton RN) DEMOGRAPHICS Address: [address] [place] [id number] (08/01/2016 01:19:QS system process) Zipcode: [phone] (08/01/2016 01:19:QS system process) Home (08/01/2016 01:19:QS system process) Work (08/01/2016 10:27:QS system process) N: [phone] (08/01/2016 01:19:QS system process) Next of Kin Name: ALEKSEY ROSARIO (08/01/2016 01:19:QS system process) Next of Kin (08/01/2016 01:19:QS system process) Next of Kin Relationship: SPO (08/01/2016 01:19:QS system process) Date of : 1985 (08/01/2016 01:19:QS system process) Marital Status: (08/01/2016 01:19:QS system process) Sex: Female (08/01/2016 01:19:QS system process) Race: Other (08/01/2016 01:19:QS system process) Ethnicity: or (08/01/2016 01:19:QS system process) Lutheran: None (08/01/2016 01:19:QS system process) DRUG AND ALCOHOL USE Alcohol: Yes (08/01/2016 01:25:Yung Middleton RN) Average Alcohol Consumption: Occasional (08/01/2016 01:25:Yung Middleton RN) Advised to Stop Alcohol: Yes (08/01/2016 01:25:Yung Middleton RN) Alcohol Comments: Before (08/01/2016 01:25:Yung Middleton RN) Cigarettes: Never Smoker. [phone] (08/01/2016 01:25:Yung Middleton RN) Marijuana: No (08/01/2016 01:25:Yung Middleton RN) Cocaine: No (08/01/2016 01:25:Yung Middleton RN) Other Illicit Drugs: No (08/01/2016 01:25:Yung Middleton RN) VACCINE HISTORY Influenza Vaccine: No (08/01/2016 01:25:Yung Middleton RN) Pneumococcal Vaccine: No (08/01/2016 01:25:Yung Middleton RN) Tetanus Vaccine: Yes (08/01/2016 01:25:Yung Middleton RN) Tetanus Date: Dec 2014 (08/01/2016 01:25:Yung Middleton RN) Tdap Vaccine: Yes (08/01/2016 01:25:Yung Middleton RN) Tdap Date: June 2016 (08/01/2016 01:25:Yung Middleton RN) Hepatitis B Vaccine: Uncertain (08/01/2016 01:25:Yung Middleton RN) Rehab Department Manager: [facility] (08/01/2016 01:25:Yung Middleton RN) Feeding Preference: Formula (08/01/2016 01:25:Yung Middleton RN) Benefit of Breast Feed Discussed: Yes (08/01/2016 01:25:Cezar De Jesus RN) Circumcision: N/A (08/01/2016 01:25:Yung Middleton RN) Classes Attended: No (08/01/2016 01:25:Yung Middleton RN) Tubal Ligation: No (08/01/2016 01:25:Yung Middleton RN) Tubal Authorization Signed: N/A (08/01/2016 01:25:Yung Middleton RN) Consent: N/A (08/01/2016 01:25:Yung Middleton RN) Consent Signed: N/A (08/01/2016 01:25:Yung Middleton RN) Pain Management Plans: Epidural (08/01/2016 01:25:Yung Middleton RN) Plans for Labor and Delivery: None (08/01/2016 01:25:Yung Middleton RN) Support Person: Aleksey Rosario (08/01/2016 01:25:Yung Middleton RN) Support Person Relationship: (08/01/2016 01:25:Yung Middleton RN) Cultural/Spritual Practice: No (08/01/2016 01:25:Yung Middleton RN) Spir/Cult Dietary Needs: No (08/01/2016 01:25:Yung Middleton RN) LIVING SITUATION/DISCHARGE PLAN Living Arrangements: House (08/01/2016 01:25:Yung Middleton RN) Adequate Access to:: Electric; Heat; Refrigeration; Plumbing/Running water; Phone; Transportation (08/01/2016 01:25:Yung Middleton RN) WIC Program: Lisa (08/01/2016 01:25:Yung Middleton RN) Discharge Product Management Analyst Person: Aleksey Abernathynandez (08/01/2016 01:25:Yung Middleton RN) Person to Help after Discharge: Aleksey Abernathynandez (08/01/2016 01:25:Yung Middleton RN) Currently Using Commun Resources: No (08/01/2016 01:25:Yung Middleton RN) Outside Agency/Consulting Project Director: No (08/01/2016 01:25:Yung Middleton RN) Car Seat for Discharge: Yes (08/01/2016 01:25:Yung Middleton RN) Adoption Requested: No (08/01/2016 01:25:Yung Middleton RN) Pt Contact w/infant Post : N/A (08/01/2016 01:25:Yung Middleton RN) LABS Blood Type: A Positive (08/01/2016 01:25:Jacqueline Brice RN) Antibody Screen: Negative (08/01/2016 01:25:Jacqueline Brice RN) Rho(G) this : Not Applicable (08/01/2016 01:25:Jacqueline Brice RN) Hemoglobin: 10.6 L (08/03/2016 07:13:QS system process) Hematocrit: 31.7 L (08/03/2016 07:13:QS system process) MCV: 91 (08/03/2016 07:13:QS system process) Group Beta Strep: Negative (08/01/2016 01:25:Jacqueline Brice RN) Gonorrhea: Negative (08/01/2016 01:25:Jacqueline Brice RN) Chlamydia: Negative (08/01/2016 01:25:Jacqueline Brice RN) RPR/VDRL: Nonreactive (08/01/2016 01:25:Jacqueline Brice RN) HIV Results: Negative (08/01/2016 01:25:Jacqueline Brice RN) Hepatitis B: Negative (08/01/2016 01:25:Jacqueline Brice RN) Rubella: Immune (08/01/2016 01:25:Jacqueline Brice RN) OB/PREVIOUS HISTORY Previous Procedures: Ultrasound; NST (08/01/2016 01:25:Yung Middleton RN) Current Procedures: Ultrasound; NST (08/01/2016 01:25:Yung Middleton RN) History of Previous : No (08/01/2016 01:25:Yung Middleton RN) History of Gestational Diabetes: Yes (08/01/2016 01:25:Yung Middleton RN) History of PIH: No (08/01/2016 01:25:Yung Middleton RN) History of Incompetent Cervix: No (08/01/2016 01:25:Yung Middleton RN) History of Placenta Previa/Abrup: (08/01/2016 01:25:Yung Middleton RN) History of Macrosomia: No (08/01/2016 01:25:Yung Middleton RN) History of IUGR: No (08/01/2016 01:25:Yung Middleton RN) History of Hemorrhage: No (08/01/2016 01:25:Yung Middleton RN) History of Loss/Stillborn: No (08/01/2016 01:25:Yung Middleton RN) History of : No (08/01/2016 01:25:Yung Middleton RN) History of D (Rh) Sensitization: No (08/01/2016 01:25:Yung Middleton RN) History Recurrent Loss/Stillborn: No (08/01/2016 01:25:Yung Middleton RN) History Depression/PP Depression: No (08/01/2016 01:25:Yung Middleton RN) History of Uterine Anomaly/YOVANA: No (08/01/2016 01:25:Yung Middleton RN) History of Infertility: No (08/01/2016 01:25:Yung Middleton RN) History of ART Treatment: No (08/01/2016 01:25:Yung Middleton RN) History of YOVANA: No (08/01/2016 01:25:Yung Middleton RN) Comments Obstetrical History: G1- male @ 38wks 5lbs 4oz G2-SAB at 5 weeks G3-Current (08/01/2016 01:25:Jacquleine Brice RN) MEDICAL HISTORY Med Hx Diabetes: Yes (08/01/2016 01:25:Tawny Fuentes RN) Diabetes Type: Gestational Diabetes (08/01/2016 01:25:Yung Middleton RN) Med Hx Hypertension: Yes (08/01/2016 01:25:Yung Middleton RN) Med Hx Heart Disease: No (08/01/2016 01:25:Yung Middleotn RN) Med Hx Autoimmune Disorder: No (08/01/2016 01:25:Yung Middleton RN) Med Hx Kidney Disease/UTI: No (08/01/2016 01:25:Yung Middleton RN) Med Hx Neurologic/Epilepsy: No (08/01/2016 01:25:Yung Middleton RN) Med Hx Psychiatric Disorders: No (08/01/2016 01:25:Yung Middleton RN) Med Hx Hepatitis/Liver Disease: No (08/01/2016 01:25:Yung Middleton RN) Med Hx Varicosities/Phlebitis: No (08/01/2016 01:25:Yung Middleton RN) Med Hx Thyroid Dysfunction: Yes (08/01/2016 01:25:Yung Middleton RN) Med Hx Trauma/Violence: No (08/01/2016 01:25:Yung Middleton RN) Med Hx Blood Transfusion: No (08/01/2016 01:25:Yung Middleton RN) Med Hx Pulmonary (Asthma,TB): No (08/01/2016 01:25:Yung Middleton RN) Med Hx Breast: No (08/01/2016 01:25:Yung Middleton RN) Med Hx LINUX NETWORK SYSTEMS ADMINISTRATOR Surgery: No (08/01/2016 01:25:Yung Middleton RN) Med Hx Hospitalization/Surgery: Yes (08/01/2016 01:25:Yung Middleton RN) Med Hx Anesthetic Complications: No (08/01/2016 01:25:Yung Middleton RN) Med Hx Abnormal Pap Smear: No (08/01/2016 01:25:Yung Middleton RN) Other Medical Diseases: No (08/01/2016 01:25:Yung Middleton RN) Med Hx Significant Family Hx: No (08/01/2016 01:25:Yung Middleton RN) Details of Med/Surg Hx: 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 htn: CHTN on labetalol Pt had partial thyroidectomy for thyroid cancer (December 2014), on synthroid (08/01/2016 01:25:Tawny Fuentes RN) INFECTIOUS HISTORY Inf Hx Gonorrhea: No (08/01/2016 01:25:Yung Middleton RN) Inf Hx Chlamydia: No (08/01/2016 01:25:Yung Middleton RN) Inf Hx Syphilis: No (08/01/2016 01:25:Yung Middleton RN) Inf Hx HIV/AIDS: No (08/01/2016 01:25:Yung Middleton RN) Inf Hx Human Papilloma Virus: No (08/01/2016 01:25:Yung Middleton RN) Inf Hx Pt/Partner Genital Herpes: No (08/01/2016 01:25:Yung Middleton RN) Inf Hx Tuberculosis/Exposure: No (08/01/2016 01:25:Yung Middleton RN) Inf Hx Hepatitis B,C: No (08/01/2016 01:25:Yung Middleton RN) Inf Hx Rash or Viral Illness: No (08/01/2016 01:25:Yung Middleton RN) GENETIC HISTORY Gen Hx Age >=35 at KAEL: No (08/01/2016 01:25:Yung Middleton RN) Gen Hx Thalassemia: No (08/01/2016 01:25:Yung Middleton RN) Gen Hx Congenital Heart Defect: No (08/01/2016 01:25:Yung Middleton RN) Gen Hx Neural Tube Defect: No (08/01/2016 01:25:Yung Middleton RN) Gen Hx Down's Syndrome: No (08/01/2016 01:25:Yung Middleton RN) Gen Hx Konstantin-Sachs: No (08/01/2016 01:25:Yung Middleton RN) Gen Hx Venu: No (08/01/2016 01:25:Yung Middleton RN) Gen Hx Familial Dysautonomia: No (08/01/2016 01:25:Yung Middleton RN) Gen Hx Sickle Cell Disease/Trait: No (08/01/2016 01:25:Yung Middleton RN) Gen Hx Hemophilia/Blood Disorder: No (08/01/2016 01:25:Yung Middleton RN) Gen Hx Muscular Dystrophy: No (08/01/2016 01:25:Yung Middleton RN) Gen Hx Cystic Fibrosis: No (08/01/2016 01:25:Yung Middleton RN) Gen Hx [place] Chorea: No (08/01/2016 01:25:Yung Middleton RN) Gen Hx Mental Retardation/Autism: No (08/01/2016 01:25:Yung Middleton RN) Gen Hx Tested for Fragile X: No (08/01/2016 01:25:Yung Middleton RN) Gen Hx Other Inher/Chromosomal: No (08/01/2016 01:25:Yung Middleton RN) Gen Hx Maternal Metabolic DO: Yes (08/01/2016 01:25:Yung Middleton RN) Gen Hx Pt Father or FOB Defect: No (08/01/2016 01:25:Yung Middleton RN) Gen Hx Other Genetic History: No (08/01/2016 01:25:Yung Middleton RN) Gen Hx Drugs/Meds since LMP: Yes (08/01/2016 01:25:Tawny Fuentes RN) Gen Hx Medications: labetolol, insulin, synthroid, pnv (08/01/2016 01:25:Yeny Cr RN) Details of Genetic History: Pts mother has Type 1 Diabetes (08/01/2016 01:25:Yung Middleton RN)
--- NOTE | 2016-08-20 20:21 | Delivery Summary ---
Del Sum A-C Datetime Report Generated by CPN: 08/20/2016 20:20 DELIVERY PERSONNEL DELIVERY PERSONNEL: [id number];[id number] Delivery Doctor:: Esme Magana CNM Labor and Delivery Nurse:: Yeny Cr RNwater inspector Nurse:: Alexandra Love RN Corporate Administrator/PROTOTYPE SEWER: Zamzam Dominique, CURRICULUM DEVELOPER MATERNAL INFORMATION Delivery Anesthesia: Epidural Medications After Delivery: Pitocin Bolus-Please Comment Meds After Delivery Comment: Pitocin 20 units in 1000mL NSS Estimated Blood Loss (ml): 200 Provider Comments: Pt progressed rapidly to 10/100/+2, pushed over 2 contractions, head delivered, shoulder and body delivered with next ctx. with poor respiratory effort. Cord clamped X2 cut free and handed off to warmner. Spontaneous delivery of placenta, appears intact, 3 VC. Vagina and perineum inspected no lacerations noted. hemostasis acheived with external fundal massage and IV pitocin. to NICU. Mother in stable condition. LABOR SUMMARY EDC: 08/08/2016 00:00 No. Babies in Womb: 1 Attempted: No Labor Anesthesia: Epidural LABOR INFORMATION Reason for Induction: Intrauterine Growth Retardation; Chronic Hypertension; Maternal Diabetes Cervical Ripening Agents: Cervidil; Cytotec @ Oxytocin: Induction Group B Beta Strep: Negative Steroids Given: None Reason Steroids Not Administered: Not Applicable MEMBRANES Membranes Rupture Method: Artificial Rupture of Membranes: 08/02/2016 08:12 Length of Rupture (hr): 7.35 Amniotic Fluid Color: Clear Amniotic Fluid Amount: Moderate STAGES OF LABOR Stage 3 hr: 0 Stage 3 min: 7 VAGINAL DELIVERY Episiotomy: None Laceration Extension: N/A Laceration Type: None Laceration Repair Note: n/a Sponge Count Correct: N/A Sharps Count Correct: N/A CSECTION DELIVERY CSection Incision: N/A BABY A INFORMATION Delivery Date/Time: 08/02/2016 15:33 Method of Delivery: Vaginal Born in Route : No : N/A Forceps: N/A Vacuum Extraction: N/A Shoulder Dystocia : No PRESENTATION/POSITION BABY A Presentation: Cephalic Cephalic Presentation: Vertex Vertex Position: Right Occipital Anterior Breech Presentation: N/A PLACENTA INFORMATION BABY A Placenta Delivery Time : 08/02/2016 15:40 Placenta Method of Delivery: Spontaneous Placenta Status: Delivered SCORES BABY A Heart Rate 1 min: >100 bpm Resp Effort 1 min: Slow, Irregular Reflex Irritability 1 min: Grimace Muscle Tone 1 min: Some Flexion of Extremities Color 1 min: Blue/Pale Resuscitation Effort 1 min: Tactile Stimulation; PPV/NCPAP SCORE 1 MIN: 5 Heart Rate 5 min: >100 bpm Resp Effort 5 min: Slow, Irregular Reflex Irritability 5 min: Grimace Muscle Tone 5 min: Some Flexion of Extremities Color 5 min: Blue/Pale Resuscitation Effort 5 min: Tactile Stimulation; PPV/NCPAP SCORE 5 MIN: 5 Heart Rate 10 min: >100 bpm Resp Effort 10 min: Good Cry Reflex Irritability 10 min: Cough or Sneeze or Pulls Away Muscle Tone 10 min: Some Flexion of Extremities Color 10 min: Body [place], Extremities Blue Resuscitation Effort 10 min: N/A SCORE 10 MIN: 8 INFORMATION BABY A Gestational Age at Delivery: 38.1 Gestational Status: Early Term- 37- 38.6 Weeks Outcome : Liveborn Condition : Stable Infant Sex: Female IDENTIFICATION BABY A Infant Verification Date/Time: 08/02/2016 15:44 ID Band Number: [id number] Mother's Name Verified: Yes Infant RN Verifying Infant: A. Marge RN/ Jaren Love CORD INFORMATION BABY A No. Cord Vessels: 3 Nuchal Cord : N/A Cord Blood Taken: Yes-For Storage (Mom's Blood type +) ASSESSMENT BABY A Complications: Other Complications- Other: Terminal bradycardia Physical Findings at Delivery: Within Normal Limits Skin to Skin: No Material Mixer/ALS Called : Yes Care By: Jaren Love RN Transferred To: NICU RESUSCITATION BABY A Resuscitation Effort: delivered at 1533. to maternal abdomen for dry and stimulation. Delayed cord clamping per H. AAKASH Magana. After approx. 1.5 minutes, infant to warmer. blue, poor tone, intermittent respiratory effort. Nursery notified. HR 60. Pulse ox applied. PPV for approx. 1 minute. Nursery at bedside. HR reassessed, 50. Chest compressions for approx. 1 minute. HR reassessed, 140. Periodic breathing. Infant placed in bassinet and taken to nursery. SIGNATURES Assignment: Kayy Vasquez MD Signature: with User ID: [email or web address] : with User ID: [email or web address]
--- NOTE | 2016-08-20 20:21 | L&D Current Admission ---
Current Admit Datetime Report Generated by CPN: 08/20/2016 20:20 ADMISSION INFORMATION Current Admit Date/Time: 08/01/2016 02:36 (08/01/2016 02:36:Yung Middleton RN) Reason for Admission: Induction of Labor (08/01/2016 02:36:Yung Middleton RN) Chief Complaint: Scheduled Induction of Labor (Annotations: Related to GDM ) (08/01/2016 02:50:Yung Middleton RN) Medications During : Insulin; Labetolol; Vitamin; Levothyroxine Sodium (Synthroid); Rantidine (Zantac) (08/01/2016 02:36:Yung Middleton RN) EGA per Dates: 39.0 (08/01/2016 02:36:QS system process) Method of Arrival: Ambulatory (08/01/2016 02:36:Yung Middleton RN) Admitted From: Home (08/01/2016 02:36:Yung Middleton RN) Reason for Induction- Other: GDM (08/01/2016 02:36:Yung Middleton RN) Records Available: Yes (08/01/2016 02:36:Yung Middleton RN) General Admission Information: Reviewed; Updated; Confirmed (08/01/2016 02:36:Yung Middleton RN) General Admission Reviewed By: Gualberto Middleton RN (08/01/2016 02:36:Yung Middleton RN) BELONGINGS/ADVANCED DIRECTIVES Valuables/Personal Effects: Purse/Wallet; Cell Phone; Contact Lenses; Camera (08/01/2016 02:36:Yung Middleton RN) Disposition of Belongings: Kept with Patient (08/01/2016 02:36:Yung Middleton RN) Advance Direct for Healthcare: No, but Requests Information (08/01/2016 02:36:Yung Middleton RN) Durable Power of Caregiver Assisted Living: No (08/01/2016 02:36:Yung Middleton RN) Living Will: No (08/01/2016 02:36:Yung Middleton RN) Organ Donor: Yes (08/01/2016 02:36:Yung Middleton RN) Pt Rights Information Given: Yes (08/01/2016 02:36:Yung Middleton RN) Pt Understands Pt Rights: Yes (08/01/2016 02:36:Yung Middleton RN) LEARNING ASSESSMENT Knowledge Level: Understands L_D Process; Understands Diagnosis (08/01/2016 02:36:Yung Middleton RN) Barriers to Learning: None (08/01/2016 02:36:Yung Middleton RN) Learning Readiness: Motivated (08/01/2016 02:36:Yung Middleton RN) Learns Best By: 1 to 1 Instruction (08/01/2016 02:36:Yung Middleton RN) Learning Needs: Pain Management; Symptoms to Report; Treatment Plan; Medication; Infant Care (08/01/2016 02:36:Yung Middleton RN) DOMESTIC VIOLANCE SCREENING Dom Viol Threatened/Hurt: No (08/01/2016 02:36:Yung Middleton RN) Hx of Abuse/Neglect past 2yrs: No (08/01/2016 02:36:Yung Middleton RN) Feel Unsafe Going Home: No (08/01/2016 02:36:Yung Middleton RN) Addt'l Observ Indicating Abuse: No (08/01/2016 02:36:Yung Middleton RN) Reason Unable to Complete Screen: N/A, Screen Completed (08/01/2016 02:36:Yung Middleton RN) NUTRITIONAL/FUNCTIONAL SCREENING Problem with Appetite >5 Days: No (08/01/2016 02:36:Yung Middleton RN) Chew/Swallow Difficulties: No (08/01/2016 02:36:Yung Middleton RN) Inappropriate Wt Gain/Loss: No (08/01/2016 02:36:Yung Middleton RN) Presence Skin Breakdown/Ulcer: No (08/01/2016 02:36:Yung Middleton RN) Special Diet: No (08/01/2016 02:36:Yung Middleton RN) Pt Requests Car Sander Visit: No (08/01/2016 02:36:Yung Middleton RN) Hx of Any of the Following?: N/A (08/01/2016 02:36:Yung Middleton RN) New Diagnosis of: Gest Diabetes (08/01/2016 02:36:Yung Middleton RN) Requires Assist w/Ambulation: No (08/01/2016 02:36:Yung Middleton RN) Uses Assist Device to Ambulate: No (08/01/2016 02:36:Yung Middleton RN) Pt Requires Help w/ADL's: No (08/01/2016 02:36:Yung Middleton RN)
--- NOTE | 2016-08-20 20:21 | L&D Admission Assessment ---
LD ADM ASMT Datetime Report Generated by CPN: 08/20/2016 20:20 WEIGHT Weight (lb): 7 (08/04/2016 09:51:QS system process) Weight (lb): 172 (08/04/2016 09:50:QS system process) Weight (lb): 172 (08/02/2016 17:53:QS system process) Weight (lb): 172 (08/02/2016 10:46:QS system process) Weight (lb): 172 (08/01/2016 11:02:QS system process) Weight (lb): 172 (08/01/2016 11:01:QS system process) Weight (lb): 172 (08/01/2016 10:28:QS system process) Weight (lb): 172 (08/01/2016 10:27:QS system process) Weight (lb): 172 (08/01/2016 02:02:QS system process) Weight (kg): 3.2 (08/04/2016 09:51:QS system process) Weight (kg): 78.2 (08/04/2016 09:50:QS system process) Weight (kg): 78.2 (08/02/2016 17:53:QS system process) Weight (kg): 78.2 (08/02/2016 10:46:QS system process) Weight (kg): 78.2 (08/01/2016 11:02:QS system process) Weight (kg): 78.2 (08/01/2016 11:01:QS system process) Weight (kg): 78.2 (08/01/2016 10:28:QS system process) Weight (kg): 78.2 (08/01/2016 10:27:QS system process) Weight (kg): 78.2 (08/01/2016 02:02:QS system process) Total Wt Gain (lb): -148 (08/04/2016 09:51:QS system process) Total Wt Gain (lb): 17 (08/04/2016 09:50:QS system process) Total Wt Gain (lb): 17 (08/02/2016 17:53:QS system process) Total Wt Gain (lb): 17 (08/02/2016 10:46:QS system process) Total Wt Gain (lb): 17 (08/01/2016 11:02:QS system process) Total Wt Gain (lb): 17 (08/01/2016 11:01:QS system process) Total Wt Gain (lb): 17 (08/01/2016 10:28:QS system process) Total Wt Gain (lb): 17 (08/01/2016 10:27:QS system process) Total Wt Gain (lb): 17 (08/01/2016 02:02:QS system process) Wt Gain (kg): -67.5 (08/04/2016 09:51:QS system process) Wt Gain (kg): 7.5 (08/04/2016 09:50:QS system process) Wt Gain (kg): 7.5 (08/02/2016 17:53:QS system process) Wt Gain (kg): 7.5 (08/02/2016 10:46:QS system process) Wt Gain (kg): 7.5 (08/01/2016 11:02:QS system process) Wt Gain (kg): 7.5 (08/01/2016 11:01:QS system process) Wt Gain (kg): 7.5 (08/01/2016 10:28:QS system process) Wt Gain (kg): 7.5 (08/01/2016 10:27:QS system process) Wt Gain (kg): 7.5 (08/01/2016 02:02:QS system process) BMI: 1.2 (08/04/2016 09:51:QS system process) BMI: 30.5 (08/04/2016 09:50:QS system process) BMI: 30.5 (08/02/2016 17:53:QS system process) BMI: 30.5 (08/02/2016 10:46:QS system process) BMI: 30.5 (08/01/2016 11:02:QS system process) BMI: 30.5 (08/01/2016 11:01:QS system process) BMI: 30.5 (08/01/2016 10:28:QS system process) BMI: 30.5 (08/01/2016 10:27:QS system process) DVT RISK ASSESSMENT DVT Risk Total: 1 (08/02/2016 07:30:QS system process) DVT Risk Total: 2 (08/01/2016 19:47:QS system process) DVT Risk Text: Low Risk (<10%) No specific measures, early ambulation (08/02/2016 07:30:QS system process) DVT Risk Text: Moderate Risk (10-20%) - Consider stockings, compresssion device, pharmacological therapy per hospital policy (08/01/2016 19:47:QS system process) EVAN SKIN ASSESSMENT Evan Scale Total: 22 (08/02/2016 07:30:QS system process) Evan Scale Total: 23 (08/01/2016 19:47:QS system process) Evan Scale Total: 23 (08/01/2016 07:30:QS system process) Evan Scale Risk: No Risk of Pressure Ulcer Noted at this Time (08/02/2016 07:30:QS system process) Evan Scale Risk: No Risk of Pressure Ulcer Noted at this Time (08/01/2016 19:47:QS system process) Evan Scale Risk: No Risk of Pressure Ulcer Noted at this Time (08/01/2016 07:30:QS system process) FALL SCREEN Fall Risk Score: 0 (08/02/2016 07:30:QS system process) Fall Risk Score: 20 (08/01/2016 19:47:QS system process) Fall Risk Score: 0 (08/01/2016 07:30:QS system process) Fall Risk Score Definition: No Risk: No action required (08/02/2016 07:30:QS system process) Fall Risk Score Definition: No Risk: No action required (08/01/2016 19:47:QS system process) Fall Risk Score Definition: No Risk: No action required (08/01/2016 07:30:QS system process) ADDITIONAL COMMENTS Assessment Flag: Admission Assessment (08/01/2016 02:50:QS system process)
--- NOTE | 2016-08-20 20:25 | Delivery Summary ---
Del Sum A-C Datetime Report Generated by CPN: 08/20/2016 20:20 DELIVERY PERSONNEL DELIVERY PERSONNEL: [id number] Delivery Doctor:: Esme Magana CNM Labor and Delivery Nurse:: Yeny Cr RNwatch crystal molder Nurse:: Alexandra Love RN First Aid Instructor/ENVIRONMENTAL STUDIES DEPARTMENT CHAIR: Zamzam Dominique, STONEWORK SUPERVISOR MATERNAL INFORMATION Delivery Anesthesia: Epidural Medications After Delivery: Pitocin Bolus-Please Comment Meds After Delivery Comment: Pitocin 20 units in 1000mL NSS Estimated Blood Loss (ml): 200 Provider Comments: Pt progressed rapidly to 10/100/+2, pushed over 2 contractions, head delivered, shoulder and body delivered with next ctx. with poor respiratory effort. Cord clamped X2 cut free and handed off to warmner. Spontaneous delivery of placenta, appears intact, 3 VC. Vagina and perineum inspected no lacerations noted. hemostasis acheived with external fundal massage and IV pitocin. to NICU. Mother in stable condition. LABOR SUMMARY EDC: 08/08/2016 00:00 No. Babies in Womb: 1 Attempted: No Labor Anesthesia: Epidural LABOR INFORMATION Reason for Induction: Intrauterine Growth Retardation; Chronic Hypertension; Maternal Diabetes Cervical Ripening Agents: Cervidil; Cytotec @ Oxytocin: Induction Group B Beta Strep: Negative Steroids Given: None Reason Steroids Not Administered: Not Applicable MEMBRANES Membranes Rupture Method: Artificial Rupture of Membranes: 08/02/2016 08:12 Length of Rupture (hr): 7.35 Amniotic Fluid Color: Clear Amniotic Fluid Amount: Moderate STAGES OF LABOR Stage 3 hr: 0 Stage 3 min: 7 VAGINAL DELIVERY Episiotomy: None Laceration Extension: N/A Laceration Type: None Laceration Repair Note: n/a Sponge Count Correct: N/A Sharps Count Correct: N/A CSECTION DELIVERY CSection Incision: N/A BABY A INFORMATION Delivery Date/Time: 08/02/2016 15:33 Method of Delivery: Vaginal Born in Route : No : N/A Forceps: N/A Vacuum Extraction: N/A Shoulder Dystocia : No PRESENTATION/POSITION BABY A Presentation: Cephalic Cephalic Presentation: Vertex Vertex Position: Right Occipital Anterior Breech Presentation: N/A PLACENTA INFORMATION BABY A Placenta Delivery Time : 08/02/2016 15:40 Placenta Method of Delivery: Spontaneous Placenta Status: Delivered SCORES BABY A Heart Rate 1 min: >100 bpm Resp Effort 1 min: Slow, Irregular Reflex Irritability 1 min: Grimace Muscle Tone 1 min: Some Flexion of Extremities Color 1 min: Blue/Pale Resuscitation Effort 1 min: Tactile Stimulation; PPV/NCPAP SCORE 1 MIN: 5 Heart Rate 5 min: >100 bpm Resp Effort 5 min: Slow, Irregular Reflex Irritability 5 min: Grimace Muscle Tone 5 min: Some Flexion of Extremities Color 5 min: Blue/Pale Resuscitation Effort 5 min: Tactile Stimulation; PPV/NCPAP SCORE 5 MIN: 5 Heart Rate 10 min: >100 bpm Resp Effort 10 min: Good Cry Reflex Irritability 10 min: Cough or Sneeze or Pulls Away Muscle Tone 10 min: Some Flexion of Extremities Color 10 min: Body Nooksack, Extremities Blue Resuscitation Effort 10 min: N/A SCORE 10 MIN: 8 INFORMATION BABY A Gestational Age at Delivery: 38.1 Gestational Status: Early Term- 37- 38.6 Weeks Outcome : Liveborn Condition : Stable Infant Sex: Female IDENTIFICATION BABY A Infant Verification Date/Time: 08/02/2016 15:44 ID Band Number: [id number] Mother's Name Verified: Yes Infant RN Verifying Infant: A. Marge RN/ Jaren Love CORD INFORMATION BABY A No. Cord Vessels: 3 Nuchal Cord : N/A Cord Blood Taken: Yes-For Storage (Mom's Blood type +) ASSESSMENT BABY A Complications: Other Complications- Other: Terminal bradycardia Physical Findings at Delivery: Within Normal Limits Skin to Skin: No Clinical Nurse Educator/ALS Called : Yes Care By: Jaren Love RN Transferred To: NICU RESUSCITATION BABY A Resuscitation Effort: delivered at 1533. to maternal abdomen for dry and stimulation. Delayed cord clamping per H. AAKASH Magana. After approx. 1.5 minutes, infant to warmer. blue, poor tone, intermittent respiratory effort. Nursery notified. HR 60. Pulse ox applied. PPV for approx. 1 minute. Nursery at bedside. HR reassessed, 50. Chest compressions for approx. 1 minute. HR reassessed, 140. Periodic breathing. Infant placed in bassinet and taken to nursery. SIGNATURES Assignment: Kayy Vasquez MD Signature: with User ID: [email or web address] : with User ID: [email or web address]
--- NOTE | 2016-08-20 20:25 | L&D General Admission ---
General Admit Datetime Report Generated by CPN: 08/20/2016 20:20 INFORMATION Patient Age: 31 (08/01/2016 01:19:QS system process) EDC: 08/08/2016 00:00 (08/01/2016 01:25:Jacqueline Brice RN) : 3 (08/01/2016 01:25:Yung Middleton RN) Para: 1 (08/01/2016 01:25:Yung Middleton RN) Term: 1 (08/01/2016 01:25:Yung Middleton RN) : 0 (08/01/2016 01:25:Jacqueline Brice RN) Spontaneous Abortions: 1 (08/01/2016 01:25:Jacqueline Brice RN) Induced Abortions: 0 (08/01/2016 01:25:Jacqueline Brice RN) Livin (08/01/2016 01:25:Yung Middleton RN) Cesareans: 0 (08/01/2016 01:25:Yung Middleton RN) VBACs: 0 (08/01/2016 01:25:Jacqueline Brice RN) Ectopic: 0 (08/01/2016 01:25:Jacqueline Brice RN) Multiple Births: 0 (08/01/2016 01:25:Jacqueline Brice RN) Baby, Number in Womb: 1 (08/01/2016 01:25:Jacqueline Brice RN) CARE Primary Executive Vice President Business Development: [facility] (08/01/2016 01:25:Yung Middleton RN) Adequate Care: Yes (08/01/2016 01:25:Yung Middleton RN) Prepregnancy Weight (lb): 155 (08/01/2016 01:25:Yung Middleton RN) Prepregnancy Weight (kg): 70.5 (08/01/2016 01:25:QS system process) Height (in): 63 (08/04/2016 09:51:QS system process) ALLERGIES Medication Allergy: Yes (08/01/2016 01:25:Yung Middleton RN) Medication Allergies: ondansetron/Pruritis (08/01/2016) (08/01/2016 01:55:QS system process) Latex Allergy: No Latex Allergies (08/01/2016 01:25:Yung Middleton RN) Food Allergies: Mustard (08/01/2016 01:25:Yung Middleton RN) Environmental Allergies: None (08/01/2016 01:25:Yung Middleton RN) COMMUNICATION Primary Language: Libyan (08/01/2016 01:25:Yung Middleton RN) Medical Tx Preferred Language: Libyan (08/01/2016 01:25:Yung Middleton RN) DEMOGRAPHICS Address: [address] [place] [id number] (08/01/2016 01:19:QS system process) Zipcode: [phone] (08/01/2016 01:19:QS system process) Home (08/01/2016 01:19:QS system process) Work (08/01/2016 10:27:QS system process) N: [phone] (08/01/2016 01:19:QS system process) Next of Kin Name: ALEKSEY ROSARIO (08/01/2016 01:19:QS system process) Next of Kin (08/01/2016 01:19:QS system process) Next of Kin Relationship: SPO (08/01/2016 01:19:QS system process) Date of : 1985 (08/01/2016 01:19:QS system process) Marital Status: (08/01/2016 01:19:QS system process) Sex: Female (08/01/2016 01:19:QS system process) Race: Other (08/01/2016 01:19:QS system process) Ethnicity: or (08/01/2016 01:19:QS system process) Jain: None (08/01/2016 01:19:QS system process) DRUG AND ALCOHOL USE Alcohol: Yes (08/01/2016 01:25:Yung Middleton RN) Average Alcohol Consumption: Occasional (08/01/2016 01:25:Yung Middleton RN) Advised to Stop Alcohol: Yes (08/01/2016 01:25:Yung Middleton RN) Alcohol Comments: Before (08/01/2016 01:25:Yung Middleton RN) Cigarettes: Never Smoker. [id number] (08/01/2016 01:25:Yung Middleton RN) Marijuana: No (08/01/2016 01:25:Yung Middleton RN) Cocaine: No (08/01/2016 01:25:Yung Middleton RN) Other Illicit Drugs: No (08/01/2016 01:25:Yung Middleton RN) VACCINE HISTORY Influenza Vaccine: No (08/01/2016 01:25:Yung Middleton RN) Pneumococcal Vaccine: No (08/01/2016 01:25:Yung Middleton RN) Tetanus Vaccine: Yes (08/01/2016 01:25:Yung Middleton RN) Tetanus Date: Dec 2014 (08/01/2016 01:25:Yung Middleton RN) Tdap Vaccine: Yes (08/01/2016 01:25:Yung Middleton RN) Tdap Date: June 2016 (08/01/2016 01:25:Yung Middleton RN) Hepatitis B Vaccine: Uncertain (08/01/2016 01:25:Yung Middleton RN) Social Economist: [facility] (08/01/2016 01:25:Yung Middleton RN) Feeding Preference: Formula (08/01/2016 01:25:Yung Middleton RN) Benefit of Breast Feed Discussed: Yes (08/01/2016 01:25:Cezar De Jesus RN) Circumcision: N/A (08/01/2016 01:25:Yung Middleton RN) Classes Attended: No (08/01/2016 01:25:Yung Middleton RN) Tubal Ligation: No (08/01/2016 01:25:Yung Middleton RN) Tubal Authorization Signed: N/A (08/01/2016 01:25:Yung Middleton RN) Consent: N/A (08/01/2016 01:25:Yung Middleton RN) Consent Signed: N/A (08/01/2016 01:25:Yung Middleton RN) Pain Management Plans: Epidural (08/01/2016 01:25:Yung Middleton RN) Plans for Labor and Delivery: None (08/01/2016 01:25:Yung Middleton RN) Support Person: Aleksey Rosario (08/01/2016 01:25:Yung Middleton RN) Support Person Relationship: (08/01/2016 01:25:Yung Middleton RN) Cultural/Spritual Practice: No (08/01/2016 01:25:Yung Middleton RN) Spir/Cult Dietary Needs: No (08/01/2016 01:25:Yung Middleton RN) LIVING SITUATION/DISCHARGE PLAN Living Arrangements: House (08/01/2016 01:25:Yung Middleton RN) Adequate Access to:: Electric; Heat; Refrigeration; Plumbing/Running water; Phone; Transportation (08/01/2016 01:25:Yung Middleton RN) WIC Program: Lisa (08/01/2016 01:25:Yung Middleton RN) Discharge Data Warehouse Consultant Person: Aleksey Abernathynandez (08/01/2016 01:25:Yung Middleton RN) Person to Help after Discharge: Aleksey Abernathynandez (08/01/2016 01:25:Yung Middleton RN) Currently Using Commun Resources: No (08/01/2016 01:25:Yung Middleton RN) Outside Agency/Pension Fund Manager: No (08/01/2016 01:25:Yung Middleton RN) Car Seat for Discharge: Yes (08/01/2016 01:25:Yung Middleton RN) Adoption Requested: No (08/01/2016 01:25:Yung Middleton RN) Pt Contact w/infant Post : N/A (08/01/2016 01:25:Yung Middleton RN) LABS Blood Type: A Positive (08/01/2016 01:25:Jacqueline Brice RN) Antibody Screen: Negative (08/01/2016 01:25:Jacqueline Brice RN) Rho(G) this : Not Applicable (08/01/2016 01:25:Jacqueline Brice RN) Hemoglobin: 10.6 L (08/03/2016 07:13:QS system process) Hematocrit: 31.7 L (08/03/2016 07:13:QS system process) MCV: 91 (08/03/2016 07:13:QS system process) Group Beta Strep: Negative (08/01/2016 01:25:Jacqueline Brice RN) Gonorrhea: Negative (08/01/2016 01:25:Jacqueline Brice RN) Chlamydia: Negative (08/01/2016 01:25:Jacqueline Brice RN) RPR/VDRL: Nonreactive (08/01/2016 01:25:Jacqueline Brice RN) HIV Results: Negative (08/01/2016 01:25:Jacqueline Brice RN) Hepatitis B: Negative (08/01/2016 01:25:Jacqueline Brice RN) Rubella: Immune (08/01/2016 01:25:Jacqueline Brice RN) OB/PREVIOUS HISTORY Previous Procedures: Ultrasound; NST (08/01/2016 01:25:Yung Middleton RN) Current Procedures: Ultrasound; NST (08/01/2016 01:25:Yung Middleton RN) History of Previous : No (08/01/2016 01:25:Yung Middleton RN) History of Gestational Diabetes: Yes (08/01/2016 01:25:Yung Middleton RN) History of PIH: No (08/01/2016 01:25:Yung Middleton RN) History of Incompetent Cervix: No (08/01/2016 01:25:Yung Middleton RN) History of Placenta Previa/Abrup: (08/01/2016 01:25:Yung Middleton RN) History of Macrosomia: No (08/01/2016 01:25:Yung Middleton RN) History of IUGR: No (08/01/2016 01:25:Yung Middleton RN) History of Hemorrhage: No (08/01/2016 01:25:Yung Middleton RN) History of Loss/Stillborn: No (08/01/2016 01:25:Yung Middleton RN) History of : No (08/01/2016 01:25:Yung Middleton RN) History of D (Rh) Sensitization: No (08/01/2016 01:25:Yung Middleton RN) History Recurrent Loss/Stillborn: No (08/01/2016 01:25:Yung Middleton RN) History Depression/PP Depression: No (08/01/2016 01:25:Yung Middleton RN) History of Uterine Anomaly/YOVANA: No (08/01/2016 01:25:Yung Middleton RN) History of Infertility: No (08/01/2016 01:25:Yung Middleton RN) History of ART Treatment: No (08/01/2016 01:25:Yung Middleton RN) History of YOVANA: No (08/01/2016 01:25:Yung Middleton RN) Comments Obstetrical History: G1- male @ 38wks 5lbs 4oz G2-SAB at 5 weeks G3-Current (08/01/2016 01:25:Jacqueline Brice RN) MEDICAL HISTORY Med Hx Diabetes: Yes (08/01/2016 01:25:Tawny Fuentes RN) Diabetes Type: Gestational Diabetes (08/01/2016 01:25:Yung Middleton RN) Med Hx Hypertension: Yes (08/01/2016 01:25:Yung Middleton RN) Med Hx Heart Disease: No (08/01/2016 01:25:Yung Middleton RN) Med Hx Autoimmune Disorder: No (08/01/2016 01:25:Yung Middleton RN) Med Hx Kidney Disease/UTI: No (08/01/2016 01:25:Yung Middleton RN) Med Hx Neurologic/Epilepsy: No (08/01/2016 01:25:Yung Middleton RN) Med Hx Psychiatric Disorders: No (08/01/2016 01:25:Yung Middletno RN) Med Hx Hepatitis/Liver Disease: No (08/01/2016 01:25:Yung Middleton RN) Med Hx Varicosities/Phlebitis: No (08/01/2016 01:25:Yung Middleton RN) Med Hx Thyroid Dysfunction: Yes (08/01/2016 01:25:Yung Middleton RN) Med Hx Trauma/Violence: No (08/01/2016 01:25:Yung Middleton RN) Med Hx Blood Transfusion: No (08/01/2016 01:25:Yung Middleton RN) Med Hx Pulmonary (Asthma,TB): No (08/01/2016 01:25:Yung Middleton RN) Med Hx Breast: No (08/01/2016 01:25:Yung Middleton RN) Med Hx ACCOUNTS PAYABLE OR RECEIVABLE CLERK Surgery: No (08/01/2016 01:25:Yung Middleton RN) Med Hx Hospitalization/Surgery: Yes (08/01/2016 01:25:Yung Middleton RN) Med Hx Anesthetic Complications: No (08/01/2016 01:25:Yung Middleton RN) Med Hx Abnormal Pap Smear: No (08/01/2016 01:25:Yung Middleton RN) Other Medical Diseases: No (08/01/2016 01:25:Yung Middleton RN) Med Hx Significant Family Hx: No (08/01/2016 01:25:Yung Middleton RN) Details of Med/Surg Hx: 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 htn: CHTN on labetalol Pt had partial thyroidectomy for thyroid cancer (December 2014), on synthroid (08/01/2016 01:25:Tawny Fuentes RN) INFECTIOUS HISTORY Inf Hx Gonorrhea: No (08/01/2016 01:25:Yung Middleton RN) Inf Hx Chlamydia: No (08/01/2016 01:25:Yung Middleton RN) Inf Hx Syphilis: No (08/01/2016 01:25:Yung Middleton RN) Inf Hx HIV/AIDS: No (08/01/2016 01:25:Yung Middleton RN) Inf Hx Human Papilloma Virus: No (08/01/2016 01:25:Yung Middleton RN) Inf Hx Pt/Partner Genital Herpes: No (08/01/2016 01:25:Yung Middleton RN) Inf Hx Tuberculosis/Exposure: No (08/01/2016 01:25:Yung Middleton RN) Inf Hx Hepatitis B,C: No (08/01/2016 01:25:Yung Middleton RN) Inf Hx Rash or Viral Illness: No (08/01/2016 01:25:Yung Middleton RN) GENETIC HISTORY Gen Hx Age >=35 at KAEL: No (08/01/2016 01:25:Yung Middleton RN) Gen Hx Thalassemia: No (08/01/2016 01:25:Yung Middleton RN) Gen Hx Congenital Heart Defect: No (08/01/2016 01:25:Yung Middleton RN) Gen Hx Neural Tube Defect: No (08/01/2016 01:25:Yung Middleton RN) Gen Hx Down's Syndrome: No (08/01/2016 01:25:Yung Middleton RN) Gen Hx Konstantin-Sachs: No (08/01/2016 01:25:Yung Middleton RN) Gen Hx Venu: No (08/01/2016 01:25:Yung Middleton RN) Gen Hx Familial Dysautonomia: No (08/01/2016 01:25:Yung Middleton RN) Gen Hx Sickle Cell Disease/Trait: No (08/01/2016 01:25:Yung Middleton RN) Gen Hx Hemophilia/Blood Disorder: No (08/01/2016 01:25:Yung Middleton RN) Gen Hx Muscular Dystrophy: No (08/01/2016 01:25:Yung Middleton RN) Gen Hx Cystic Fibrosis: No (08/01/2016 01:25:Yung Middleton RN) Gen Hx [place] Chorea: No (08/01/2016 01:25:Yung Middleton RN) Gen Hx Mental Retardation/Autism: No (08/01/2016 01:25:Yung Middleton RN) Gen Hx Tested for Fragile X: No (08/01/2016 01:25:Yung Middleton RN) Gen Hx Other Inher/Chromosomal: No (08/01/2016 01:25:Yung Middleton RN) Gen Hx Maternal Metabolic DO: Yes (08/01/2016 01:25:Yung Middleton RN) Gen Hx Pt Father or FOB Defect: No (08/01/2016 01:25:Yung Middleton RN) Gen Hx Other Genetic History: No (08/01/2016 01:25:Yung Middleton RN) Gen Hx Drugs/Meds since LMP: Yes (08/01/2016 01:25:Tawny Fuentes RN) Gen Hx Medications: labetolol, insulin, synthroid, pnv (08/01/2016 01:25:Yeny Cr RN) Details of Genetic History: Pts mother has Type 1 Diabetes (08/01/2016 01:25:Yung Middleton RN)
== END 2016-08-04 12:22 | disposition home or self-care (01) | DRG 774 ==
LOC: LR 01:17 → 2S 08-02 17:48
PROVIDERS: ADMIT Obstetrics & Gynecology; ATTEND Obstetrics & Gynecology
PROC: 10E0XZZ Delivery of Products of Conception, External Approach (ICD-10-PCS; principal; 2016-08-02)
PROC: 10907ZC Drainage of Amniotic Fluid, Therapeutic from Products of Conception, Via Natural or Artificial Opening (ICD-10-PCS; 2016-08-02)
DX: O36.5930 Maternal care for other known or suspected poor fetal growth, third trimester, not applicable or unspecified (principal); O10.92 Unspecified pre-existing hypertension complicating childbirth; O24.424 Gestational diabetes mellitus in childbirth, insulin controlled; O99.284 Endocrine, nutritional and metabolic diseases complicating childbirth; E89.0 Postprocedural hypothyroidism; Z3A.39 39 weeks gestation of pregnancy; Z37.0 Single live birth
CPT/HCPCS: 36415; 80053; 80307; 81005; 82962; 83615; 84550; 85025; 85027; 86592; 86850; 86900; 86901; 88307; J1815; J2370; J2590; J3010; J3490